=== PATIENT | male | born 1955 | race Caucasian/White ===

== ENCOUNTER 2022-10-24 12:25 | Outpatient (OUT) | payer BC, SELFPAY ==
[2022-10-24 12:59] LABS: Basophils Percent Auto 0.7 % (0.2-2.0); Eosinophils Absolute Auto 0.2 10^3/uL (0.0-0.7); Eosinophils Percent Auto 3.3 % (0.9-7.0); Hematocrit 41.1 % (42.0-54.0); Hemoglobin 14.5 g/dL (14.0-18.0); Lymphocytes Absolute Auto 1.3 10^3/uL (1.2-3.8); Mean Corpuscular HGB Conc 35.3 g/dL (29.9-35.2); Mean Corpuscular Hemoglobin 31.9 pg (25.9-34.0); Mean Corpuscular Volume 90.3 fL (80.0-94.0); Monocytes Absolute Auto 0.5 10^3/uL (0.3-0.8); Monocytes Percent Auto 9.7 % (1.7-12.0); Neutrophils Absolute Auto 3.5 10^3/uL (1.4-6.5); Neutrophils Percent Auto 63.3 % (43.0-75.0); Platelet Count 160 10^3/uL (150-450); Red Blood Count 4.55 10^6/uL (4.70-6.10); Red Cell Distribution Width 12.8 % (11.0-15.0); White Blood Count 5.5 10^3/uL (4.0-11.0)
[2022-10-24 13:29] LABS: Estimated Average Glucose 82 mg/dL; Glycohemoglobin A1C 4.5 % (4.5-6.2)
[2022-10-24 13:40] LABS: Alanine Aminotransferase 30 U/L (16-63); Albumin Globulin Ratio 1.4; Alkaline Phosphatase 56 U/L (46-116); Aspartate Amino Transferase 17 U/L (15-37); BUN Creatinine Ratio 15.9; Bilirubin Direct 0.3 mg/dL (0.0-0.2); Bilirubin Total 2.3 mg/dL (0.2-1.0); Carbon Dioxide 25.7 mmol/L (21.0-32.0); Chloride 102 mmol/L (98-107); Chol HDL Ratio 2.6; Cholesterol 152 mg/dL (<=200); Estimated GFR (African America >60 (>=60); Estimated GFR (Non-African Ame >60 (>=60); Globulin 2.8 g/dL; Glucose 82 mg/dL (74-106); HDL Cholesterol 58 mg/dL (40-60); LDL Cholesterol Calculated 83.6 mg/dL; Potassium 3.7 mmol/L (3.5-5.1); Sodium 138 mmol/L (136-145); Thyroid Stimulating Hormone 1.571 uIU/mL (0.358-3.740); Total Protein 6.8 g/dL (6.4-8.2); Triglycerides 52 mg/dL (<=150); VLDL CHOLESTEROL 10.4 mg/dL
[2022-10-24 13:43] LABS: Prostate Specific Antigen Scrn 4.77 ng/mL (<=4.00)
== END 2022-10-24 12:26 | disposition home or self-care (01) ==
PROVIDERS: PCP Family Medicine; Visit Provider Family Medicine
DX: Z00.00 Encounter for general adult medical examination without abnormal findings (principal); Z12.5 Encounter for screening for malignant neoplasm of prostate
CPT/HCPCS: 36415; 80048; 80061; 80076; 83036; 84443; 85025; G0103

== ENCOUNTER 2022-10-30 12:59 | Outpatient (OUT) | payer BC, SELFPAY ==
--- NOTE | 2022-10-30 13:01 | CA_ITS ---
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1955 Requested By: NICOLAS THOMPSON Order Number: [id number] Reading MD: SHAWN BOWMAN Interpretive Statements Predominant rhythm is sinus with average rate of 57 bpm Tachycardia - max rate of 177 bpm - longest episode of 12sec w/ rate of 101 bpm - 13 episodes of PSVT w/ longest duration of 11 beats Bradycardia - min rate of 33 bpm, occurring at 2346 - longest episdoe of 2h 24min 57sec w/ ratges of 35-48 bpm Ventricular ectopy - 1,081 total (<1%) - 1,051 PVC - 20 couplets - 10 trigeminy Patient triggered events: 11 - associated with symptoms of chest pain, palpitations, SOB and lightheadedness - associated with rates of 59, 52, 55, 56, 55 and the remainder NSR Impression: Predominant rhythm is sinus with average rate of 57 bpm Fastest rate of 177 bpm and slowest rate of 33 bpm 1,051 PVC, 20 couplets, 10 trigeminy 13 episodes of PSVT w longest duration of 11 beats No blocks or pauses Electronically Signed On 11-23-2022 7:36:15 EDT by SHAWN BOWMAN
== END 2022-10-30 13:00 | disposition home or self-care (01) ==
LOC: CARD 13:00
PROVIDERS: PCP Family Medicine; Visit Provider Family Medicine
DX: R07.9 Chest pain, unspecified (principal)
CPT/HCPCS: 93246

== ENCOUNTER 2022-11-06 07:34 | Outpatient (OUT) | payer BC, SELFPAY ==
--- NOTE | 2022-11-06 | PCN_ITS ---
CARDIAC STRESS TEST Requesting Physician:? Procedure Date:? 11/06/2022 This was a treadmill stress test with myocardial perfusion imaging performed at the [facility] on 11/06/2022. Informed consent was obtained.? Intravenous line was secured and the patient was attached to electrocardiographic monitoring.? Baseline vital signs and ECG were obtained.? The patient exercised on the treadmill according to the Quoc protocol for 10 minutes and 14 seconds and reached stage 4 with 11.4 METS achieved.? Resting heart rate was 45 BPM and peak heart rate was 134 BPM, representing 87% of maximal predicted heart rate.?? Resting blood pressure was 90/58 and peak blood pressure was 142/64.? Reason for termination of the test was fatigue and achievement of target heart rate. Resting ECG showed sinus bradycardia with non-specific ST-T wave changes in the inferior leads.? ECG during treadmill exercise test showed evidence of sinus tachycardia with occasional PVCs and upsloping ST segment depressions in the inferior and lateral leads.? At the end of the test, ECG changes resolved and returned to baseline.? The patient went on to obtain myocardial perfusion images following the test. SUMMARY OF THE FINDINGS: 1.? No evidence of ischemic ECG changes seen with stress and exercise test. 2.? Appropriate heart rate and blood pressure response to exercise. 3.? 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 4.? Myocardial perfusion images will be reported separately. BRENDAD
--- NOTE | 2022-11-06 07:15 | NM_ITS ---
Patient: CARMEN EASON Exam Date: 11/06/2022 : 1955 Gender:M Ordering : DR Dmitry Pierre . Admission #: [id number] Family : Order #: [id number] CLICK HERE TO VIEW EXAM RADIOLOGY REPORT PROCEDURE: NM TIFF PERF SPECT REST STR COMPARISON: None. INDICATIONS: PALPITATIONS, SHORTNESS OF BREATH TECHNIQUE: Exam Description: Stress/Rest one day protocol gated SPECT Rest Imagin.2 mCi Tc-99m Cardiolite IV on 11/06/2022 Stress Imaging 26.2 mCi Tc-99m Cardiolite IV on 11/06/2022 Exercise Protocol: Quoc Heart Rate (bpm): Rest: 45 Max: 134 PMHR: 87 Blood Pressure: Rest: 90/58 Max: 142/64 Exercise Time: Minutes: 10 Seconds: 14 Stage Reached: Stage: 4 Mets 11.4 Symptoms: Rest and peak stress ECG findings were pending and the exercise portion of the study was pending per attending physician Dr. BATES . For more details please see separate cardiac stress test report. FINDINGS: QUALITY OF STUDY: Good. PERFUSION DEFECT: LOCATION: Basal inferoseptal. Mid-inferoseptal. Apical inferior. SIZE: Medium (3-4 segments). SEVERITY: Moderate. TYPE: Persistent. WALL MOTION: Normal. LV SIZE: Normal. 113 mL. TID / TCD: 0.8 LVEF: Normal. Calculated EF 69%. SUMMARY: Myocardial perfusion imaging study has ABNORMAL findings. CONCLUSION: 1. Moderate size moderate severity fixed defect inferior wall, RCA distribution 2. No reversible ischemia 3. Exercise test results pending Dictated by: Rizwan Prieto MD on 11/07/2022 at 12:49 Approved by: Rizwan Prieto MD on 11/07/2022 at 12:51
== END 2022-11-06 07:35 | disposition home or self-care (01) ==
LOC: NM 07:34
PROVIDERS: PCP Family Medicine; Visit Provider Family Medicine
DX: R07.9 Chest pain, unspecified (principal)
CPT/HCPCS: 78452; 93017; A9500

== ENCOUNTER 2023-12-13 06:33 | Outpatient (OUT) | payer BC, SELFPAY ==
[2023-12-13 06:54] LABS: Basophils Percent Auto 0.6 % (0.2-2.0); Eosinophils Absolute Auto 0.2 10^3/uL (0.0-0.7); Eosinophils Percent Auto 4.4 % (0.9-7.0); Hemoglobin 14.4 g/dL (14.0-18.0); Immature Granulocytes Abs Auto 0.01 10^3/uL (0.00-0.03); Immature Granulocytes Pct Auto 0.2 % (0.0-0.5); Lymphocytes Absolute Auto 1.2 10^3/uL (1.2-3.8); Lymphocytes Percent Auto 22.6 % (20.5-60.0); Mean Corpuscular HGB Conc 34.3 g/dL (29.9-35.2); Mean Corpuscular Hemoglobin 31.7 pg (25.9-34.0); Mean Corpuscular Volume 92.5 fL (80.0-94.0); Mean Platelet Volume 11.4 fL (9.5-13.5); Monocytes Absolute Auto 0.5 10^3/uL (0.3-0.8); Monocytes Percent Auto 8.7 % (1.7-12.0); Neutrophils Absolute Auto 3.3 10^3/uL (1.4-6.5); Neutrophils Percent Auto 63.5 % (43.0-75.0); Platelet Count 154 10^3/uL (150-450); Red Blood Count 4.54 10^6/uL (4.70-6.10); Red Cell Distribution Width 12.5 % (11.0-15.0); White Blood Count 5.2 10^3/uL (4.0-11.0)
[2023-12-13 07:12] LABS: Estimated Average Glucose 85 mg/dL; Glycohemoglobin A1C 4.6 % (4.5-6.2)
[2023-12-13 07:21] LABS: Alanine Aminotransferase 26 U/L (16-63); Albumin Globulin Ratio 1.6; Albumin Level 3.9 g/dL (3.4-5.0); Alkaline Phosphatase 55 U/L (46-116); Aspartate Amino Transferase 16 U/L (15-37); Bilirubin Direct 0.4 mg/dL (0.0-0.2); Bilirubin Total 2.5 mg/dL (0.2-1.0); Calcium 9.4 mg/dL (8.5-10.1); Chloride 104 mmol/L (98-107); Chol HDL Ratio 2.5; Cholesterol 149 mg/dL (<=200); Estimated GFR (African America >60 (>=60); Estimated GFR (Non-African Ame >60 (>=60); Globulin 2.5 g/dL; Glucose 89 mg/dL (74-106); HDL Cholesterol 60 mg/dL (40-60); LDL Cholesterol Calculated 77.4 mg/dL; Sodium 138 mmol/L (136-145); Thyroid Stimulating Hormone 2.133 uIU/mL (0.358-3.740); Total Protein 6.4 g/dL (6.4-8.2); Triglycerides 58 mg/dL (<=150); VLDL CHOLESTEROL 11.6 mg/dL
[2023-12-13 07:30] LABS: Anion Gap 8.9; Carbon Dioxide 29.1 mmol/L (21.0-32.0)
== END 2023-12-13 06:34 | disposition home or self-care (01) ==
LOC: LAB 06:33
PROVIDERS: PCP Family Medicine; Visit Provider Family Medicine
DX: Z00.00 Encounter for general adult medical examination without abnormal findings (principal)
CPT/HCPCS: 36415; 80048; 80061; 80076; 83036; 84443; 85025; G0103

== ENCOUNTER 2024-01-17 13:59 | Outpatient (OUT) | payer BC, SELFPAY ==
--- OUTSIDE RECORDS SUMMARY | 2024-01-17 14:11 | XMS_ITS | CCD ---
Author Organization [facility] Care Team Providers Care Invoicing Specialist Name Role Phone OREN MARK Admitting Unavailable DR DMITRY THOMPSON Primary Care Unavailable OREN MARK Attending Unavailable OREN MARK Consulting Unavailable DR DMITRY THOMPSON Primary Care Unavailable OREN MARK Admitting Unavailable OREN MARK Attending Unavailable OREN MARK Admitting Unavailable DR DMITRY THOMPSON Primary Care Unavailable OREN MARK Attending Unavailable OREN MARK Consulting Unavailable CATHI SÁNCHEZ Attending Unavailable HILARIO LOAIZA Attending Unavail able DMITRY THOMPSON Attending Unavailable CHHAYA WILLARD Attending Unavailable Dmitry Thompson MD Primary Care Provider [phone] DMITRY THOMPSON Primary Care Physician [phone] Allergies Allergy Classification Reported Allergen(s) Allergy Type Date of Onset Reaction(s) Facility (3 sources) Influenza Vaccines Propensity to adverse reactions 4 Other [facility] (1 source) Influenza virus antigen (substance); Translations: [flu vaccines] Drug allergy Eruption of skin (disorder) [facility] Medications Current Medications Medication Drug Class(es) Dates Sig (Normalized) Sig (Original) Ascorbic Acid (1 source) Vitamin C Start: 4 Vitamin C Daily, Refills(s) 0 Start Date: 12/30/23 Status: Ordered aspirin 81 mg oral capsule (1 source) Platelet Aggregation Inhibitor, Nonsteroidal Anti-inflammatory Drug Start: 4 take 1 mg by mouth every twenty-four hours aspirin 81 mg oral capsule mg cap(s), Oral, q24hr, Refills(s) 0 Start Date: 12/30/23 Status: Ordered bisacodyl 5 mg delayed release oral tablet (2 sources) Stimulant Laxative Start: 4 End: 4 take 1 tablet by mouth once bisacodyl (Dulcolax) 5 MG EC tablet Indications: Screening for malignant neoplasm of colon Take 1 tablet (5 mg) by mouth 1 time for 1 dose Do not crush, chew, or split. Take as detailed on clinic hand out for colonoscopy prep 1 tablet 12/30/2023 12/30/2023 Active Fish Oils (1 source) Start: 4 Fish Oil Oral, Refill(s) 0 Start Date: 12/30/23 Status: Ordered Hydroxychloroquine (3 sources) Antimalarial, Antirheumatic Agent Start: 4 hydroxychloroquine Oral, Refills(s) 0 Start Date: 12/30/23 Status: Ordered take 1 tablet by mouth every wee k hydroxychloroquine (Plaquenil) 200 MG tablet Take 200 mg by mouth 1 (one) time per week Active Ibuprofen (1 source) Nonsteroidal Anti-inflammatory Drug Start: 12-30-2023 ibuprofen Refills(s) 0 Start Date: 12/30/23 Status: Ordered polyethylene glycol 3350 57913 mg powder for oral solution (2 sources) Osmotic Laxative Start: 12-30-2023 End: 12-30-2023 take 17 g by mouth once polyethylene glycol, PEG, 3350 (Glycolax) 17 GM/SCOOP powder Indications: Colonoscopy Take 238 g by mouth 1 (one) time for 1 dose Take as detailed from clinic hand out for colonoscopy prep 238 g 12/30/2023 12/30/2023 Active tadalafil 10 mg oral tablet (1 source) Phosphodiesterase 5 Inhibitor Start: 12-30-2023 Cialis 10 mg Tab 10 mg = 1 tab(s), Oral, As Directed, PRN for erectile dysfunction, # 30 tab(s), Refills(s) 3, Pharmacy: [facility]/pharmacy #[id number], 185, cm, 12/30/23 10:37:00 EDT, Height/Length Dosing, 103, kg, 12/30/23 10:37:00 EDT, Weight Dosing Start Date: 12/30/23 Status: Ordered tamsulosin hydrochloride 0.4 mg oral capsule (1 source) alpha-Adrenergic Petra Start: 12-30-2023 take 1 capsule by mouth once daily tamsulosin 0.4 mg Cap 0.4 mg = 1 cap(s), Oral, Daily, # 30 cap(s), Refills(s) 11, Pharmacy: [facility]/pharmacy #[id number], 185, cm, 12/30/23 10:37:00 EDT, Height/Length Dosing, 103, kg, 12/30/23 10:37:00 EDT, Weight Dosing Start Date: 12/30/23 Status: Ordered Vitamin D (1 source) Start: 12-30-2023 Vitamin D [employer] t, Oral, qWeek, Refills(s) 0 Start Date: 12/30/23 Status: Ordered Problems Active Problems Problem Classification Problem Date Documented Da te Episodic/Chronic Cardiac dysrhythmias (1 source) Atrial fibrillation 12-30-2023 Chronic Headache; including migraine (1 source) Headache 12-30-2023 Episodic Hyperplasia of prostate (5 sources) Benign prostatic hyperplasia; Translations: [Benign prostatic hyperplasia with lower urinary tract symptoms] Onset: 4 12-02-2023 Chronic Other male genital disorders (2 sources) Male erectile dysfunction, unspecified; Translations: [Erectile dysfunction] Onset: 4 Chronic Other nutritional; endocrine; and metabolic disorders (4 sources) Gilbert's syndrome; Translations: [Gilbert syndrome] Onset: 4 12-02-2023 Chronic Other screening for suspected conditions (not mental disorders or infectious disease) (7 sources) Raised prostate specific antigen; Translations: [Elevated prostate specific antigen [PSA]] Onset: 4 12-13-2023 Episodic Other upper respiratory disease (3 sources) Allergic rhinitis; Translations: [Allergic rhinitis, unspecified] Onset: 4 12-02-2023 Chronic Phlebitis; thrombophlebitis and thromboembolism (3 sources) Thrombophlebitis of superficial veins of lower extremity; Translations: [Phlebitis and thrombophlebitis of superficial vessels of left lower extremity] Onset: 4 12-02-2023 Episodic Residual codes; unclassified (3 sources) Obstructive sleep apnea syndrome; Translations: [Obstructive sleep apnea (adult) (pediatric)] Onset: 4 12-02-2023 Chronic Unclassified (3 sources) CONTACT W/AND (SUSP) EXPOS COVID-19; Translations: [CONTACT W/AND (SUSP) EXPOS COVID-19] Onset: 2 Varicose veins of lower extremity (3 sources) Varicose veins of lower extremity; Translations: [Varicose veins of bilateral lower extremities with pain] Onset: 4 12-02-2023 Episodic Viral infection (1 source) COVID-19; Translations: [COVID-19] Onset: 2 Past or Other Problems Problem Classification Problem Date Documented Da te Episodic/Chronic Nonspecific chest pain (3 sources) Central chest pain; Translations: [Chest pain, unspecified] Onset: 12-02-2023 Resolved: 12-02-2023 12-02-2023 Episodic Unclassified (1 source) CONTACT W/AND (SUSP) EXPOS COVID-19; Translations: [CONTACT W/AND (SUSP) EXPOS COVID-19] Onset: 12-27-2021 Results Test Name Value Interpretation Reference Range Facility Ambulatory Visit Summaryon 1 Ambulatory Visit Summary Ambulatory Visit Summary SERGIO EASON :1955 Visit Date:12/30/2023 Ambulatory Visit Instructions Your Diagnosis Elevated PSA BPH with urinary obstruction ED (erectile dysfunction) Tests Performed MRI Pelvis (Soft Tissue) w/ + w/o contrast -- Results Pending -- Please visit your patient portal for your results or contact your primary care physician. Your Care Team Attending Physician - HILARIO LOAIZA MD Primary Care Physician - DMITRY THOMPSON MD This Is Your Medications List Contact prescribing physician if questions or concerns ascorbic acid (Vitamin C) aspirin (aspirin 81 mg oral capsule) ergocalciferol (Vitamin D) hydroxychloroquine ibuprofen omega-3 polyunsaturated fatty acids (Fish Oil) Procedures Performed Colonoscopy. Discharge Vitals Heart Rate (Peripheral) 51 Blood Pressure 129/78 Height 185 cm Height 73 in Weight 103 kg Weight 226.6 lb BMI 30.09 What to do next You Need to Schedule the Following Appointments Follow Up with HILARIO LOAIZA MD, URL When: Where: Medications What How Much When Instructions Unchanged ascorbic acid (Vitamin C) Every day Contact prescribing physician if questions or concerns Unchanged aspirin (aspirin 81 mg oral capsule) Every 24 hours Contact prescribing physician if questions or concerns Unchanged ergocalciferol (Vitamin D) Every week Contact prescribing physician if questions or concerns Unchanged hydroxychloroquine Contact prescribing physician if questions or concerns Unchanged ibuprofen Contact prescribing physician if questions or concerns Unchanged omega-3 polyunsaturated fatty acids (Fish Oil) Contact prescribing physician if questions or concerns Allergies flu vaccines (Rash) Problems Ongoing - Any problem that you are currently receiving treatment for. Atrial fibrillation BPH with urinary obstruction ED (erectile dysfunction) Elevated PSA Montcalm syndrome Headache Patient Survey You may receive a survey via text or e-mail asking about your office visit. Please share your experience with us by completing your survey. We appreciate your feedback and thank you for choosing us for your care. Education Materials Prostate Cancer Screening Prostate cancer screening is testing that is done to check for the presence of prostate cancer in men. The prostate gland is a walnut-sized gland that is located below the bladder and in front of the rectum in males. The function of the prostate is to add fluid to semen during ejaculation. Prostate cancer is one of the most common types of cancer in men. Who should have prostate cancer screening? Screening recommendations vary based on age and other risk factors, as well as between the professional organizations who make the recommendations. In general, screening is recommended if: ? You are age 50 to 70 and have an average risk for prostate cancer. You should talk with your health care provider about your need for screening and how often screening should be done. Because most prostate cancers are slow growing and will not cause , screening in this age group is generally reserved for men who have a 10- to 15-year life expectancy. ? You are younger than age 50, and you have these risk factors: ? Having a father, brother, or uncle who has been diagnosed with prostate cancer. The risk is higher if your family member's cancer occurred at an early age or if you have multiple family members with prostate cancer at an early age. ? Being a male who is Black or is of [place] or sub-Saharan descent. In general, screening is not recommended if: ? You are younger than age 40. ? You are between the ages of 40 and 49 and you have no risk factors. ? You are 70 years of age or older. At this age, the risks that screening can cause are greater than the benefits that it may provide. If you are at high risk for prostate cancer, your health care provider may recommend that you have screenings more often or that you start screening at a younger age. How is screening for prostate cancer done? The recommended prostate cancer screening test is a blood test called the prostate-specific antigen (PSA) test. PSA is a protein that is made in the prostate. As you age, your prostate naturally produces more PSA. Abnormally high PSA levels may be caused by: ? Prostate cancer. ? An enlarged prostate that is not caused by cancer (benign prostatic hyperplasia, or BPH). This condition is very common in older men. ? A prostate gland infection (prostatitis) or urinary tract infection. ? Certain medicines such as male hormones (like testosterone) or other medicines that raise testosterone levels. A rectal exam may be done as part of prostate cancer screening to help provide information about the size of your prostate gland. When a rectal exam is performed, it should be done after th (more content not included)... Normal [facility] Urology Office/Clinic Noteon 12-30-2023 Urology Office/Clinic Note Urology Office/Clinic Note Chief Complaint new patient - elevated psa HPI Staff [address] male [address] Dr[address] Thompson for elevated PSA. PSA: 12/28/14 - 1.68 09/16/19 - 2.08 12/13/23 - 8.50 Dysuria: no Incomplete bladder emptying: no Hematuria: no Frequency: q2-3 hours Urgency: mild Nocturia: 1x Stream: slower stream Leaking: no Post void dripping: no Wearing pads/ Depends: no Urge incontinence: no Stress incontinence: no Incontinence without Sensory Awareness: no Abdominal pain: no Flank pain: no Sexual complaints: no History of Present Illness Tests reviewed: reviewed UA, PSA, labs, external records. I have reviewed the previous health record information and history for this patient from external provider. I have reviewed and verified the staff HPI to be accurate for this encounter. There have been no associated fever, chills, flank pain, or blood in the urine. Denies any urinary infections since last encounter. Review of Systems PHQ Score Initial Depression Screen Score: 0 SCORE ROS - Provider Constitutional: denies weight loss, denies hot flashes. Eyes: denies eye problems. Gastrointestinal: denies nausea, denies vomiting. Cardiovascular: denies chest pain or angina. Integumentary: no dryness Musculoskeletal: denies musculoskeletal symptoms. ENMT: denies otolaryngeal symptoms. Respiratory: no shortness of breath. Heme/Lymph: denies easy bleeding tendency, denies easy bruising tendency. Psychiatric: no confusion, no anxiety. Genitourinary: See HPI. Physical Exam Vitals & Measurements HR: 51(Peripheral) BP: 129/78 HT: 73 in HT: 185 cm WT: 103 kg WT: 226.6 lb BMI: 30.09 General Appearance: alert, no distress, well nourished, well developed male. Head: normocephalic . Eyes: normal orbit and globe. ENMT: normal examination of external ears. Genitourinary: normal scrotum, normal testes, normal urethra, normal epididymis, normal vas deferens/spermatic cord. Penis: normal shaft, normal glans, circumcised. Prostate: normal prostate, estimated weight 45 gms, no hard nodule observed. Skin: warm, dry, no bruising. Psychiatric: cooperative, affect appropriate for age, normal judgement, euthymic mood. Assessment/Plan [address] Dr[address] Thompson for elevated PSA. Hx of Gilbert's Disease. Anesthesia complication ~vomiting. Denies diabetes or HTN. No former smoking history. No prior abdominal surgeries. Denies ND or CVA. Pt states he had a heart monitor placed 6 months ago and was told he had an abnormal rhythm but this was never diagnosed. Lipids 12/13/23 wnl. BMP 12/13/23 Cr 0.94, eGFR >60. Portions of this record may have been created with voice recognition artificial intelligence software, specifically [employer], [employer] and or [employer]. Substitutions may have occurred due to the inherent limitations of voice recognition and artificial intelligence software. 1. Elevated PSA (R97.20: Elevated prostate specific antigen [PSA]) PSA: 12/28/14 - 1.68 09/16/19 - 2.08 12/13/23 - 8.50 No recent imaging. Had 1 episode of painful ejaculation. Unsure of time frame. Limited family history due to being adopted. Today I reviewed the patients past history including voiding symptoms, PSA history and any prior prostate biopsy information that is available. We discussed the controversies that exist in the field of PSA based cancer testing and the absence of exact correlation of PSA data to the presence or absence of prostate cancer on biopsy. I discussed the production of PSA by the prostate gland as well as common causes of elevated serum PSA including infection, inflammation, BPH and prostate cancer. He understood that his PSA level may also be falsely elevated due to any manipulation/instrument ation around the time of a PSA draw. I discussed the absolute value of PSA as well as PSA velocity and age specific PSA and the implications with the patient. The PCPT (prostate cancer prevention trial) risk calculator estimates his risk of prostate cancer to be 32% including a 12% risk of high grade disease and a 20% risk of low grade disease. I gave the patient management options moving forward and explained the risks/benefits of each one: -Continue monitoring PSA with repeat in 6-12 months -Obtain additional biomarkers such as select MDX -Obtain prostate MRI to evaluate for suspicious lesions. He understands MRIs may miss malignancy in 12-16% of patients. Pt inquired if HIFU is done locally. Advised pt that he would need to be referred for this, but it depends if prostate CA is present, and pt would have to be a candidate for this specific treatment. Physical exam ~circumcised. No abnormalities found on exam. Descended testes. KATE: ~45g, no nodules. Plan: -Will schedule MRI of prostate, pt to be called with results -If MRI is abnormal, will schedule MRI fusion prostate biopsy, transrectal approach 2. BPH with urinary obstruction (N40 (more content not included)... Normal [facility] Comment on above: Result Comment: Elec tronically Signed By: HILARIO LOAIZA MD\.br\Date and Time Signed: 12/30/23 11:00 EDT\.br\Electronically Co-Signed By: Riri Segura.br\Date and Time Co-Signed: 12/30/23 10:51 EDT Letter (Out)on 11-19-2022 Letter (Out) [id number] Sergio Eason 1955 M Date Provider Department Center 11/19/2022 None-None [facility] [place] [facility] Family History Adopted: Yes Normal [facility] Letter (Out)on 11-15-2022 Letter (Out) [id number] Sergio Eason 1955 M Date Provider Department Center 11/15/2022 None-None [facility] Family History Adopted: Yes Normal [facility] Office Visiton 11-14-2022 Follow-up visit [id number] Sergio Eason 1955 M Date Provider Department Center 11/14/2022 Beny8-GENASAM CHAMBERLAINHAMLET AVELINO [place] [facility] Family History Adopted: Yes Level of Service:[address] [place] OFFICE/OUTPATIENT NEW MODERATE MDM 45-59 MINUTES Normal [facility] Orders Onlyon 11-14-2022 Orders Only [id number] Sergio Eason 1955 M Date Provider Department Center 11/14/2022 895LEONEL PENDLETON AVELINO [place] [facility] Family History Adopted: Yes Normal [facility] ASYMPTOMATIC COVID-19 ANTIGE Non 12-27-2021 EUA Statement SEE BELOW Normal [facility] Comment on above: Result Comment: This test has not been FDA cleared or approved, but has been authorized by the FDA under an Emergency Use Authorization (EUA) for use by authorized laboratories certified under CLIA that meet the requirements to perform moderate or high complexity testing. This test has been authorized only for the detection of proteins from SARS-CoV-2, not for any other viruses or pathogens. The emergency use of this test is authorized for the duration of the declaration that circumstances exist justifying the authorization of emergency use of in vitro diagnostic tests for detection and/or diagnosis of Covid-19 under section 564(b)(1) of the Act, 21 U.S.C. 360bbb-3(b)(1), unless the declaration is terminated or authorization is revoked sooner. Performed By: #### C VDAGA #### [facility] [address] [place] [address] Dr. Margarita Arellano SARS-CoV-2 (COVID-19) RNA CINTHYA+probe Ql (Unsp spec) Negative Normal NEGATIVE [facility] Comment on above: Result Comment: Nega tive results are presumptive. They do not preclude infection and should not be used as the sole basis for treatment decisions. Additional confirmatory testing by a molecular method should be considered. Performed By: #### C VDAGA #### [facility] [address] [place], [place] [address] Dr. Margarita Arellano Covid-19 PCR (CVDTB)on 11-24 SARS-CoV-2 (COVID-19) RNA CINTHYA+probe Ql (Unsp spec) Detected Critically abnormal NOT DETECTED [facility] Comment on above: Result Comment: This test is not yet approved or cleared by the [place] FDA. When there are no FDA-approved or cleared tests available, and other criteria are met, FDA can make tests available under an emergency access mechanism called an Emergency Use Authorization (EUA). The EUA for this test is supported by the [place] of Health and Human Service's (HHS's) declaration that circumstances exist to justify the emergency use of in vitro diagnostics for the detection and/or diagnosis of the virus that causes COVID-19. This EUA will remain in effect (meaning this test can be used) for the duration of the COVID-19 declaration justifying emergency of IVDs, unless it is terminated or revoked by FDA (after which the test may no longer be used). Performed By: #### [facility] #### [facility] [address] [place], [place] [address] Dr. Margarita Arellano Vital Signs Date Time Vital Sign Value Performing Clinician Facility 12-30-2023 13:040 Body height 185.4 cm [employer] Phone: [facility] [employer] 12-30-2023 13:040 Body mass index (BMI) [Ratio] 29.82 kg/m2 [employer] Phone: [facility] 12-30-2023 13:040 Body weight 102.51 kg [employer] Phone: [facility] 12-30-2023 13:040 Diastolic blood pressure 68 mm[Hg] [employer] Phone: [facility] 12-30-2023 13:040 Heart rate 57 /min [employer] Phone: [facility] 12-30-2023 13:0400 Respiratory rate 12 /min Chhaya Willard DO Work Phone: [facility] 12-30-2023 13:26-0400 SaO2% (BldA) [Mass fraction] 97 % Chhaya Willard DO Work Phone: [facility] 12-30-2023 13:26-0400 Systolic blood pressure 126 mm[Hg] Chhaya Willard DO Work Phone: [facility] 12-30-2023 10:36-0400 Blood Pressure Location HILARIO GRIMALDOANSAH-AMANKRA [facility] 12-30-2023 10:36-0400 Diastolic blood pressure 78 mm[Hg] HILARIO GRIMALDOANSAH-AMANKRA [facility] 12-30-2023 10:36-0400 Heart rate 51 /min HILARIOWHITNEY GRIMALDOANSAH-AMANKRA [facility] 12-30-2023 10:36-0400 Systolic blood pressure 129 mm[Hg] HILARIO GRIMALDOANSAH-AMANKRA [facility] Encounters Encounter Date Encounter Type Care Provider Facility Start: 12-30-2023 End: 12-30-2023 Bamboo flowsheet Chhaya Willard DO Work Phone: [facility] Start: 12-30-2023 End: 12-30-2023 Bamboo flowsheet Chhaya Willard DO Work Phone: [facility] Start: 12-30-2023 End: 12-30-2023 Patient encounter procedure Chhaya Willard DO Work Phone: [facility] Comment on above: Screening for malign ant neoplasm of colon (Primary Dx) Start: 12-30-2023 End: 12-30-2023 ambulatory CHHAYA WILLARD Not Available Start: 12-30-2023 End: 12-30-2023 ambulatory HILARIO LOAIZA Facility:[facility] Start: 12-30-2023 End: 12-30-2023 Patient encounter procedure HILARIO LOAIZA [facility] Start: 12-17-2023 ambulatory HILARIO LOAIZA Facility:[facility] Start: 12-02-2023 Patient encounter procedure Chhaya Willard DO Work Phone: [facility] Start: 12-02-2023 End: 12-02-2023 ambulatory DMITRY THOMPSON Not Available Start: 11-14-2022 End: 11-14-2022 [facility] Start: 12-27-2021 End: 12-27-2021 ambulatory OREN JAS Facility:[facility] Start: 12-21-2021 End: 12-21-2021 ambulatory OREN JAS Facility:[facility] Start: 03-31-2021 End: 03-31-2021 ambulatory OREN JAS Facility:[facility] Procedures Date Procedure Procedure Detail Performing Clinician Colonoscopy HILARIO RODRIGUEZ Plan of Treatment Date Care Activity Detail Author Start: 12-07-2024 End: 12-07-2024 Patient encounter procedure 12/07/2024 8:00 AM EDT Office Visit [facility] [address] [place] [phone] Dmitry Thompson MD [address] [place] [phone] [facility] Start: 12-30-2023 End: 12-30-2023 Patient encounter procedure 12/30/2023 1:30 PM EDT Office Visit [facility] [address] [place] [address] Chhaya Willard DO [address] [place] [address] Arrived [facility] Comment on above: Arrived Start: 11-24-2023 Influenza vaccination Influenza Vacc ine (#1) [facility] Start: 2021 Pneumococcal Vaccine : 65+ Years (1 of 1 - PCV) Pneumococcal Vaccine: 65+ Years (1 of 1 - PCV) [facility] Start: 1955 Screening for malign ant neoplasm of colon [facility] Payers Date Payer Category Payer Unknown BCBS BCBS [id number] 2022-Present [phone] [address] [place] [address] [id number] 2022 Unknown [id number] 2019 Unknown [id number] 1955 Unknown [id number] 1955 Unknown [id number] 1955 Unknown [id number] 1955 Unknown [id number] 1955 Unknown [id number] 1955 Unknown [id number] 1955 Unknown [id number] Social History Date Type Detail Facility Start: 12-02-2023 End: 12-30-2023 Tobacco smoking status NHIS Never smoked tobacco [facility] Start: 12-02-2023 Tobacco use and exposure Smokeless tobacco non-user [facility] Start: 12-02-2023 End: 12-30-2023 History of Social function [facility] Start: 12-02-2023 End: 12-30-2023 Tobacco use panel [facility] Start: 1955 Sex assigned at Not on file [facility] Functional Status Date Assessment Result Facility 12-30-2023 Functional Status N/A [facility] History of Present illness Narrative 12-30-2023 Chhaya Willard DO - 12/30/2023 1:30 PM EDT Note Date & Type Note Facility 12-30-2023 History of Presen t illness Narrative General Surgery H&P Sergio Eason 1955 Sergio Eason is a 68 y.o. male presents with chief complaint of Colonoscopy (Pt presents today for a colonoscopy consult. Pt denies/admits to: admits to having a colonoscopy before. Last colonoscopy wasn about 10 years ago and it was normal. Pt denies abdominal pain. Pt denies rectal bleeding. Pt denies changes in bowel movements. Pt denies a family history of colon cancer that they know of. Pt denies any concern today. ) Denies hx of unplanned weight loss. Denies fevers, chills, or sweats. Denies nausea or vomiting. Last colonoscopy was 2013 SUBJECTIVE: MEDICATIONS: ALLERGIES Current Outpatient Medications Medication Instructions bisacodyl (DULCOLAX) 5 mg, Oral, Once, Do not crush, chew, or split. Take as detailed on clinic hand out for colonoscopy prep hydroxychloroquine (PLAQUENIL) 200 mg, Oral, Weekly polyethylene glycol (PEG) 3350 (GLYCOLAX) 238 g, Oral, Once, Take as detailed from clinic hand out for colonoscopy prep Allergies Allergen Reactions Influenza Vaccines Other PAST MEDICAL HISTORY: SOCIAL HISTORY SURGICAL HISTORY: History reviewed. No pertinent past medical history. Social History Tobacco Use Smoking status: Never Smokeless tobacco: Never Past Surgical History: Procedure Laterality Date KNEE ARTHROSCOPY W/ DEBRIDEMENT Left SHOULDER ARTHROSCOPY W/ LABRAL REPAIR Left No family history on file. Allergies Allergen Reactions Influenza Vaccines Other Past Surgical History: Procedure Laterality Date KNEE ARTHROSCOPY W/ DEBRIDEMENT Left SHOULDER ARTHROSCOPY W/ LABRAL REPAIR Left Tobacco Use: Low Risk (12/30/2023) Patient History Smoking Tobacco Use: Never Smokeless Tobacco Use: Never Passive Exposure: Not on file Alcohol Use: Not on file Depression: Not on file Physical Activity: Not on file REVIEW OF SYMPTOMS: Review of Systems All other systems reviewed and are negative. 10 systems were reviewed. Positives noted above. Remainder are negative per CMS guidelines. OBJECTIVE: Visit Vitals BP 126/68 Pulse 57 Resp 12 Ht 6' 1 Wt 226 lb SpO2 97% BMI 29.82 kg/m Smoking Status Never BSA 2.3 m Physical Exam Vitals reviewed. General: AAOx3, NAD Head: atraumatic normocephalic Neck: trachea midline. No masses or lymphadenopathy Heart: Regular rate and rhythm Lungs: equal chest rise and fall, non labored breathing Abdomen: soft, nontender, and non distended Ext: motor 5/5 all extremities with no gross deformities Psych: alert and oriented, behavior appropriate ASSESSMENT AND PLAN: Assessment/Plan Diagnoses and all orders for this visit: Screening for malignant neoplasm of colon - bisacodyl (Dulcolax) 5 MG EC tablet; Take 1 tablet (5 mg) by mouth 1 time for 1 dose Do not crush, chew, or split. Take as detailed on clinic hand out for colonoscopy prep - polyethylene glycol, PEG, 3350 (Glycolax) 17 GM/SCOOP powder; Take 238 g by mouth 1 (one) time for 1 dose Take as detailed from clinic hand out for colonoscopy prep Plan: Patient is average risk for colon cancer. Colonoscopy can be scheduled electively. Patient informed of the risks of procedure which include but not limited to bleeding, perforation, and risks of anesthesia. Patient understood risks and signed informed consent for the procedure under monitored anesthesia care. Handout for bowel prep provided in clinic. Patient was informed of the need for a ride home from the hospital and the need for someone to be with them for the following 24 hrs post procedure. Thank you, Herminio Willard DO documented in this encounter [facility] Discharge instructions 12-30-2023 Note Date & Type Note Facility 12-30-2023 Hospital Discharge instructions Patient Education 12/30/2023 10:48:00 Prostate Cancer Screening Prostate Cancer Screening Prostate cancer screening is testing that is done to check for the presence of prostate cancer in men. The prostate gland is a walnut-sized gland that is located below the bladder and in front of the rectum in males. The function of the prostate is to add fluid to semen during ejaculation. Prostate cancer is one of the most common types of cancer in men. Who should have prostate cancer screening? Screening recommendations vary based on age and other risk factors, as well as between the professional organizations who make the recommendations. In general, screening is recommended if: You are age 50 to 70 and have an average risk for prostate cancer. You should talk with your health care provider about your need for screening and how often screening should be done. Because most prostate cancers are slow growing and will not cause , screening in this age group is generally reserved for men who have a 10- to 15-year life expectancy. You are younger than age 50, and you have these risk factors: ?Having a father, brother, or uncle who has been diagnosed with prostate cancer. The risk is higher if your family member's cancer occurred at an early age or if you have multiple family members with prostate cancer at an early age. ?Being a male who is Black or is of [place] or sub-Saharan descent. In general, screening is not recommended if: You are younger than age 40. You are between the ages of 40 and 49 and you have no risk factors. You are 70 years of age or older. At this age, the risks that screening can cause are greater than the benefits that it may provide. If you are at high risk for prostate cancer, your health care provider may recommend that you have screenings more often or that you start screening at a younger age. How is screening for prostate cancer done? The recommended prostate cancer screening test is a blood test called the prostate-specific antigen (PSA) test. PSA is a protein that is made in the prostate. As you age, your prostate naturally produces more PSA. Abnormally high PSA levels may be caused by: Prostate cancer. An enlarged prostate that is not caused by cancer (benign prostatic hyperplasia, or BPH). This condition is very common in older men. A prostate gland infection (prostatitis) or urinary tract infection. Certain medicines such as male hormones (like testosterone) or other medicines that raise testosterone levels. A rectal exam may be done as part of prostate cancer screening to help provide information about the size of your prostate gland. When a rectal exam is performed, it should be done after the PSA level is drawn to avoid any effect on the results. Depending on the PSA results, you may need more tests, such as: A physical exam to check the size of your prostate gland, if not done as part of screening. Blood and imaging tests. A procedure to remove tissue samples from your prostate gland for testing (biopsy). This is the only way to know for certain if you have prostate cancer. What are the benefits of prostate cancer screening? Screening can help to identify cancer at an early stage, before symptoms start and when the cancer can be treated more easily. There is a small chance that screening may lower your risk of dying from prostate cancer. The chance is small because prostate cancer is a slow-growing cancer, and most men with prostate cancer from a different cause. What are the risks of prostate cancer screening? The main risk of prostate cancer screening is diagnosing and treating prostate cancer that would never have caused any symptoms or problems. This is called overdiagnosisand overtreatment. PSA screening cannot tell you if your PSA is high due to cancer or a different cause. A prostate biopsy is the only procedure to diagnose prostate cancer. Even the results of a biopsy may not tell you if your cancer needs to be treated. Slow-growing prostate cancer may not need any treatment other than monitoring, so diagnosing and treating it may cause unnecessary stress or other side effects. Questions to ask your health care provider When should I start prostate cancer screening? What is my risk for prostate cancer? How often do I need screening? What type of screening tests do I need? How do I get my test results? What do my results mean? Do I need treatment? Where to find more information The [place] [employer]: www.cancer.org [place] [employer]: www.auanet.org Contact a health care provider if: You have difficulty urinating. You have pain when you urinate or ejaculate. You have blood in your urine or semen. You have pain in your back or in the area of your prostate. Summary Prostate cancer is a common type of cancer in men. The prostate gland is located below the bladder and in front of the rectum. This gland adds fluid to semen during ejaculation. Prostate cancer screening may identify cancer at an early stage, when the cancer can be treated more easily and is less likely to have spread to other areas of the body. The prostate-specific antigen (PSA) test is the recommended screening test for prostate cancer, but it has associated risks. Discuss the risks and benefits of prostate cancer screening with your health care provider. If you are age 70 or older, the risks that screening can cause are greater than the benefits that it may provide. This information is not intended to replace advice given to you by your health care provider. Make sure you discuss any questions you have with your health care provider. Document Revised: 09/04/2021 Document Reviewed: 09/04/2021 Education Everytime Patient Education 2023 [email or web address] 12/30/2023 10:47:59 Erectile Dysfunction Erectile Dysfunction Erectile dysfunction (ED) is the inability to get or keep an erection in order to have sexual intercourse. ED is considered a symptom of an underlying disorder and is not considered a disease. ED may include: Inability to get an erection. Lack of enough hardness of the erection to allow penetration. Loss of erection before sex is finished. What are the causes? This condition may be caused by: Physical causes, such as: ?Artery problems. This may include heart disease, high blood pressure, atherosclerosis, and diabetes. ?Hormonal problems, such as low testosterone. ?Obesity. ?Nerve problems. This may include back or pelvic injuries, multiple sclerosis, Parkinson's disease, spinal cord injury, and stroke. Certain medicines, such as: ?Pain relievers. ?Antidepressants. ?Blood pressure medicines and water pills (diuretics). ?Cancer medicines. ?Antihistamines. ?Muscle relaxants. Lifestyle factors, such as: ?Use of drugs such as marijuana, cocaine, or opioids. ?Excessive use of alcohol. ?Smoking. ?Lack of physical activity or exercise. Psychological causes, such as: ?Anxiety or stress. ?Sadness or depression. ?Exhaustion. ?Fear about sexual performance. ?Guilt. What are the signs or symptoms? Symptoms of this condition include: Inability to get an erection. Lack of enough hardness of the erection to allow penetration. Loss of the erection before sex is finished. Sometimes having normal erections, but with frequent unsatisfactory episodes. Low sexual satisfaction in either partner due to erection problems. A curved penis occurring with erection. The curve may cause pain, or the penis may be too curved to allow for intercourse. Never having nighttime or morning erections. How is this diagnosed? This condition is often diagnosed by: Performing a physical exam to find other diseases or specific problems with the penis. Asking you detailed questions about the problem. Doing tests, such as: ?Blood tests to check for diabetes mellitus or high cholesterol, or to measure hormone levels. ?Other tests to check for underlying health conditions. ?An ultrasound exam to check for scarring. ?A test to check blood flow to the penis. Doing a sleep study at home to measure nighttime erections. How is this treated? This condition may be treated by: Medicines, such as: ?Medicine taken by mouth to help you achieve an erection (oral medicine). ?Hormone replacement therapy to replace low testosterone levels. ?Medicine that is injected into the penis. Your health care provider may instruct you how to give yourself these injections at home. ?Medicine that is delivered with a short applicator tube. The tube is inserted into the opening at the tip of the penis, which is the opening of the urethra. A tiny pellet of medicine is put in the urethra. The pellet dissolves and enhances erectile function. This is also called MUSE (medicated urethral system for erections) therapy. Vacuum pump. This is a pump with a ring on it. The pump and ring are placed on the penis and used to create pressure that helps the penis become erect. Penile implant surgery. In this procedure, you may receive: ?An inflatable implant. This consists of cylinders, a pump, and a reservoir. The cylinders can be inflated with a fluid that helps to create an erection, and they can be deflated after intercourse. ?A semi-rigid implant. This consists of two silicone rubber rods. The rods provide some rigidity. They are also flexible, so the penis can both curve downward in its normal position and become straight for sexual intercourse. Blood vessel surgery to improve blood flow to the penis. During this procedure, a blood vessel from a different part of the body is placed into the penis to allow blood to flow around (bypass) damaged or blocked blood vessels. Lifestyle changes, such as exercising more, losing weight, and quitting smoking. Follow these instructions at home: Medicines Take [id number] and prescription medicines only as told by your health care provider. Do not increase the dosage without first discussing it with your health care provider. If you are using self-injections, do injections as directed by your health care provider. Make sure you avoid any veins that are on the surface of the penis. After giving an injection, apply pressure to the injection site for 5 minutes. Talk to your health care provider about how to prevent headaches while taking ED medicines. These medicines may cause a sudden headache due to the increase in blood flow in your body. General instructions Exercise regularly, as directed by your health care provider. Work with your health care provider to lose weight, if needed. Do not use any products that contain nicotine or tobacco. These products include cigarettes, chewing tobacco, and vaping devices, such as e-cigarettes. If you need help quitting, ask your health care provider. Before using a vacuum pump, read the instructions that come with the pump and discuss any questions with your health care provider. Keep all follow-up visits. This is important. Contact a health care provider if: You feel nauseous. You are vomiting. You get sudden headaches while taking ED medicines. You have any concerns about your sexual health. Get help right away if: You are taking oral or injectable medicines and you have an erection that lasts longer than 4 hours. If your health care provider is unavailable, go to the nearest emergency room for evaluation. An erection that lasts much longer than 4 hours can result in permanent damage to your penis. You have severe pain in your groin or abdomen. You develop redness or severe swelling of your penis. You have redness spreading at your groin or lower abdomen. You are unable to urinate. You experience chest pain or a rapid heartbeat (palpitations) after taking oral medicines. These symptoms may represent a serious problem that is an emergency. Do not wait to see if the symptoms will go away. Get medical help right away. Call your local emergency services (911 in the [place] Do not drive yourself to the hospital. Summary Erectile dysfunction (ED) is the inability to get or keep an erection during sexual intercourse. This condition is diagnosed based on a physical exam, your symptoms, and tests to determine the cause. Treatment varies depending on the cause and may include medicines, hormone therapy, surgery, or a vacuum pump. You may need follow-up visits to make sure that you are using your medicines or devices correctly. Get help right away if you are taking or injecting medicines and you have an erection that lasts longer than 4 hours. This information is not intended to replace advice given to you by your health care provider. Make sure you discuss any questions you have with your health care provider. Document Revised: 06/07/2021 Document Reviewed: 06/07/2021 Education Everytime Patient Education 2023 [email or web address] 12/30/2023 10:47:57 Benign Prostatic Hyperplasia Benign Prostatic Hyperplasia Benign prostatic hyperplasia (BPH) is an enlarged prostate gland that is caused by the normal aging process. The prostate may get bigger as a man gets older. The condition is not caused by cancer. The prostate is a walnut-sized gland that is involved in the production of semen. It is located in front of the rectum and below the bladder. The bladder stores urine. The urethra carries stored urine out of the body. An enlarged prostate can press on the urethra. This can make it harder to pass urine. The buildup of urine in the bladder can cause infection. Back pressure and infection may progress to bladder damage and kidney (renal) failure. What are the causes? This condition is part of the normal aging process. However, not all men develop problems from this condition. If the prostate enlarges away from the urethra, urine flow will not be blocked. If it enlarges toward the urethra and compresses it, there will be problems passing urine. What increases the risk? This condition is more likely to develop in men older than 50 years. What are the signs or symptoms? Symptoms of this condition include: Getting up often during the night to urinate. Needing to urinate frequently during the day. Difficulty starting urine flow. Decrease in size and strength of your urine stream. Leaking (dribbling) after urinating. Inability to pass urine. This needs immediate treatment. Inability to completely empty your bladder. Pain when you pass urine. This is more common if there is also an infection. Urinary tract infection (UTI). How is this diagnosed? This condition is diagnosed based on your medical history, a physical exam, and your symptoms. Tests will also be done, such as: A post-void bladder scan. This measures any amount of urine that may remain in your bladder after you finish urinating. A digital rectal exam. In a rectal exam, your health care provider checks your prostate by putting a lubricated, gloved finger into your rectum to feel the back of your prostate gland. This exam detects the size of your gland and any abnormal lumps or growths. An exam of your urine (urinalysis). A prostate specific antigen (PSA) screening. This is a blood test used to screen for prostate cancer. An ultrasound. This test uses sound waves to electronically produce a picture of your prostate gland. Your health care provider may refer you to a specialist in kidney and prostate diseases (urologist). How is this treated? Once symptoms begin, your health care provider will monitor your condition (active surveillance or watchful waiting). Treatment for this condition will depend on the severity of your condition. Treatment may include: Observation and yearly exams. This may be the only treatment needed if your condition and symptoms are mild. Medicines to relieve your symptoms, including: ?Medicines to shrink the prostate. ?Medicines to relax the muscle of the prostate. Surgery in severe cases. Surgery may include: ?Prostatectomy. In this procedure, the prostate tissue is removed completely through an open incision or with a laparoscope or robotics. ?Transurethral resection of the prostate (TURP). In this procedure, a tool is inserted through the opening at the tip of the penis (urethra). It is used to cut away tissue of the inner core of the prostate. The pieces are removed through the same opening of the penis. This removes the blockage. ?Transurethral incision (TUIP). In this procedure, small cuts are made in the prostate. This lessens the prostate's pressure on the urethra. ?Transurethral microwave thermotherapy (TUMT). This procedure uses microwaves to create heat. The heat destroys and removes a small amount of prostate tissue. ?Transurethral needle ablation (TUNA). This procedure uses radio frequencies to destroy and remove a small amount of prostate tissue. ?Interstitial laser coagulation (ILC). This procedure uses a laser to destroy and remove a small amount of prostate tissue. ?Transurethral electrovaporization (TUVP). This procedure uses electrodes to destroy and remove a small amount of prostate tissue. ?Prostatic urethral lift. This procedure inserts an implant to push the lobes of the prostate away from the urethra. Follow these instructions at home: Take [id number] and prescription medicines only as told by your health care provider. Monitor your symptoms for any changes. Contact your health care provider with any changes. Avoid drinking large amounts of liquid before going to bed or out in public. Avoid or reduce how much caffeine or alcohol you drink. Give yourself time when you urinate. Keep all follow-up visits. This is important. Contact a health care provider if: You have unexplained back pain. Your symptoms do not get better with treatment. You develop side effects from the medicine you are taking. Your urine becomes very dark or has a bad smell. Your lower abdomen becomes distended and you have trouble passing urine. Get help right away if: You have a fever or chills. You suddenly cannot urinate. You feel light-headed or very dizzy, or you faint. There are large amounts of blood or clots in your urine. Your urinary problems become hard to manage. You develop moderate to severe low back or flank pain. The flank is the side of your body between the ribs and the hip. These symptoms may be an emergency. Get help right away. Call 911. Do not wait to see if the symptoms will go away. Do not drive yourself to the hospital. Summary Benign prostatic hyperplasia (BPH) is an enlarged prostate that is caused by the normal aging process. It is not caused by cancer. An enlarged prostate can press on the urethra. This can make it hard to pass urine. This condition is more likely to develop in men older than 50 years. Get help right away if you suddenly cannot urinate. This information is not intended to replace advice given to you by your health care provider. Make sure you discuss any questions you have with your health care provider. Document Revised: 09/27/2021 Document Reviewed: 09/27/2021 Education Everytime Patient Education 2023 [email or web address]. Follow Up Care 12/23/2023 09:57:46 With:HILARIO LOAIZA MD, URL Address: When: Unknown [facility] Clinical Note 12-30-2023 Note Date & Type Note Facility 12-30-2023 Note Patient Education Oncology Prostate Cancer Screening Prostate cancer screening is testing that is done to check for the presence of prostate cancer in men. The prostate gland is a walnut-sized gland that is located below the bladder and in front of the rectum in males. The function of the prostate is to add fluid to semen during ejaculation. Prostate cancer is one of the most common types of cancer in men. Who should have prostate cancer screening? Screening recommendations vary based on age and other risk factors, as well as between the professional organizations who make the recommendations. In general, screening is recommended if: ? You are age 50 to 70 and have an average risk for prostate cancer. You should talk with your health care provider about your need for screening and how often screening should be done. Because most prostate cancers are slow growing and will not cause , screening in this age group is generally reserved for men who have a 10- to 15-year life expectancy. ? You are younger than age 50, and you have these risk factors: ? Having a father, brother, or uncle who has been diagnosed with prostate cancer. The risk is higher if your family member's cancer occurred at an early age or if you have multiple family members with prostate cancer at an early age. ? Being a male who is Black or is of [place] or sub-Saharan descent. In general, screening is not recommended if: ? You are younger than age 40. ? You are between the ages of 40 and 49 and you have no risk factors. ? You are 70 years of age or older. At this age, the risks that screening can cause are greater than the benefits that it may provide. If you are at high risk for prostate cancer, your health care provider may recommend that you have screenings more often or that you start screening at a younger age. How is screening for prostate cancer done? The recommended prostate cancer screening test is a blood test called the prostate-specific antigen (PSA) test. PSA is a protein that is made in the prostate. As you age, your prostate naturally produces more PSA. Abnormally high PSA levels may be caused by: ? Prostate cancer. ? An enlarged prostate that is not caused by cancer (benign prostatic hyperplasia, or BPH). This condition is very common in older men. ? A prostate gland infection (prostatitis) or urinary tract infection. ? Certain medicines such as male hormones (like testosterone) or other medicines that raise testosterone levels. A rectal exam may be done as part of prostate cancer screening to help provide information about the size of your prostate gland. When a rectal exam is performed, it should be done after the PSA level is drawn to avoid any effect on the results. Depending on the PSA results, you may need more tests, such as: ? A physical exam to check the size of your prostate gland, if not done as part of screening. ? Blood and imaging tests. ? A procedure to remove tissue samples from your prostate gland for testing (biopsy). This is the only way to know for certain if you have prostate cancer. What are the benefits of prostate cancer screening? ? Screening can help to identify cancer at an early stage, before symptoms start and when the cancer can be treated more easily. ? There is a small chance that screening may lower your risk of dying from prostate cancer. The chance is small because prostate cancer is a slow-growing cancer, and most men with prostate cancer from a different cause. What are the risks of prostate cancer screening? The main risk of prostate cancer screening is diagnosing and treating prostate cancer that would never have caused any symptoms or problems. This is called overdiagnosisand overtreatment. PSA screening cannot tell you if your PSA is high due to cancer or a different cause. A prostate biopsy is the only procedure to diagnose prostate cancer. Even the results of a biopsy may not tell you if your cancer needs to be treated. Slow-growing prostate cancer may not need any treatment other than monitoring, so diagnosing and treating it may cause unnecessary stress or other side effects. Questions to ask your health care provider ? When should I start prostate cancer screening? ? What is my risk for prostate cancer? ? How often do I need screening? ? What type of screening tests do I need? ? How do I get my test results? ? What do my results mean? ? Do I need treatment? Where to find more information ? The [place] [employer]: www.cancer.org ? [place] [employer]: www.auanet.org Contact a health care provider if: ? You have difficulty urinating. ? You have pain when you urinate or ejaculate. ? You have blood in your urine or semen. ? You have pain in your back or in the area of your prostate. Summary ? Prostate cancer is a common type of cancer in men. The prostate gland is located below the bladder and in front of the rectum. (more content not included)... [facility] Progress note 11-14-2022 Note Date & Type Note Facility 11-14-2022 Note New patient here to establish care. Ref from Dr. Thompson for chest pain and palpitations. Had recent stress test, labs, and wore Holter monitor for 7 days. Says he's getting tired easier. He takes no medications, but is compliant with cpap therapy for BRODIE. Family hx is unknown as patient is adopted. [facility] Progress note 11-14-2022 Note Date & Type Note Facility 11-14-2022 Note Cardiology Clinic No te Chief Complaint: chest pain HPI: Sergio Eason is a 67 y.o. male With no significant past cardiac history who presents to cardiology clinic for chest pain. Patient has been having Intermittent palpitations with episodes of chest discomfort. Patient states that chest discomfort is always preceded by palpitations. Chest discomfort can occur both at rest and with exertion. He denies any associated symptoms aside from the palpitations. No shortness of breath. No lower extremity edema. No orthopnea or paroxysmal nocturnal dyspnea. Patient denies any previous history of CVA, PVD, DM, HTN, Depressed LVEF, and CAD. Of note: Patient had a treadmill stress test with nuclear myocardial perfusion imaging. Reagan treadmill score was 10. He was noted to have a fixed inferior defect, moderate size, moderate intensity Cardiology ROS: GENERAL: Denies fever, chills, night sweats, weight loss. HEENT: Denies changes in vision, photophobia, changes in hearing, epistaxis, oral bleeding. CARDIOVASCULAR: As per HPI RESPIRATORY: Denies SOB, coughing, wheezing GI: Denies abdominal pain, nausea/vomiting, heartburn, melena/hematochezia. RENAL: Denies dysuria, hematuria, flank pain. MSK: Denies muscle weakness/pain, arthralgias/joint pain. NEUROLOGIC: Denies LOC, weakness, numbness, headaches. SKIN: Denies abnormal rashes or bleeding. PSYCH: Denies significant anxiety, depression, sleep disturbances. Past Medical History He has a past medical history of Sleep apnea. Surgical History He has a past surgical history that includes Shoulder surgery and Knee surgery. Social History He reports that he has never smoked. He has never used smokeless tobacco. He reports current alcohol use. No history on file for drug use. Family History Family History Adopted: Yes Medications No current outpatient medications on file prior to visit. No current facility-administered medications on file prior to visit. Allergies Patient has no known allergies. Physical Exam VITAL SIGNS: BP 97/64 (BP Location: Left arm, Patient Position: Sitting) Pulse 59 Ht 1.854 m (6' 1 ) Wt 102 kg (225 lb) SpO2 94% BMI 29.69 kg/m??? Constitutional: Well developed, Well nourished, No acute distress, Non-toxic appearance. HENT: Normocephalic, Atraumatic, Bilateral external ears have normal appearance, Nose appears normal, nares are patent. Eyes: PERRLA, EOMI, Conjunctiva normal, No discharge. Neck: Normal range of motion, No tenderness, Supple, No stridor. No cervical lymphadenopathy noted. Cardiovascular: Normal heart rate, Normal rhythm, No murmurs, No rubs, No gallops. Thorax & Lungs: Normal breath sounds, No respiratory distress, No wheezing, No chest tenderness to palpation. Abdomen: Bowel sounds normal, Soft, Nontender, No masses, No pulsatile masses. Skin: Warm, Dry, No erythema, No rash. Back: No tenderness, No CVA tenderness. Extremities: Intact distal pulses, No edema, No tenderness, No cyanosis, No clubbing. Musculoskeletal: Grossly normal strength in extremities Neurologic: Alert & oriented x 3, no gross focal neurological deficits Psychiatric: Affect normal, Judgment normal, Mood normal. Impression: -Chest pain -Palpitations -Abnormal stress test Plan: -Given intermittent chest pressure, in addition to fixed defect on stress test, discussed options with patient. Discussed pursuing invasive coronary angiography with possible PCI -Procedure was explained to patient at length and in detail. Risks, benefits, and alternatives were discussed. -Patient is informed that risks of this invasive procedure include, but are not limited to, bleeding, hematoma, kidney injury, CVA, arrythmia requiring defibrillation, need for emergent open heart surgery, and . Patient understands these risks and wishes to proceed. -We will obtain echocardiogram to assess LVEF, regional wall motion, and valvular function -Patient to begin taking aspirin 81 mg daily. Discussed initiation of statin and beta-petra. Patient declines at this time -For palpitations, Patient had event monitor completed. Will need to obtain report. If there are no arrhythmias noted, consider obtaining 30-day event monitor for further interrogation -Optimize medical management -Aggressive risk factor modification -Plan of care discussed with patient. All questions were answered. Patient voices understanding and is agreeable with current plan. -Patient was educated on red flag symptoms. Strict return precautions were provided. Patient verbalizes understanding -Follow-up in cardiology clinic After testing is complete Thank you for allowing us to participate in the care of your patient. Please do not hesitate to contact cardiology with any questions or concerns. Cathi Sánchez MD Interventional Cardiology [facility] Evaluation + Plan note Note Date & Type Note Facility Evaluation + Plan note No data available for this section [facility] Evaluation note Note Date & Type Note Facility Evaluation note Diagnosis Screening for malignant neoplasm of colon- Primary documented in this encounter [facility] Progress note Note Date & Type Note Facility Progress note No data available for this section [facility] Summary Purpose Family History No Family History Records FoundNo Family History Records FoundNo Family History Records FoundNo Family History Records Found No data available for this section Advance Directives No Advanced Directives Records FoundNo Advanced Directives Records FoundNo Advanced Directives Records FoundNo Advanced Directives Records Found Additional Source Comments (unrecognized sect ion and content) No Status Records FoundNo Status Records FoundNo Status Records FoundNo Status Records Found INFORMATION SOURCE (unrecogn ized section and content) DATE CREATED AUTHOR 12/29/2021 [facility] DATE CREATED AUTHOR AUTHOR'S ORGANIZ ATION 12/05/2022 [facility] DATE CREATED AUTHOR AUTHOR'S ORGANIZ ATION 12/31/2023 [facility] DATE CREATED AUTHOR AUTHOR'S ORGANIZ ATION 12/31/2023 [facility] EPIC Care Teams (unrecognized sec tion and content) Personnel Name: DMITRY THOMPSON MD Address: Address: [address] [place] [address] Invoicing Specialist Relationship Specialty Start Date End Date Dmitry Thompson MD [address] [place] [address] PCP - General Family Medicine 12/02/23 Invoicing Specialist Relationship Specialty Start Date End Date Dmitry Thompson MD [address] [place] [address] PCP - General Family Medicine 12/02/23 Reason for Visit (unrecogniz ed section and content) Reason Comments Colonoscopy Pt presents today fo r a colonoscopy consult. Pt denies/admits to: admits to having a colonoscopy before. Last colonoscopy wasn about 10 years ago and it was normal. Pt denies abdominal pain. Pt denies rectal bleeding. Pt denies changes in bowel movements. Pt denies a family history of colon cancer that they know of. Pt denies any concern today. FOR RECORDS PERTAINING TO PATIENTS WHO ARE OR HAVE BEEN ENROLLED IN A CHEMICAL DEPENDENCY/SUBSTANCEABUSE PROGRAM, SOME INFORMATION MAY BE OMITTED. This clinical summary was aggregated from multiple sources. Caution should be exercised in using it in the provision of clinical care. This summary normalizes information from multiple sources, and as a consequence, information in this document may materially change the coding, format and clinical context of patient data. In addition, data may be omitted in some cases. CLINICAL DECISIONS SHOULD BE BASED ON THE PRIMARY CLINICAL RECORDS. [employer] provides no warranty or guarantee of the accuracy or completeness of information in this document.
== END 2024-01-17 14:00 | disposition home or self-care (01) ==
LOC: PST 13:59
PROVIDERS: PCP Family Medicine; Visit Provider Surgery
DX: Z01.818 Encounter for other preprocedural examination (principal); Z12.11 Encounter for screening for malignant neoplasm of colon

== ENCOUNTER 2024-01-21 08:49 | Day surgery (SDC) | payer BC, SELFPAY ==
[2024-01-21 08:55] VITALS: BP 137/78; PULSE 57; TEMP 36.1; O2SAT 97; BMI 29.3
--- OUTSIDE RECORDS SUMMARY | 2024-01-21 09:07 | XMS_ITS | CCD ---
Author Organization [facility] Care Team Providers Care Business Project Manager Name Role Phone OREN MARK Admitting Unavailable DR MDITRY THOMPSON Primary Care Unavailable OREN MARK Attending [...] Unavailable Dmitry Thompson MD Primary Care Provider DMITRY THOMPSON Primary Care Physician Allergies Allergy Classification Reported Allergen(s) Allergy Type Date of Onset Reaction(s) Facility (3 sources) Influenza Vaccines Propensity to adverse reactions 4 Other [facility] (1 source) Influenza virus antigen (substance); Translations: [flu vaccines] Drug allergy Eruption of skin (disorder) [facility] Medications Current Medications Medication Drug Class(es) Dates [...] Date: 12/30/23 Status: Ordered polyethylene glycol 3350 45357 mg powder for oral solution (2 sources) [...] dysfunction, # 30 tab(s), Refills(s) 3, Pharmacy: [facility]/pharmacy #[id number], 185, cm, 12/30/23 10:37:00 EDT, Height/Length Dosing, 103, kg, 12/30/23 10:37:00 EDT, Weight Dosing Start Date: 12/30/23 Status: Ordered tamsulosin hydrochloride 0.4 mg oral capsule (1 source) alpha-Adrenergic Petra Start: 12-30-2023 take 1 capsule by mouth once daily tamsulosin 0.4 mg Cap 0.4 mg = 1 cap(s), Oral, Daily, # 30 cap(s), Refills(s) 11, Pharmacy: [facility]/pharmacy #[id number], 185, cm, 12/30/23 10:37:00 EDT, [...] urinary obstruction ED (erectile dysfunction) Elevated PSA [place] syndrome Headache Patient Survey You may receive [...] after th (more content not included)... Normal [facility] Urology Office/Clinic Noteon 12-30-2023 Urology Office/Clinic [...] smoking history. No prior abdominal surgeries. Denies NM or CVA. Pt states he had a heart monitor placed 6 months ago and was told he had an abnormal rhythm but this was never diagnosed. Lipids 12/13/23 wnl. BMP 12/13/23 Cr 0.94, eGFR >60. Portions of this record may have been created with voice recognition artificial intelligence software, specifically [employer], [employer] and or [employer]. Substitutions may have occurred due to the [...] obstruction (N40 (more content not included)... Normal [facility] Comment on above: Result Comment: Elec tronically Signed By: HILARIO LOAIZA MD\.br\Date and Time Signed: 12/30/23 11:00 EDT\.br\Electronically Co-Signed By: Riri Segura.br\Date and Time Co-Signed: 12/30/23 10:51 EDT Letter (Out)on 11-19-2022 Letter (Out) [id number] Sergio Eason 1955 M Date Provider Department Center 11/19/2022 None-None [facility] [place] [facility] Family History Adopted: Yes Normal [facility] Letter (Out)on 11-15-2022 Letter (Out) [id number] Sergio Eason 1955 M Date Provider Department Center 11/15/2022 None-None [facility] Family History Adopted: Yes Normal [facility] Office Visiton 11-14-2022 Follow-up visit [id number] Sergio Eason 1955 M Date Provider Department Center 11/14/2022 Beny8-GENASAM CHAMBERLAINHAMLET AVELINO [facility] Family History Adopted: Yes Level of Service:22952 DE OFFICE/OUTPATIENT NEW MODERATE MDM 45-[address] [facility] Orders Onlyon 11-14-2022 Orders Only [id number] Sergio Eason 1955 M Date Provider Department Center 11/14/2022 895LEONEL PENDLETON AVELINO [facility] Family History Adopted: Yes Normal [facility] ASYMPTOMATIC COVID-19 ANTIGE Non 12-27-2021 EUA Statement SEE BELOW Normal [facility] Comment on above: Result Comment: This test [...] sooner. Performed By: #### C VDAGA #### [facility] [address] [place] [address] Dr. Margarita Arellano SARS-CoV-2 (COVID-19) RNA CINTHYA+probe Ql (Unsp spec) Negative Normal NEGATIVE [facility] Comment on above: Result Comment: Nega tive results are presumptive. They do not preclude infection and should not be used as the sole basis for treatment decisions. Additional confirmatory testing by a molecular method should be considered. Performed By: #### C VDAGA #### [facility] [address] [place], [place] [address] Dr. Margarita Arellano Covid-19 PCR (CVDTB)on 11-24 SARS-CoV-2 (COVID-19) RNA CINTHYA+probe Ql (Unsp spec) Detected Critically abnormal NOT DETECTED [facility] Comment on above: Result Comment: This test is not yet approved or cleared by the [place] FDA. When there are no FDA-approved or cleared tests available, and other criteria are met, FDA can make tests available under an emergency access mechanism called an Emergency Use Authorization (EUA). The EUA for this test is supported by the [place] of Health and Human Service's (HHS's) declaration [...] longer be used). Performed By: #### [facility] #### [facility] [address] [place], [place] [address] Dr. Margarita Arellano Vital Signs Date Time Vital Sign Value Performing Clinician Facility 12-30-2023 13:040 Body height 185.4 cm [employer] Phone: [facility] [employer] 12-30-2023 13:040 Body mass index (BMI) [Ratio] 29.82 kg/m2 [employer] Phone: [facility] [employer] 12-30-2023 13:040 Body weight 102.51 kg [employer] Phone: [facility] [employer] 12-30-2023 13:040 Diastolic blood pressure 68 mm[Hg] [employer] Phone: [facility] [employer] 12-30-2023 13:040 Heart rate 57 /min [employer] Phone: [facility] [employer] 12-30-2023 13:0400 Respiratory rate 12 /min Chhaya Willard DO Work Phone: [facility] 12-30-2023 13:26-0400 SaO2% (BldA) [Mass fraction] 97 % Chhaya Willard DO Work Phone: [facility] 12-30-2023 13:26-0400 Systolic blood pressure 126 mm[Hg] Chhaya Willard DO Work Phone: [facility] 12-30-2023 10:36-0400 Blood Pressure Location HILARIO GRIMALDOANSAH-AMANKRA [facility] 12-30-2023 10:36-0400 Diastolic blood pressure 78 mm[Hg] HILARIO GRIMALDOANSAH-AMANKRA [facility] 12-30-2023 10:36-0400 Heart rate 51 /min HILARIOWHITNEY GRIMALDOANSAH-AMANKRA [facility] 12-30-2023 10:36-0400 Systolic blood pressure 129 mm[Hg] HILARIO GRIMALDOANSAH-AMANKRA [facility] Encounters Encounter Date Encounter Type Care Provider [...] encounter procedure HILARIO LOAIZA [facility] Start: 12-17-2023 ambulatory HILARIO LOAIZA Facility:[facility] Start: 12-02-2023 Patient encounter procedure Chhaya Willard DO Work Phone: [facility] Start: 12-02-2023 End: 12-02-2023 ambulatory DMITRY THOMPSON Not Available Start: 11-14-2022 End: 11-14-2022 [facility] Start: 12-27-2021 End: 12-27-2021 ambulatory OREN JAS Facility:[facility] Start: 12-21-2021 End: 12-21-2021 ambulatory OREN JAS Facility:[facility] Start: 03-31-2021 End: 03-31-2021 ambulatory OREN JAS Facility:[facility] Procedures Date Procedure Procedure Detail Performing Clinician Colonoscopy HILARIO RODRIGUEZ Plan of Treatment Date Care Activity Detail Author Start: 12-07-2024 End: 12-07-2024 Patient encounter procedure 12/07/2024 8:00 AM EDT Office Visit [facility] [address] [place] [id number] Dmitry Thompson MD [address] [place] [phone] [facility] Start: 12-30-2023 End: 12-30-2023 Patient encounter procedure 12/30/2023 1:30 PM EDT Office Visit [facility] [address] [place] [address] Chhaya Willard DO [address] [place] [address] Arrived [facility] Comment on above: Arrived Start: 11-24-2023 Influenza vaccination Influenza Vacc ine (#1) [facility] Start: 2021 Pneumococcal Vaccine : 65+ Years (1 of 1 - PCV) Pneumococcal Vaccine: 65+ Years (1 of 1 - PCV) [facility] Start: 1955 Screening for malign ant neoplasm of colon [facility] Payers Date Payer Category Payer Unknown BCBS BCBS [id number] 2022-Present [phone] [address] [place] [address] [id number] 2022 Unknown [id number] 2019 Unknown [id number] 1955 Unknown [id number] 1955 Unknown [id number] 1955 Unknown [id number] 1955 Unknown [id number] 1955 Unknown [id number] 1955 Unknown [id number] 1955 Unknown [id number] Social History Date Type Detail Facility Start: 12-02-2023 End: 12-30-2023 Tobacco smoking status NHIS Never smoked tobacco [facility] Start: 12-02-2023 Tobacco use and exposure Smokeless tobacco non-user [facility] Start: 12-02-2023 End: 12-30-2023 History of Social function [facility] Start: 12-02-2023 End: 12-30-2023 Tobacco use panel [facility] Start: 1955 Sex assigned at Not on file [facility] Functional Status Date Assessment Result Facility 12-30-2023 Functional Status N/A [facility] History of Present illness Narrative 12-30-2023 Chhaya [...] Herminio Willard DO documented in this encounter [facility] Discharge instructions 12-30-2023 Note Date & Type [...] treatment? Where to find more information The [place] [employer]: www.cancer.org [employer]: www.auanet.org Contact a health care [...] provider. Document Revised: 09/04/2021 Document Reviewed: 09/04/2021 tic Patient Education 2023 [employer]. 12/30/2023 10:47:59 Erectile Dysfunction Erectile Dysfunction Erectile [...] Follow these instructions at home: Medicines Take dxvd-buy-wyercjs and prescription medicines only as told by [...] provider. Document Revised: 06/07/2021 Document Reviewed: 06/07/2021 tic Patient Education 2023 [employer]. 12/30/2023 10:47:57 Benign Prostatic Hyperplasia Benign Prostatic [...] urethra. Follow these instructions at home: Take uevp-qbo-zogrlrq and prescription medicines only as told by [...] provider. Document Revised: 09/27/2021 Document Reviewed: 09/27/2021 tic Patient Education 2023 [employer]. Follow Up Care 12/23/2023 09:57:46 With:HILARIO LOAIZA MD, URL Address: When: Unknown [facility] Clinical Note 12-30-2023 Note Date & Type [...] Where to find more information ? The [place] [employer]: www.cancer.org ? [employer]: www.auanet.org Contact a health care [...] of the rectum. (more content not included)... [facility] Progress note 11-14-2022 Note Date & [...] hx is unknown as patient is adopted. [facility] Progress note 11-14-2022 Note Date & [...] or concerns. Cathi Sánchez MD Interventional Cardiology [facility] Evaluation + Plan note Note Date & Type Note Facility Evaluation + Plan note No data available for this section [facility] Evaluation note Note Date & Type Note Facility Evaluation note Diagnosis Screening for malignant neoplasm of colon- Primary documented in this encounter [facility] Progress note Note Date & Type Note Facility Progress note No data available for this section [facility] Summary Purpose Family History No Family History [...] and content) DATE CREATED AUTHOR 12/29/2021 [facility] DATE CREATED AUTHOR AUTHOR'S ORGANIZ ATION 12/05/2022 [facility] DATE CREATED AUTHOR AUTHOR'S ORGANIZ ATION 12/31/2023 [facility] DATE CREATED AUTHOR AUTHOR'S ORGANIZ ATION 12/31/2023 [facility] [employer] Care Teams (unrecognized sec tion and content) Personnel Name: DMITRY THOMPSON MD Address: Address: [address] [place] [address] Business Project Manager Relationship Specialty Start Date End Date Dmitry Thompson MD [address] [place] [address] PCP - General Family Medicine 12/02/23 Business Project Manager Relationship Specialty Start Date End Date Dmitry Thompson MD [address] [place] [address] PCP - General Family Medicine [...] BE BASED ON THE PRIMARY CLINICAL RECORDS. [employer] provides no warranty or guarantee of the accuracy or completeness of information in this document.
[2024-01-21] MEDS: 0.9 % SODIUM CHLORIDE 500 ML 50 ML IV (09:15)
--- NOTE | 2024-01-21 09:43 | W.PM.PROCNOT ---
Date of procedure: 01/21/24 Pre-op diagnosis: screening c-scope Post-op diagnosis: other (sigmoid diverticulosis ) Procedure: Previous colonoscopy: 2013 procedure: screening colonoscopy The patient was given IV conscious sedation.? The patient's SPO2 remained above 90% throughout the procedure. The colonoscope was inserted per rectum and advanced under direct vision to the cecum without difficulty.? The prep was good.? Findings: Terminal ileum os: normal Cecum/Ascending colon: normal Transverse colon: normal Descending/Sigmoid colon: normal aside for mild diverticulosis Rectum/Anus: examined in normal and retroflexed positions and was normal Withdrawal Time was (minutes): 10 The colon was decompressed and the scope was removed.? The patient tolerated the procedure well. Recommendations/Plan: 1.? Lifestyle and dietary modifications as discussed 2.? F/U in 10 years for repeat c-scope 3.? Discussed with the family Anesthesia: MAC Surgeon: Ronak Willard Estimated blood loss (mL): 0 Pathology: none sent Condition: stable Disposition: PACU
[2024-01-21 10:28] VITALS: BP 127/77; PULSE 61; TEMP 36.3; O2SAT 97
[2024-01-21 10:43] VITALS: BP 110/69; PULSE 57; O2SAT 997
[2024-01-21 10:58] VITALS: BP 119/75; PULSE 51; TEMP 36.5; O2SAT 96
== END 2024-01-21 11:00 | disposition home or self-care (01) ==
PROVIDERS: PCP Family Medicine; Visit Provider Surgery
PROC: (CPT 00812; principal; 2024-01-21 10:00)
DX: Z12.11 Encounter for screening for malignant neoplasm of colon (principal); K57.30 Diverticulosis of large intestine without perforation or abscess without bleeding; N40.0 Benign prostatic hyperplasia without lower urinary tract symptoms; E80.4 Gilbert syndrome
CPT/HCPCS: 00812; 45378; J2704

== ENCOUNTER 2024-09-24 11:08 | Outpatient (OUT) | payer BC, SELFPAY ==
[2024-09-25 04:07] LABS: PSA, Free 0.69 ng/mL
== END 2024-09-24 11:09 | disposition home or self-care (01) ==
LOC: LAB 11:12
PROVIDERS: PCP Family Medicine
DX: R97.20 Elevated prostate specific antigen [PSA] (principal)
CPT/HCPCS: 36415; 84153; 84154

== ENCOUNTER 2025-01-27 07:01 | Outpatient (OUT) | payer BC, SELFPAY ==
--- OUTSIDE RECORDS SUMMARY | 2025-01-27 07:05 | XMS_ITS | CCD ---
Author Organization [facility] Care Team Providers Care Filler Sifter Helper Name Role Phone OREN MARK Admitting Unavailable DR DMITRY THOMPSON Primary Care Unavailable JASOREN HAWKINS Attending Unavailable JAS, OREN Consulting Unavailable DR DMITRY THOMPSON Primary Care Unavailable JAS, OREN Admitting Unavailable JAS, OREN Attending Unavailable JAS, OREN Admitting Unavailable DONNA, DR DMITRY Abreu Primary Care Unavailable JAS, OREN Attending Unavailable JAS, OREN Consulting Unavailable CATHI SÁNCHEZ Attending Unavailable DMITRY THOMPSON Attending Unavailable CHHAYA WILLARD Attending Unavailable Dmitry Thompson MD Primary Care Provider [phone] DMITRY THOMPSON Primary Care Physician Hilario Loaiza MD Attending Provider Dmitry Thompson MD Primary Care Provider [phone] JOSSE HILARIO Attending Unavail able NKANSAH-AMMARBELLA SHAYNA Attending Unavail able NKGLENN-PER HILARIO Referring Unavail able NKANSAH-AMANKRA, HILARIO Attending Unavail able NKANSAH-AMANKRA, HILARIO Admitting Unavail able NKANSAH-AMANKRA, HILARIO Referring Unavail able HILARIO LOAIZA Attending Unavail able MD HILARIO LOAIZA Admitting Unav ailable MD HILARIO LOAIZA Attending Unav ailable MD HILARIO LOAIZA Attending Unav ailable MD HILARIO LOAIZA Attending Unav ailable MD HILARIO LOAIZA Admitting Unav ailable MD HILARIO LOAIZA Attending Unav ailable MD HILARIO LOAIZA Referring Unav ailable Dmitry Thompson MD Primary Care Provider Dmitry Thompson MD Attending Provider Dmitry Thompson MD Referring Provider Yuri Adamson MD Attending Provider Yuri Adamson MD Other Provider [phone] Yuri Adamson Admitting Unavai lable Juan Diego, Yuri Ferreira Attending Unavai Dmitry Sharpe Primary Care Unavailable Dmitry Thompson Primary Care Unavailable Nkansah-Amankra, Hilario Admitting Unavail able Nkansdorita-Amank, Hilario Attending Unavail able Dmitry Thompson Primary Care Unavailable Lucilaomdouglas, Yuri Ferreira Admitting Unavai lable Koromia, Yuri Ferreira Attending Unavai lable NKANSAH-AMANKRA, HILARIO Admitting Unavail able NKANSAH-AMANKRA, HILARIO Attending Unavail able NKANSAH-AMANKRA, HILARIO Attending Unavail able Allergies Allergy ClassificationReported Allergen(s)Allergy TypeDate of OnsetReaction(s) Facility (8 sources)Influenza VaccinesPropensity to adverse fpobahxiy06-79-4965VxrprZYSF Healthcare (10 sources)Influenza virus antigen (substance); Translations: [flu vaccines] Drug allergyEruption of skin (disorder)[facility] (1 source)Influenza Virus VaccinesDrug allergy (disorder)60-36-5059WfeltiqgdProm[facility] Medications Current Medications MedicationDrug Class(es)DatesSig (Normalized)Sig (Original)Ascorbic Acid (7 sources)Vitamin CStart: 16-72-6966Icfgipm C Daily, Refills(s) 0 Start Date: 12/30/23 Status: Ordered Repeat number: 1Start: 53-94-6635Jtysdzq C Daily, Refills(s) 0 Start Date: 12/30/23 Status: Orderedaspirin 81 mg oral capsule (7 sources)Platelet Aggregation Inhibitor, Nonsteroidal Anti-inflammatory Drug Start: 94-54-7300ufsv 1 mg by mouth every twenty-four hoursaspirin 81 mg oral capsule mg cap(s), Oral, q24hr, Refills(s) 0 Start Date: 12/30/23 Status: Ordered Repeat number: 1bisacodyl 5 mg delayed release oral tablet (2 sources)Stimulant LaxativeStart: 12-30-2023 End: 39-29-3891fjms 1 tablet by mouth oncebisacodyl (Dulcolax) 5 MG EC tablet Indications: Screening for malignant neoplasm of colon Take 1 tablet (5 mg) by mouth 1 time for 1 dose Do not crush, chew, or split. Take as detailed on clinic hand out for colonoscopy prep 1 tablet 12/30/2023 12/30/2023 ActivediazePAM 10 mg oral tablet (1 source)BenzodiazepineStart: 56-44-4652Ewgqyx 10 mg Tab 10 mg = 1 tab(s), Oral, Once, Take 30 min prior to procedure., # 1 tab(s), Refills(s) 0, [facility]acy: [id number], 178, cm, 02/24/24 11:23:00 EST, Height/Length Dosing, 103, kg, 02/24/24 11:23:00 EST, Weight Dosing Start Date: 04/14/24 Status: OrderedFish Oils (7 sources)Start: 81-20-2065Olud Oil Oral, Refill(s) 0 Start Date: 12/30/23 Status: Ordered Repeat number: 1Start: 95-52-1437Mnbl Oil Oral, Refill(s) 0 Start Date: 12/30/23 Status: OrderedIbuprofen (7 sources)Nonsteroidal Anti-inflammatory DrugStart: 69-75-8790aijofrjgx Refills(s) 0 Start Date: 12/30/23 Status: Ordered Repeat number: 1Start: 46-55-9626jfpjtsebp Refills(s) 0 Start Date: 12/30/23 Status: Orderedpolyethylene glycol 3350 13224 mg powder for oral solution (2 sources)Osmotic LaxativeStart: 12-30-2023 End: 82-63-5817iyax 17 g by mouth oncepolyethylene glycol, PEG, 3350 (Glycolax) 17 GM/SCOOP powder Indications: Colonoscopy Take 238 g bymouth 1 (one) time for 1 dose Take as detailed from clinic hand out for colonoscopy prep 238 g 12/2912/30/2023 Activetadalafil 10 mg oral tablet (7 sources)Phosphodiesterase 5 InhibitorStart: 13-84-9501Uyrszt 10 mg Tab 10 mg = 1 tab(s), Oral, As Directed, PRN for erectile dysfunction, # 30 tab(s), Ref ills(s) 3, Pharmacy: [facility]/pharmacy #[id number], 185, cm, 12/30/23 10:37:00 EDT, Height/Length Dosing, 103,kg, 12/30/23 10:37:00 EDT, Weight Dosing Start Date: 12/30/23 Status: Ordered Quantity: 30.0 Unit: tab(s) Repeat number: 4tamsulosin hydrochloride 0.4 mg oral capsule (1 source)alpha-Adrenergic BlockerStart: 80-14-5593gpgp 1 capsule by mouth once dailytamsulosin 0.4 mg Cap 0.4 mg = 1 cap(s), Oral, Daily, # 30 cap(s), Refills(s) 11, Pharmacy: [facility]/pharmacy #[id number], 185, cm, 12/30/23 10:37:00 EDT, Height/Length Dosing, 103, kg, 12/30/23 10:37:00 EDT, Weight Dosing Start Date: 12/30/23 Status: OrderedVitamin D (7 sources)Start: 44-85-1561Ezlrhqh D International_Unit, Oral, qWeek, Refills(s) 0 Start Date: 12/30/23 Status: Ordered Repeat number: 1Start: 97-95-7849Ndostke D International_Unit, Oral, qWeek, Refills(s) 0 Start Date: 12/30/23 Status: Ordered Completed/Discontinued Medications MedicationDrug Class(es)DatesSig (Normalized)Sig (Original)amLODIPine 2.5 mg oral tablet (3 sources)Dihydropyridine Calcium Channel BlockerStart: 01-11-2025 End: 51-88-9095julr 1 tablet by mouth once dailyAmlodipine 2.5 mg tablet Discontinued 2.5 MG PO Daily January 11, 2025 12:00am January 22, 2025 3:27pmciprofloxacin 500 mg oral tablet (7 sources)Quinolone AntimicrobialStart: 12-03-2024 End: 80-62-2717kikv 1 tablet by mouth twice dailyCiprofloxacin Hcl 500 mg tablet Discontinued 500 MG PO Twice daily December 03, 2024 12:00am January 11, 2025 1:32pmStart: 09-02-2024 End: 88-17-5056mknz 1 tablet by mouth in the morningciprofloxacin (Cipro) 500 MG tablet Indications: Prostatitis, unspecified prostatitis type Take 1 tablet (500 mg) by mouth in the morning and 1 tablet (500 mg) before bedtime. 60 tablet 09/02/2024 10/02/2024 ActiveStart: 61-14-5662skks 1 tablet by mouth twice daily Cipro 500 mg Tab 500 mg = 1 tab(s), Oral, BID, Start 1 day prior to procedure., # 6 tab(s), Refills(s) 0, Pharmacy: [id number], 178, cm, 02/24/24 11:23:00 EST, Height/Length Dosing, 103, kg, 02/24/24 11:23:00 EST, Weight Dosing Start Date: 04/14/24 Status: OrderedStart: 51-75-2987owzf 1 tablet by mouth twice dailyCipro 500 mg Tab 500 mg = 1 tab(s), Oral, BID, Start 1 day prior to procedure., # 6 tab(s), Refills(s) 0, Pharmacy: [facility]/pharmacy #[id number], 178, cm, 02/24/24 11:23:00 EST, Height/Length Dosing, 103, kg, 02/24/24 11:23:00 EST, Weight Dosing Start Date: 02/24/24 Status: Orderedhydroxychloroquine sulfate 200 mg oral tablet (14 sources)Antimalarial, Antirheumatic AgentStart: 12-03-2024 End: 77-25-2172fsvz 1 tablet by mouth every weekHydroxychloroquine 200 mg tablet Discontinued 200 MG PO every week December 03, 2024 12:00am January 11, 2025 1:32pmStart: 12-75-0009xfsagcahivcgeynxsj Oral, Refills(s) 0 Start Date: 12/30/23 Status: Ordered Repeat number: 1Start: 95-95-4335riwyncjozxupkuiisr Oral, Refills(s) 0 Start Date: 12/30/23 Status: Orderedtake 1 tablet by mouth every weekhydroxychloroquine (Plaquenil) 200 MG tablet Take 200 mg by mouth 1 (one) time per week Bafifl79 hr metoprolol succinate 25 mg extended release oral tablet (3 sources)beta-Adrenergic BlockerStart: 01-11-2025 End: 70-32-0286xchk 1 tablet by mouth once dailyMetoprolol Succinate 25 mg tablet extended release 24 hr Discontinued 25 MG PO Daily January 11, 2025 12:00am January 22, 2025 3:27pm Problems Active Problems Problem ClassificationProblemDateDocumented DateEpisodic/ChronicCardiac dysrhythmias (7 sources)Atrial saduqteaihrn73-90-7839OsworfrAadlczyh atherosclerosis and other heart disease (1 source)Atypical angina; Translations: [Atypical angina]52-96-5656Pqirtpz Genitourinary symptoms and ill-defined conditions (5 sources)Microscopic hematuria; Translations: [Other microscopic hematuria] Onset: 82-44-3344XkqpgduoQkxbavcn; including migraine (7 sources)Qpbtcvwz17-37-3315PbcjdtwjOapauexdswm of prostate (20 sources)Benign prostatic hyperplasia; Translations: [Benign prostatic hyperplasia with lower urinary tract symptoms]Onset: 646471-17-7826Gugceah Nonspecific chest pain (20 sources)Central chest pain; Translations: [Chest pain, unspecified]Onset: 12-02-2023 Resolved: 514048-11-0339VcymuccuNznme male genital disorders (12 sources)Male erectile dysfunction, unspecified; Translations: [Erectile dysfunction]Onset: 95-04-8986MxvyzxzOemoc nutritional; endocrine; and metabolic disorders (20 sources)Gilbert's syndrome; Translations: [Gilbert syndrome]Onset: 308229-40-3728GfkyyjvZdcdg upper respiratory disease (9 sources)Allergic rhinitis; Translations: [Allergic rhinitis, unspecified] Onset: 459915-66-9916IathtajSugwv upper respiratory disease (4 sources)Allergic rhinitis due to pollen; Translations: [Allergic rhinitis due to pollen]73-79-0496XzyscinCwaytjqzq; thrombophlebitis and thromboembolism (13 sources)Thrombophlebitis of superficial veins of lower extremity; Translations: [Phlebitis and thrombophlebitis of superficial vessels of left lower extremity]Onset: 498264-03-1720MfnxogleXzvraexj codes; unclassified (14 sources)Obstructive sleep apnea syndrome; Translations: [Obstructive sleep apnea (adult) (pediatric)]Onset: 763122-05-9308HsedvqsCyzhnruxgius (3 sources)CONTACT W/AND (SUSP) EXPOS COVID-19; Translations: [CONTACT W/AND (SUSP) EXPOS COVID-19]Onset: 74-51-9764Nzjgvhecjnwy (4 sources)R07.9 - Chest pain, unspecifiedUnclassified (3 sources)R07.9 - Chest pain, unspecified,R94.39 - Abnormal result of other cardiovascular function studyVaricose veins of lower extremity (13 sources)Varicose veins of lower extremity; Translations: [Varicose veins of bilateral lower extremities with pain]Onset: 585859-66-9083BqpxvdfyZenrz infection (1 source)COVID-19; Translations: [COVID-19]Onset: 12-23-2021 Past or Other Problems Problem ClassificationProblemDateDocumented DateEpisodic/ChronicOther screening for suspected conditions (not mental disorders or infectious disease) (20 sources)Raised prostate specific antigen; Translations: [Elevated prostate specific antigen [PSA]]Onset: 012041-29-5147HpobfwmmOytojsevpvsd (1 source)CONTACT W/AND (SUSP) EXPOS COVID-19; Translations: [CONTACT W/AND (SUSP) EXPOS COVID-19]Onset: 12-27-2021 Results Test NameValueInterpretationReference RangeFacilityBlood Urea Nitrogenon 09-73-2951Wkka nitrogen [Mass/Vol]12 mg/dLNormal [facility] Physician GroupComment on above:Performed By: #### CBC, LYTES, PP, BUN, CREAT, LIPID #### [place] [address] USACoagulation Profileon 55-75-3085eLEX Coag (Bld) [Time]29.8 vUbkrhz90.1-36.5The [facility] Physician GroupComment on above:Result Comment: A hematocrit value greater than 55% may lead to inaccurate results in coagulation testing. Patients having hematocrit values >55% require a special collection tube for coagulation studies. Please contact the laboratory at [phone] for redraw instructions. PERFORMED BY: [place] [address] PATHOLOGIST ROOF PLUMBER BROOKE GRAVES M.D.Performed By: #### CBC, LYTES, PP, BUN, CREAT, LIPID #### [place] [address] USAINR Coag (PPP) [Relative time]1.1 {INR}NormalThe [facility] Physician GroupComment on above:Result Comment: INR Therapeutic Range A) Pre- and Peroperative OAT started two weeks before surgery. NOT HIP SURGERY: 1.5 - 2.5 HIP SURGERY: 2 - 3 B) Primary and secondary prevention of venous THROMBOSIS: 2 - 3 C) Active venous thrombosis, pulmonary embolism and prevention of recurrent venous thrombosis: 2 - 3 D) Prevention of arterial thromboembolism including patients with mechanical heart valves: 3 - 4.5Performed By: #### CBC, LYTES, PP, BUN, CREAT, LIPID #### [place] [id number] USAPT Coag (PPP) [Time]12.0 sNormal9.0-12.9The [facility] Physician GroupComment on above:Result Comment: A hematocrit value greater than 55% may lead to inaccurate results in coagulation testing. Patients having hematocrit values >55% require a special collection tube for coagulation studies. Please contact the laboratory at [phone] for redraw instructions.Performed By: #### CBC, LYTES, PP, BUN, CREAT, LIPID #### [place] [address] USAComplete Blood Count Auto Diffon 85-96-4467Cocyulopw (Bld) [#/Vol]0.0 10*3/uLNormal0.0-0.2The [facility] Physician GroupComment on above: Result Comment: PERFORMED BY: [place] [address] PATHOLOGIST ROOF PLUMBER BROOKE GRAVES M.D.Performed By: #### CBC, LYTES, PP, BUN, CREAT, LIPID #### [place] [address] USABasophils/100 WBC (Bld)0.7 %Normal.The [facility] Physician GroupComment on above:Performed By: #### CBC, LYTES, PP, BUN, CREAT, LIPID #### [place] [address] USAEosinophils (Bld) [#/Vol]0.1 10*3/uLNormal0.0-0.45The [facility] Physician GroupComment on above:Performed By: #### CBC, LYTES, PP, BUN, CREAT, LIPID #### [place] [address] USAEosinophils/100 WBC (Bld)2.2 %Normal.The [facility] Physician GroupComment on above:Performed By: #### CBC, LYTES, PP, BUN, CREAT, LIPID #### [place] [address] USAErythrocyte distribution width (RBC) [Ratio]12.8 %Normal 12.0-14.8The [facility] Physician GroupComment on above:Performed By: #### CBC, LYTES, PP, BUN, CREAT, LIPID #### [place] [address] USAHematocrit (Bld) [Volume fraction]44.0 %Bpdlio24.8-50.0The [facility] Physician GroupComment on above:Performed By: #### CBC, LYTES, PP, BUN, CREAT, LIPID #### [place] [address] USAHemoglobin (Bld) [Mass/Vol]15.5 g/qBZeqdms39.0-17.0The [facility] Physician GroupComment on above:Performed By: #### CBC, LYTES, PP, BUN, CREAT, LIPID #### [place] [address] USALymphocytes (Bld) [#/Vol]1.0 10*3/uLNormal1.00-4.8The [facility] Physician GroupComment on above:Performed By: #### CBC, LYTES, PP, BUN, CREAT, LIPID #### [place] [address] USALymphocytes/100 WBC (Bld)15.7 %Normal.The [facility] Physician GroupComment on above:Performed By: #### CBC, LYTES, PP, BUN, CREAT, LIPID #### [address] (RBC) [Entitic mass]32.2 cwUehbua99.5-35.2The [facility] Physician GroupComment on above:Performed By: #### CBC, LYTES, PP, BUN, CREAT, LIPID #### [address] (RBC) [Entitic vol]91.7 sOEuqqqu62.5-101The [facility] Physician GroupComment on above:Performed By: #### CBC, LYTES, PP, BUN, CREAT, LIPID #### [place] [address] USAMean Corpuscular HGB Conc35.2 g/mBOgpxeq75.5-35.6The [facility] Physician GroupComment on above:Performed By: #### CBC, LYTES, PP, BUN, CREAT, LIPID #### [place] [address] USAMonocytes (Bld) [#/Vol]0.5 10*3/uLNormal0.0-0.8The [facility] Physician GroupComment on above:Performed By: #### CBC, LYTES, PP, BUN, CREAT, LIPID #### [place] [address] USAMonocytes/100 WBC (Bld)7.3 %Normal.The [facility] Physician GroupComment on above:Performed By: #### CBC, LYTES, PP, BUN, CREAT, LIPID #### [place] [address] USANeutrophils (Bld) [#/Vol]4.9 10*3/uLNormal1.8-7.7The [facility] Physician GroupComment on above:Performed By: #### CBC, LYTES, PP, BUN, CREAT, LIPID #### [place] [address] USANeutrophils/100 WBC (Bld)74.1 %Normal.The [facility] Physician GroupComment on above:Performed By: #### CBC, LYTES, PP, BUN, CREAT, LIPID #### [place] [address] USANRBC%0.1 /100{WBC}Normal0-0.5The [facility] Comment on above:Performed By: #### CBC, LYTES, PP, BUN, CREAT, LIPID #### [place] [address] USAPlatelet mean volume (Bld) [Entitic vol]9.3 fLNormal 6.6-10.1The [facility] Physician GroupComment on above:Performed By: #### CBC, LYTES, PP, BUN, CREAT, LIPID #### [place] [address] USAPlatelets (Bld) [#/Vol]150 10*3/sMAtvasz774-473Rox [facility] Physician GroupComment on above:Performed By: #### CBC, LYTES, PP, BUN, CREAT, LIPID #### [place] [address] USARBC (Bld) [#/Vol]4.80 10*6/uLNormal3.90-5.60The [facility] Physician GroupComment on above:Performed By: #### CBC, LYTES, PP, BUN, CREAT, LIPID #### [place] [address] USAWBC (Bld) [#/Vol]6.6 10*3/uLNormal4.1-10.5The [facility] Physician GroupComment on above:Performed By: #### CBC, LYTES, PP, BUN, CREAT, LIPID #### [facility] [address] [place] [address] USAWhite Blood Count6.6 [CFU]/mLNormal4.1-10.5The [facility] Physician GroupComment on above:Performed By: #### CBC, LYTES, PP, BUN, CREAT, LIPID #### [facility] [address] [place] [address] USACreatinineon 01-18-0127Ghzyxxrcrg [Mass/Vol]0.96 mg/dL Normal0.70-1.30The [facility] Physician GroupComment on above:Performed By: #### CBC, LYTES, PP, BUN, CREAT, LIPID #### [facility] [address] [place] [address] USACreatinine Clr Calc Fipubxpy66.16NormalThe [facility] Physician GroupComment on above:Performed By: #### CBC, LYTES, PP, BUN, CREAT, LIPID #### [facility] [address] [place] [address] USAGFR/1.73 sq M.predicted MDRD (S/P/Bld) [Vol rate/Area] mL/min/{1.73_m2}NormalThe [facility] Physician [facility] CenterComment on above:Performed By: #### CBC, LYTES, PP, BUN, CREAT, LIPID #### [facility] [address] [place] [address] USAECG 12 lead ECGon 74-10-2018GJG 12 lead ECGUNIVERSITY H[facility]ALS [facility] Main [place] [address] [place] [address] Electrocardiograph Report Signed Patient: Carmen Eason MR#: [id number] : 1955 Acct:[id number] Age/Sex: 69 / M ADM Date: 01/22/25 Loc: Room: Type: [facility] Attending Dr: Yuri Adamson MD Ordering Provider: Yuri Adamson MD Date of Service: 01/22/25 ECG/ECG 12 lead ECG: cardiac cath Copies to: Test Reason : Blood Pressure : */* mmHG Vent. Rate : 57 BPM Atrial Rate : 57 BPM P-R Int : 194 ms QRS Dur : 94 ms QT Int : 456 ms P-R-T Axes : 76 -54 44 degrees QTcB Int : 443 ms Sinus bradycardia Left anterior fascicular block Abnormal ECG When compared with ECG of 11-Jan-2025 13:42, No significant change was found Confirmed by Yuri Adamson ([id number]) on 01/22/2025 5:02:25 PM Referred By: Electronically Signed By: Yuri Adamson Transcribed By: MUS Signed By Yuri Adamson MD 01/22/[address] [place] [address] Physician GroupElectrolyteson 98-74-2576Dsstq gap [Moles/Vol]7.5 mmol/LNormal6.0-15.0The [facility] Physician GroupComment on above:Performed By: #### CBC, LYTES, PP, BUN, CREAT, LIPID #### [facility] [address] [place] [address] USAChloride [Moles/Vol]108 mmol/LIfuh23-683Nfi [facility] Physician GroupComment on above:Performed By: #### CBC, LYTES, PP, BUN, CREAT, LIPID #### [facility] [address] [place] [address] USACO2 [Moles/Vol]28.4 mmol/VKuqddu88.0-31.0The [facility] Physician GroupComment on above:Performed By: #### CBC, LYTES, PP, BUN, CREAT, LIPID #### [facility] [address] [place] [address] USAPotassium [Moles/Vol]3.9 mmol/LNormal3.5-5.1The [facility] Physician GroupComment on above:Performed By: #### CBC, LYTES, PP, BUN, CREAT, LIPID #### [facility] [address] [place] [address] USASodium [Moles/Vol]140 mmol/SJoafid221-090Flj [facility] Physician GroupComment on above:Performed By: #### CBC, LYTES, PP, BUN, CREAT, LIPID #### [facility] [address] [place] [address] USALipid Panelon 79-03-7973Ywziijxmugu [Mass/Vol]141 mg/dL Huzquq977-530Xlq [facility] Physician GroupComment on above:Result Comment: Chol less than 200 mg/dl low risk Chol 201-239 mg/dl borderline risk Chol 240 mg/dl and greater high riskPerformed By: #### CBC, LYTES, PP, BUN, CREAT, LIPID #### [facility] [address] [place] [address] USACholesterol in HDL [Mass/Vol]50 mg/aOEqgqcv40-72Eue [facility] Physician GroupComment on above:Result Comment: HDL CHOL ATP-III CLASSIFICATION Cardiovascular Risk HDL > or equal to 60 mg/dL LOW HDL < 40 mg/dL HIGHPerformed By: #### CBC, LYTES, PP, BUN, CREAT, LIPID #### [place] [id number] USACholesterol.total/Cholesterol in HDL [Mass ratio]2.8 {ratio}Normal<5.0The [facility] Physician [facility] CenterComment on above:Result Comment: PERFORMED BY: [place] [address] PATHOLOGIST ROOF PLUMBER BROOKE GRAVES M.D.Performed By: #### CBC, LYTES, PP, BUN, CREAT, LIPID #### [facility] [address] [place] [id number] USALDL Cholesterol,Rpvntakjul16 mg/dLNormal0-100The [facility] Physician GroupComment on above:Result Comment: LDL ATP III CLASSIFICATION LDL less than 100 mg/dL Optimal LDL 100-129 mg/dL Near or above optimal LDL 130-159 mg/dL Borderline high LDL 160-189 mg/dL High LDL greater than 189 mg/dL Very highPerformed By: #### CBC, LYTES, PP, BUN, CREAT, LIPID #### [facility] [address] [place] [address] USATriglyceride w/Rerkwj83 mg/dLNormal0-149The [facility] Physician GroupComment on above:Result Comment: TRIG ATP III CLASSIFICATION TRIG less than 150 mg/dL Normal TRIG 150-199 mg/dL Borderline high TRIG 200-500 mg/dL High TRIG greater than 500 mg/dL Very high Standard traceable to the Center for Disease Conrtrol and Prevention (CDC) test method.Performed By: #### CBC, LYTES, PP, BUN, CREAT, LIPID #### [facility] [address] [place] [address] USAVLDL CHOLESTEROL9 mg/dLAdventHealth [facility] Comment on above:Performed By: #### CBC, LYTES, PP, BUN, CREAT, LIPID #### [facility] [address] [place] [address] USAFPG ECG *CARDIOLOGY ONLY*on 25-18-1947EIO ECG *CARDIOLOGY ONLY*[facility] Main [place] [address] [place], [place] [id number] Electrocardiograph Report Signed Patient: Carmen Eason MR#: [id number] : 1955 Acct:[id number] Age/Sex: 69 / M ADM Date: 01/11/25 Loc: [facility] Room: Type: [facility] Attending Dr: Yuri Adamson MD Ordering Provider: Yuri Adamson MD Date of Service: 01/11/25 ECG/FPG ECG *CARDIOLOGY ONLY*: R07.9 - Chest pain, unspecified Copies to: Test Reason : Blood Pressure : */* mmHG Vent. Rate : 54 BPM Atrial Rate : 54 BPM P-R Int : 188 ms QRS Dur : 100 ms QT Int : 450 ms P-R-T Axes : 81 -55 58 degrees QTcB Int : 426 ms Sinus bradycardia Left anterior fascicular block Nonspecific T wave abnormality Abnormal ECG No previous ECGs available Confirmed by Yuri Adamson ([id number]) on 01/12/2025 3:38:43 PM Referred By: Electronically Signed By: Yuri Adamson Transcribed By: MUS Signed By Yuri Adamson MD 01/12/25 1538NoHigh[facility] Physician GroupAmbulatory Visit Summaryon [id number] Visit SummaryAmbulatory Visit Summary CARMEN EASON :1955 Visit Date:10/26/2024 Ambulatory Visit Instructions Your Diagnosis Elevated PSA BPH with urinary obstruction Microscopic hematuria ED (erectile dysfunction) Your Care Team Attending Physician - JOSSE SINGH, HILARIO Primary Care Physician - DMITRY THOMPSON MD This Is Your Medications List tadalafil (Cialis 10 mg Tab) Contact prescribing physician if questions or concerns ascorbic acid (Vitamin C) aspirin (aspirin 81 mg oral capsule) ergocalciferol (Vitamin D) hydroxychloroquine ibuprofen omega-3 polyunsaturated fatty acids (Fish Oil) Procedures Performed Colonoscopy. Discharge Vitals Temperature (Axillary) 37 ???C Heart Rate (Peripheral) 48 Respiratory Rate 16 Blood Pressure 130/68 Height 170 cm Height 67 in Weight 103.2 kg Weight 227.517 lb BMI 35.71 What to do next You Need to Schedule the Following Appointments Follow Up with JOSSE SINGH, DIONISIO RICH When: Where: Medications What How Much When Instructions Unchanged tadalafil (Cialis 10 mg Tab) 1 Tablets By Mouth As Directed as needed for for erectile dysfunction Unchanged ascorbic acid (Vitamin C) Every day Contact prescribing physician if questions or concerns Unchanged aspirin (aspirin 81 mg oral capsule) By Mouth Every 24 hours Contact prescribing physician if questions or concerns Unchanged ergocalciferol (Vitamin D) By Mouth Every week Contact prescribing physician if questionsor concerns Unchanged hydroxychloroquine By Mouth Contact prescribing physician if questions or concerns Unchanged ibuprofen Contact prescribing physician if questions or concerns Unchanged omega-3 polyunsaturated fatty acids (Fish Oil) By Mouth Contact prescribing physician if questions or concerns Allergies flu vaccines (Rash) Problems Ongoing - Any problem that you are currently receiving treatment for. Atrial fibrillation BPH with urinary obstruction ED (erectile dysfunction) Elevated PSA [place] syndrome Headache Microscopic hematuria Patient Survey You may receive a survey [...] below the bladder and in front of therectum in males. The function of the prostate is to add fluid to semen during ejaculation. Prostatecancer is one of the most common types of cancer in men. Who should have prostate cancer screening? Screening recommendations vary based on age and other risk factors, as well as between the professional organizations who make the recommendations. In general, screening is recommended if: ??? You are age 50 to 70 and have an average risk for prostate cancer. You should talk with your healthcare provider about your need for screening and how often screening should be done. Because most prostate cancers are slow growing and will not cause , screening in this age group is generally reserved for men who have a 10- to 15-year life expectancy. ??? You are younger than age 50, and [...] In general, screening is not recommended if: ??? You are younger than age 40. ??? You are between the ages of 40 and 49 and you have no risk factors. ??? You are 70 years of age or [...] is a blood test called the prostate-specific antigen(PSA) test. PSA is a protein that is made in the prostate. As you age, your prostate naturally produces more PSA. Abnormally high PSA levels may be caused by: ??? Prostate cancer. ??? An enlarged prostate that is not caused by cancer (benign prostatic hyperplasia, or BPH). This condition is very common in older men. ??? A prostate gland infection (prostatitis) or urinary tract infection. ??? Certain medicines such as male hormones (like testosterone) or other medicines that raise testosterone levels. A rectal exam may be done as part of prostate cancer screen (more content not included)...[facility] HospitalUrology Office/Clinic Noteon [id number] Office/Clinic NoteUrology Office/Clinic Note Chief Complaint 1 mth review of Select MDX HPI Staff 69 yr old male here for 1 mth review w/ select MDX History of Present Illness Tests reviewed: reviewed microscopy and select MDX. I have reviewed the previous health record information and history for this patient from Dr. Curiel I have reviewed and verified the staff HPI to be accurate for this encounter. Review of Systems PHQ Score Initial [...] See HPI. Physical Exam Vitals & Measurements T: 37 ???C(Axillary) HR: 48(Peripheral) RR: 16 BP: 130/68 HT: 67 in HT: 170 cm WT: 227.517 lb WT: 103.2 kg BMI: 35.71 General Appearance: alert, no distress, well nourished, well developed male. Assessment/Plan 69 yo M initially referred by Dr. Thompson for elevated PSA here to review select MDX results. Hx of Gilbert's Disease. Anesthesia complication ~vomiting. Denies diabetes or HTN. No former smoking history. No prior abdominal surgeries. Denies VT or CVA. Pt states he had a heart monitor placed >6 months ago and was told he had an abnormal rhythm but this was never diagnosed. Portions of this record may have been created with voice recognition artificial intelligence software, specifically [employer], [employer] and or [employer]. Substitutions may have occurred due to the inherent limitations of voice recognition and artificial intelligence software. 1. Elevated PSA (R97.20: Elevated prostate specific antigen [PSA]) PSA 12/28/14 - 1.68 09/16/19 - 2.08 12/13/23 - 8.50 09/24/24 - 10.9 & 6.3% Had 1 episode of painful ejaculation. Unsure of time frame. Limited family history due to being adopted. KATE 12/30/23 ~45g, no nodules. MRI of prostate 02/12/24 [facility] [place] - prostate volume 48 mL. No MRI evidence of clinically significant prostate cancer. S/p negative TRUS/bx 04/20/24. KATE 09/28/24 ~benign. Select MDX 09/28/24 - 56% likelihood of prostate cancer, 28% chance of detecting [place] >7. Confirm MDX is still pending. Discussed Select MDX results with pt. Again, his PSA is concerning. Recommend repeating PSA in 3 months. If PSA remains as elevated or continues to rise, will repeat MRI and proceed with either MRI fusion biopsy or saturation biopsy. He is in agreement. -Cont to monitor for Confirm MDX results, message already in pending results -PSAFT in 3 mos 2. BPH with urinary obstruction (N40.1: Benign prostatic hyperplasia with lower urinary tract symptoms) Pt states when he was in his 30s he was treated with Cipro x 3 weeks and noticed improvement in urination. Shares today that he recently completed a Cipro course. Pt mentions he has had BPH for years. IPSS 12 (8) Experienced vision changes with Flomax. Not interested in taking. Pt states urination has improved since last visit. Pt was previously interested in UroLift however prostate CA has to be ruled out first. -Consider outlet procedure in the future 3. Microscopic hematuria (R31.29: Other microscopic hematuria) Micro UA 09/28/24 - negative. Unable to provide urine sample today. Denies gross hematuria. Pt knows to call with visible blood in urine. 4. ED (erectile dysfunction) (N52.9: Male erectile dysfunction, unspecified) HARRIET 17 (17) Able to achieve an erection but unable to maintain. Able to keep an erection for several minutes. Pt states he loses his erection after he ejaculates. Mentions he has taken Viagra in the past but experienced a severe headache afterwards. Taking Cialis 10mg prn. -Cont med wo change Patient is a 69-year-old male with rising PSA. MRI was negative, standard 12 core biopsy was also negative. I discussed with the patient to obtain a select MDX that came back with a 20% chance of finding [place] 7 disease, 56% chance of finding prostate adenocarcinoma. Thus, we will proceed with anMRI, PSA check and likely saturation biopsy in 3 months. Follow-up With When Contact Information NKANSAH-AMANKRA MD, HILARIO, URSchuyler Additional Instructions: 3 mos w/ PSAFT Patient Education Prostate Cancer Screening I, Riri Segura, personally scribed for Dr. Curiel on 10/26/2024 10:06:32. . Documentation recorded by the scribe, Riri Segura, accurately reflects the services(s) I performed and decisions made by me. Authenticated by Dr. Rojas Melchor on 10/26/2024 10:15:58. Problem List/Past Medical History Ongoing Atrial fibrillation BPH with (more content not included)...[facility] HospitalComment on above:Result Comment: Electronically Signed By: HILARIO LOAIZA MD\.br\Date and Time Signed: 10/26/24 10:16 EDT\.br\Electronically Co- Signed By: Riri Segura\.br\Date and Time Co-Signed: 10/26/24 10:07 EDT URINALYSISOrdered By: SYSTEM SYSTEM on [id number] Ql (U)NegativeNormal Negativemg/dLFT UA Auto SSClarity (U)Clear (09/28/24 10:13 AM)NormalClearFTMC UA Auto SSColor (U)Light-Yellow 1 (09/28/24 10:13 AM)NormalYellowFT UA Auto SSComment on above:Interpretive Data: Microscopic readings are only performed on those samples that meet specific criteria set forth by [facility].Glucose Ql (U) NegativeNormalNegativemg/dLFT UA Auto SSHemoglobin Auto test strip (U) [Mass/Vol]NegativeNormalNegativemg/dLFT UA Auto SSKetones Auto test strip Ql (U)NegativeNormalNegativemg/dLFT UA Auto SSLeukocyte esterase Auto test strip Ql (U)NegativeNormalNegativeLeu/uLFT UA Auto SSNitrite Auto test strip Ql (U) NegativeNormalNegativemg/dLFT UA Auto SSpH (U)6.5 *NA* (09/28/24 10:13 AM)Invalid Interpretation Code5.0 - 9.0[facility] UA Auto SSProtein Ql (U)NegativeNormalNegativemg/dLSOUTHWESTERN MEDICAL C[facility] UA Auto SSSpecific gravity (U) [Rel density] 1.014 *NA* (09/28/24 10:13 AM)Invalid Interpretation Code1.005 - 1.030[facility] UA Auto SS Urobilinogen (U) [Mass/Vol]NegativeNormalNegativemg/dLSOUTHWESTERN MEDICAL C[facility] UA Auto SSURINALYSIS Ordered By: Alayna Doll on [id number] Spec DescClean Catch (09/28/24 10:13 AM)NormalSOUTHWESTERN [facility] UA Auto SSUrinalysis with Microon [id number] (U)Light-YellowNormalYellowTrihealth Bethesda Butler HospitalComment on above:Result Comment: Microscopic readings are only performed on those samples that meet specific criteria set forth by [facility].Performed By: #### [id number] #### [facility] [address] [place], [place] [address]Tvdonlm (U) [Mass/Vol]NegativeNormalNegativeTrihealth Bethesda Butler HospitalComment on above:Performed By: #### [id number] #### [facility] [address], [place] [address]Wyqsozk Ql (U)NegativeNormalNegWayne Hospital Comment on above:Performed By: #### [id number] #### [facility] [address], [place] [address]GU BloodNegativeNormalNegWayne Hospital Comment on above:Performed By: #### [id number] #### [facility] [address], [place] [address]ZK ClarityClearNormalClearTrihealth Bethesda Butler HospitalComment on above:Performed By: #### [id number] #### [facility] [address], [place] [address]PO Leuk EstNegativeNormalNegWayne Hospital Comment on above:Performed By: #### [id number] #### [facility] [address], [place] [address]PF NitriteNegativeNormalNegWayne Hospital Comment on above:Performed By: #### [id number] #### [facility] [address], [place] [address]JJ pH6.5Invalid Interpretation Code5.0-9.0[facility] HospitalComment on above:Performed By: #### [id number] #### [facility] [address], [place] [address]XT ProteinNegativeNormalNegativeTrihealth [facility] Comment on above:Performed By: #### [id number] #### [facility] [address], [place] [address]FT Spec Grav1.014Invalid Interpretation Code1.005-1.030[facility] HospitalComment on above:Performed By: #### [id number] #### [facility] [address], [place] [address]UJ UrobilinogenNegativeNormalNegativeTrihealth Bethesda Butler HospitalComment on above:Performed By: #### [id number] #### [facility] [address], [place] [address]Hjrzcatpemya (U) [Mass/Vol]NegativeNormalNegWayne HospitalComment on above:Performed By: #### [id number] #### [facility] [address], [place] [address]ZK Spec DescClean CatchNormalTrihealth Bethesda Butler HospitalComment on above:Performed By: #### [id number] #### [facility] [address] [place] [address], [place] [address]Dyqhbhm Office/Clinic Noteon [id number] Office/Clinic NoteUrology Office/Clinic Note Chief Complaint follow up HPI Staff 68 year old male here for 4 mth f/u w/ PSA Previous Dx: Elevated psa, bph with luts, ED *continues Cialis 10mg prn* PSA: 12/28/14 - 1.68 09/16/19 - 2.08 12/13/23 - 8.50 (likely subclinical prostatitis) Patient denies any dysuria or gross hematuria. Denies any flank or abdomen pain. History of Present Illness Tests reviewed: reviewed UA and PSA. I have reviewed the previous health record information and history for this patient from Dr. Curiel I have reviewed and verified the staff [...] HPI. Physical Exam Vitals & Measurements HR: 50(Peripheral) BP: 128/75 HT: 170 cm HT: 67 in WT: 103 kg WT: 227.076 lb BMI: 35.64 General Appearance: alert, no distress, well nourished, well developed male. Prostate ~benign. Assessment/Plan 69 yo M initially referred by Dr. Thompson for elevated PSA. Hx of Gilbert's Disease. Anesthesia complication ~vomiting. Denies diabetes or HTN. No former smoking history. No prior abdominalsurgeries. Denies VT or CVA. Pt states he had a heart monitor placed >6 months ago and was told he had an abnormal rhythm but this was never diagnosed. Lipids 12/13/23 wnl. BMP 12/13/23 Cr 0.94, eGFR >60. Portions of this record may have been created with voice recognition artificial intelligence software, specifically [employer], [employer] and or [employer]. Substitutions may have occurred due to the inherent limitations of voice recognition and artificial intelligence software. 1. Elevated PSA (R97.20: Elevated prostate specific antigen [PSA]) PSA 12/28/14 - 1.68 09/16/19 - 2.08 12/13/23 - 8.50 09/24/24 - 10.9 & 6.3% Had 1 episode of painful ejaculation. Unsure of time frame. Limited family history due to being adopted. KATE 12/30/23 ~45g, no nodules. MRI of prostate 02/12/24 [facility] – [place] - No MRI evidence of clinically significant prostate cancer. S/p negative TRUS/bx 04/20/24. Rising PSA is concerning along with negative biopsy 6 months ago. Discussed next steps. Recommend sending pathological tissue for Confirm MDX to obtain further genetic profiling. Also recommend Select MDX today. Pt understands we may need to proceed with a saturation biopsy at some point. He is agreeable. KATE ~benign. -Path tissue from 03/2024 sent for Confirm MDX -Select MDX specimen sent -Will reach out to rep regarding testing similar to isoPSA Follow up in 1 mos to review Confirm and Select MDX. 2. BPH with urinary obstruction (N40.1: Benign prostatic hyperplasia with lower urinary tract symptoms) MRI of prostate 02/12/24 [facility] – [place] - prostate volume 48 mL. Pt states when he was in his 30s he was treated with Cipro x 3 weeks and noticed improvement in urination. Shares today that he recently completed a Cipro course. Pt mentions he has had BPH for years. IPSS 8 (5) Experienced vision changes with Flomax. Not interested in taking. Pt states urination has improved since last visit. Pt was previously interested in UroLift however prostate CA has to be ruled out first. -Consider outlet procedure in the future 3. Microscopic hematuria (R31.29: Other microscopic hematuria) UA today shows trace-intact blood. Denies gross hematuria. Pt knows to call with visible blood in urine. -Microscopy sent 4. ED (erectile dysfunction) (N52.9: Male erectile dysfunction, unspecified) HARRIET 17 (15) Able to achieve an erection but unable to maintain. Able to keep an erection for several minutes. Pt states he loses his erection after he ejaculates. Mentions he has taken Viagra in the past but experienced a severe headache afterwards. Taking Cialis 10mg prn. -Cont med wo change Patient is a 69-year-old male who presented with elevated PSA of 8. We did not do an MRI of the prostate along with prostate biopsy that was negative. His PSA unfortunately has continued to climb up to 10 and today we will send in a select MDX along with a confirm MDX. Patient will follow-up with me in 1 month to review. We would likely proceed with a saturation biopsy with 36 cores Follow-up With When Contact Information HILARIO LOAIZA MD, URL Additional Instructions: 1 mos w/ Confirm and Select MDX Patient Education Prostate Cancer (more content not included)...[facility] Comment on above:Result Comment: Electronically Signed By: HILARIO LOAIZA MD\.br\Date and Time Signed: 09/28/24 09:39 EDT\.br\Electronically Co- Signed By: Riri Segura\.br\Date and Time Co-Signed: 09/28/24 09:24 EDT PSA TOTAL+% FREEon 09-25-2024% FREE PSA6.3 %.NOMS HealthcareComment on above:The table below lists the probability of prostate cancer for men with non-suspicious KATE results and total PSA between 4 and 10 ng/mL, by patient age (Annette et al, NAYELI 1998, 279:1542). % Free PSA 50-64 yr 65-75 yr 0.00-10.00% 56% 55% 10.01-15.00% 24% 35% 15.01-20.00% 17% 23% 20.01-25.00% 10% 20% >25.00% 5% 9% Please note: Annette et al did not make specific recommendations regarding the use of percent free PSA for any other population of men. Performed at: [facility] [address] [place], [place] [id number] Feed Mill Operator: Faraz Viera PhD, Phone: [phone] Interpretation and review of laboratory resultsAbnormalNOMS HealthcareProstate specific Ag [Mass/Vol]10.9 ng/mLAbnormal0.0 - 4.0 ng/mLNOMS HealthcareComment on above:[place] ECLIA methodology. According to the [place] [employer], Serum PSA should decrease and remain at undetectable levels after radical prostatectomy. The AUA defines biochemical recurrence as an initial PSA value 0.2 ng/mL or greater followed by a subsequent confirmatory PSA value 0.2 ng/mL or greater. Values obtained with different assay methods or kits cannot be used interchangeably. Results cannot be interpreted as absolute evidence of the presence or absence of malignant disease. PSA, FREE0.69 ng/mLN/ANOMS HealthcareComment on above:[place] ECLIA methodology. CLINISYNCNOMS HealthcareAmbulatory Visit Summaryon [id number] Visit SummaryAmbulatory Visit Summary CARMEN EASON :1955 Visit Date:05/07/2024 Ambulatory Visit Instructions Your Diagnosis Elevated PSA BPH with urinary obstruction ED (erectile dysfunction) Your Care Team Attending Physician - HILARIO LOAIZA MD Primary Care Physician - DMITRY THOMPSON MD Referring Physician - HILARIO LOAIZA MD This Is Your Medications List tadalafil (Cialis 10 mg Tab) Contact prescribing physician if questions or concerns ascorbic acid (Vitamin C) aspirin (aspirin 81 mg oral capsule) ergocalciferol (Vitamin D) hydroxychloroquine ibuprofen omega-3 polyunsaturated fatty acids (Fish Oil) Procedures Performed Colonoscopy. Discharge Vitals Height 170 cm Height 67 in Weight 103 kg Weight 227.076 lb BMI 35.64 What to do next Scheduled Follow-Up Appointments Saturday 9:40 AM EDT With: HILARIO LOAIZA MD Where: [facility] [address], [address] [place] [id number]- You Need to Schedule the Following Appointments Follow Up with HILARIO LOAIZA MD, URL When: Where: You Need to Complete the Following PSA Free & Total, Blood, Routine collect, 07/23/24, Order for future visit, Lab Collect, Elevated PSA, Print Label By Order Location Medications What How Much When Instructions Unchanged tadalafil (Cialis 10 mg Tab) 1 Tablets By Mouth As Directed as needed for for erectile dysfunction Unchanged ascorbic acid (Vitamin C) Every day Contact prescribing physician if questions or concerns Unchanged aspirin (aspirin 81 mg oral capsule) By Mouth Every 24 hours Contact prescribing physician if questions or concerns Unchanged ergocalciferol (Vitamin D) By Mouth Every week Contact prescribing physician if questionsor concerns Unchanged hydroxychloroquine By Mouth Contact prescribing physician if questions or concerns Unchanged ibuprofen Contact prescribing physician if questions or concerns Unchanged omega-3 polyunsaturated fatty acids (Fish Oil) By Mouth Contact prescribing physician if questions or concerns Allergies flu vaccines (Rash) Problems Ongoing - Any problem that you are currently receiving treatment for. Atrial fibrillation BPH with urinary obstruction ED (erectile dysfunction) Elevated PSA [place] syndrome Headache Patient Survey You may receive [...] below the bladder and in front of therectum in males. The function of the prostate is to add fluid to semen during ejaculation. Prostatecancer is one of the most common types of cancer in men. Who should have prostate cancer screening? Screening recommendations vary based on age and other risk factors, as well as between the professional organizations who make the recommendations. In general, screening is recommended if: ??? You are age 50 to 70 and have an average risk for prostate cancer. You should talk with your healthcare provider about your need for screening and how often screening should be done. Because most prostate cancers are slow growing and will not cause , screening in this age group is generally reserved for men who have a 10- to 15-year life expectancy. ??? You are younger than age 50, and [...] In general, screening is not recommended if: ??? You are younger than age 40. ??? You are between the ages of 40 and 49 and you have no risk factors. ??? You are 70 years of age or [...] is a blood test called the prostate-specific antigen(PSA) test. PSA is a protein that is made in the prostate. As you age, your prostate naturally produces more PSA. Abnormally high PSA levels may be caused by: ??? Prostate cancer. ??? An enlarged prostate that is not caused by cancer (benign prostatic hyperplasia, or BPH). This co (more content not included)...[facility] Office/Clinic Noteon [id number] Office/Clinic NoteUrology Office/Clinic Note Chief Complaint follow up HPI Staff 68 year old male here for 2 week follow up to trus bx 04/20/24 Previous Dx: Elevated psa, bph with luts, ED *continues Cialis 10mg prn* Patient denies any urinary complaints. History of Present Illness Tests reviewed: reviewed path. I have reviewed the previous health record information and history for this patient from Dr. Curiel I have reviewed and verified the staff [...] See HPI. Physical Exam Vitals & Measurements HT: 67 in HT: 170 cm WT: 103 kg WT: 227.076 lb BMI: 35.64 General Appearance: alert, no distress, well nourished, well developed male. Assessment/Plan 68 yo male initially referred by Dr. Thompson for elevated PSA. Hx of Gilbert's Disease. Anesthesia complication ~vomiting. Denies diabetes or HTN. No former smoking history. No prior abdominal surgeries. Denies VT or CVA. Pt states he had a heart monitor placed 6 months ago and was told he had an abnormal rhythm but this was never diagnosed. Lipids 12/13/23 wnl. BMP 12/13/23 Cr 0.94, eGFR >60. Portions of this record may have been created with voice recognition artificial intelligence software, specifically [employer], [employer] and or [employer]. Substitutions may have occurred due to the inherent limitations of voice recognition and artificial intelligence software. 1. Elevated PSA (R97.20: Elevated prostate specific antigen [PSA]) PSA: 12/28/14 - 1.68 09/16/19 - 2.08 12/13/23 - 8.50 (likely subclinical prostatitis) Had 1 episode of painful ejaculation. Unsure of time frame. Limited family history due to being adopted. The PCPT (prostate cancer prevention trial) risk calculator estimates his risk of prostate cancer to be 32% including a 12% risk of high grade disease and a 20% risk of low grade disease. KATE 12/30/23: ~45g, no nodules. MRI of prostate 02/12/24 [facility] – [place] - No MRI evidence of clinically significant prostate cancer. S/p TRUS/bx 04/20/24. Path ~benign. Results reviewed with pt. Will cont to monitor PSA. -PSAFT in 4 mos 2. BPH with urinary obstruction (N40.1: Benign prostatic hyperplasia with lower urinary tract symptoms) MRI of prostate 02/12/24 [facility] – [place] - prostate volume 48 cc. No urine sample provided today. Denies gross hematuria. Pt states when he was in his 30s he was treated with Cipro x 3 weeks and noticed improvement in urination. Pt mentions he has had BPH for years. Prior IPSS 5 (20) Experienced vision changes with Flomax. Not interested in taking. Discussed UroLift today. Will readdress urination at next visit in 4 mos. -Consider outlet procedure in the future 3. ED (erectile dysfunction) (N52.9: Male erectile dysfunction, unspecified) Prior HARRIET 15 (13) Able to achieve an erection but unable to maintain. Able to keep an erection for several minutes. Pt states he loses his erection after he ejaculates. Mentions he has taken Viagra in the past but experienced a severe headache afterwards. Taking Cialis 10mg prn. -Cont med wo changes Prostate biopsy was negative for adenocarcinoma. We will proceed with a repeat PSA in 4 months. Patient will follow-up at that time. Patient inquired about possible surgical intervention for BPH and cystoscopy, UroLift was discussed with him. Follow-up With When Contact Information HILARIO LOAIZA MD, URL Additional Instructions: 4 mos w/ PSAFT Patient Education Prostate Cancer Screening I, Riri Segura, personally scribed for Dr. Curiel on 05/07/2024 10:31:15. . Problem List/Past Medical History Ongoing Atrial fibrillation BPH with urinary obstruction ED (erectile dysfunction) Elevated PSA [place] syndrome Headache Historical No qualifying data Procedure/Surgical History Colonoscopy. Medications aspirin 81 mg oral capsule, Oral, q24hr Cialis 10 mg Tab, 10 mg= 1 tab(s), Oral, As Directed, PRN, 3 refills Fish Oil, Oral hydroxychloroquine, Oral ibuprofen Vitamin C, Daily Vitamin D, Oral, qWeek Allergies flu vaccines (Rash) Social History Alcohol Past. Beer, Wine. 1-2 times per month., 02/24/2024 Substance Abuse Never., 02/24/2024 Tobacco Never (more content not included)...[facility] HospitalComment on above:Result Comment: Electronically Signed By: HILARIO LOAIZA MD\.br\Date and Time Signed: 05/07/24 11:39 EST\.br\Electronically Co- Signed By: Riri Segura\.br\Date and Time Co-Signed: 05/07/24 10:31 EST Prostate Histology ([facility])on [id number] HistologyDiagnosis InfoInvalid Interpretation [facility]edoComment on above:Result Comment: A :Prostate,Left Lateral Base:Needle Biopsy Interpretation - - Benign prostatic tissue. MicroScopic Description - A :Prostate,Left Base:Needle Biopsy Interpretation - - Benign prostatic tissue. MicroScopic Description - A :Prostate,Left Lateral Mid:Needle Biopsy Interpretation - - Benign prostatic tissue. MicroScopic Description - A :Prostate,Left Mid:Needle Biopsy Interpretation - - Benign prostatic tissue. MicroScopic Description - A :Prostate,Left Lateral Roscoe:Needle Biopsy Interpretation - - Benign prostatic tissue. MicroScopic Description - A :Prostate,Left Roscoe:Needle Biopsy Interpretation - - Benign prostatic tissue. MicroScopic Description - A :Prostate,Right Base:Needle Biopsy Interpretation - - Benign prostatic tissue. MicroScopic Description - A :Prostate,Right Lateral Base:Needle Biopsy Interpretation - - Benign prostatic tissue. MicroScopic Description - A :Prostate,Right Mid:Needle Biopsy Interpretation - - Benign prostatic tissue. MicroScopic Description - A :Prostate,Right Lateral Mid:Needle Biopsy Interpretation - - Benign prostatic tissue. MicroScopic Description - A :Prostate,Right Roscoe:Needle Biopsy Interpretation - - Benign prostatic tissue. MicroScopic Description - A :Prostate,Right Lateral Roscoe:Needle Biopsy Interpretation - - Benign prostatic tissue. MicroScopic Description - Gross Description Site ID:A color thompson-white fixative Formalin cores 1 units cm stringy Site ID:B color thompson-white fixative Formalin cores 1 units cm coiled Site ID:C color thompson-white fixative Formalin cores 1 units cm coiled Site ID:D color thompson-white fixative Formalin cores 1 units cm Site ID:E color thompson-white fixative Formalin cores 1 units cm Site ID:F color thompson-white fixative Formalin cores 1 units cm Site ID:G color thompson-white fixative Formalin cores 1 units cm Site ID:H color thompson-white fixative Formalin cores 1 units cm Site ID:I color thompson-white fixative Formalin cores 1 units cm coiled Site ID:J color thompson-white fixative Formalin cores 1 units cm coiled Site ID:K color thompson-white fixative Formalin cores 1 units cm Site ID:L color thompson-white fixative Formalin cores 1 units cm A and J: Immunostain HMW cytokeratins /p63/ P504S (PIN4 immunostain) reviewed, supporting the rendered diagnosis. CPT: 82624 x 12, 20618 x2 Electronically signed by : on: 04/29/2024 14:31:35Performed By: #### [id number] #### [facility] [address] [address]Ybws OR Preoperative Recordon [id number] OR Preoperative RecordMain OR Preoperative Record Holding Area Document Type FTURO Summary Primary Physician: HILARIO LOAIZA MD Finalized Date/Time: 04/22/24 16:34:23 Pt. Name: CARMEN EASON /Sex: 1955 Male Med Rec #: [id number] Physician: HILARIO LOAIZA MD Financial #: [id number] Pt. Type: O Room/Bed: / Admit/Disch: 04/20/24 12:52:02 - 04/20/24 23:59:59 Institution: Case Times Holding FTURO Pre-Care Text: Verifies consent for planned procedure, identifies individual values and wishes concerning care, includes family members in perioperative teaching Secures patient's records' belongings, and valuables, maintains patient's dignity and privacy, and maintains patient confidentiality Entry 1 In Holding 04/20/24 13:00:00 Outcomes Met? Yes Last Modified By: Shaunna Duggan LPN 04/20/24 13:00:50 Post-Care Text: The patient participates in decisions affecting his or her perioperative plan of care The patient'sright to privacy is maintained Surgery Checklist FTURO Entry 1 Patient Birthday, ID Band Procedure History and Physical, Identification: Check, Patient Verification: Surgical Consent, With Participation Patient NPO after Midnight: n/a Personal Items: Glasses Skin Integrity Intact, Haynes, Warm, & Dry Vitals - EU Blood Pressure 138/81 Pulse 54 bpm Respirations 18 br/min SPO2 99 % Additional None RN Reviewed Yes Specimens Collected Last Modified By: David Moya Ii 04/20/24 13:23:18 Finalized By: OLIVERIO Higuera RN, Ruthann Document Signatures Signed By: Shaunna Duggan LPN 04/20/24 13:09 Shaunna Duggan LPN 04/20/24 13:06 OLIVERIO Higuera RN, Ruthann 04/22/24 16:34[facility] Patient Summaryon [id number] Patient SummaryInpatient Patient Summary [place] [address] Clinical Summary Person Information Name: CARMEN EASON Age: 68 Years : 1955 Sex: Male PCP: DMITRY THOMPSON MD Marital Status: Race: White Ethnicity: Non- or Language: Paraguayan Visit Id: Visit Reason: ELEVATED PSA, BPH WITH URINARY OBSTRUCTION Speciality: Acuity: Enc Type: Outpatient Med Service: Surgery Arrival: 04/20/2024 12:52:02 Discharge: Dispo Type: Address: [address] [place] [phone] Provider Notes: Diagnosis: Problems Active Atrial fibrillation Headache [place] syndrome ED (erectile dysfunction) BPH with urinary obstruction Elevated PSA Smoking Status: Functional Status: Sensory Deficits: History of Falls: Mobility Assistance Prior to Admission: ADLs: Current Level of Assistance for Self-Care/Mobility: Cognitive Status: Allergies flu vaccines (Rash) Laboratory or Other Results This Visit (last charted value for your 04/20/2024 visit) No Laboratory or Other Results This Visit Measurements: Height: Weight: Blood Pressure: Not Valued / Not Valued BMI: Procedures No Procedures Documented Immunizations No Immunizations Documented This Visit Final Med List: ascorbic acid (Vitamin C) every day. aspirin (aspirin 81 mg oral capsule) By Mouth every 24 hours. ciprofloxacin (Cipro 500 mg Tab) 1 Tablets By Mouth 2 times a day. Start 1 day prior to procedure..Refills: 0. diazepam (Valium 10 mg Tab) 1 Tablets By Mouth Once. Take 30 min prior to procedure.. Refills: 0. ergocalciferol (Vitamin D) By Mouth every week. hydroxychloroquine By Mouth. ibuprofen omega-3 polyunsaturated fatty acids (Fish Oil) By Mouth. tadalafil (Cialis 10 mg Tab) 1 Tablets By Mouth As Directed as needed for erectile dysfunction. Refills: 3. Care Team Members: Attending Physician: HILARIO LOAIZA MD Consulting Physician: Referring Physician: HILARIO LOAIZA MD Follow up: Patient Education Information:[facility] OR Intraoperative Recordon [id number] OR Intraoperative RecordMain OR Intraoperative Record IntraOp Document Type FTURO Summary Primary Physician: HILARIO LOAIZA MD Finalized Date/Time: 04/20/24 13:36:40 Pt. Name: CARMEN EASON/Sex: 1955 Male Med Rec #: [id number] Physician: HILARIO LOAIZA MD Financial #: [id number] Pt. Type: O Room/Bed: / Admit/Disch: 04/20/24 12:52:02 - Institution: Case Times FTURO Entry 1 Patient Times In Room 04/20/24 13:21:00 Out Room 04/20/24 13:38:00 Procedure Times Start 04/20/24 13:23:00 Stop 04/20/24 13:33:00 Anesthesia Times Last Modified By: David Moya Ii 04/20/24 13:33:45 Case Attendance FTURO Entry 1 Entry 2 Entry 3 Case Attendee JOSSE SINGH, Yue Enrique Alfons Ii F KWABENA Role Performed Surgeon - Primary Scrub - Primary Solvent Recoverer - Primary Time In 04/20/24 13:21:00 04/20/24 13:21:00 04/20/24 13:21:00 Time Out 04/20/24 13:38:00 04/20/24 13:38:00 04/20/24 13:38:00 Procedure PROSTATE TRANSRECTAL PROSTATE TRANSRECTAL PROSTATE TRANSRECTAL ULTRASOUND WITH BIO(.) ULTRASOUND WITH BIO(.) ULTRASOUND WITH BIO(.) Comments Last Modified By: David Moya Ii, Alfons Ii F Letrondo, Alfons Ii F 04/20/24 13:33:46 04/20/24 13:33:46 04/20/24 13:33:46 Surgical Procedures FTURO Entry 1 Procedure Description Procedure PROSTATE TRANSRECTAL Modifiers . ULTRASOUND WITH BIOPSY Surgeon Description TRUS BIOPSY Primary Procedure Yes Primary Surgeon HILARIO LOAIZA MD Start 04/20/24 13:23:00 Stop 04/20/24 13:33:00 Anesthesia Type Local Surgical Service Urology Wound Class 2 - Clean-Contaminated Last Modified By: David Moya Ii 04/20/24 13:33:47 General Case Data FTURO Pre-Care Text: Classifies surgical wound, implements aseptic technique, initiates traffic control Entry 1 Case Information OR URO 1 FT Case Level None Wound Class 2 - Clean-Contaminated Specialty Urology Preop Diagnosis ELEVATED PSA, BPH WITH Postop Same As Preop Yes URINARY OBSTRUCTION Postop Diagnosis ELEVATED PSA, BPH WITH Outcomes Met? Yes URINARY OBSTRUCTION Last Modified By: David Moya Ii 04/20/24 13:01:03 Post-Care Text: The patient is free from signs and symptoms of infection EU IntraOp - FTURO Pre-Care Text: Implements protective measures prior to operative or invasive procedure, confirms identity before the operative or invasive procedure, verifies operative procedure, surgical site, and laterality Entry 1 EU Perioperative Protocols Procedure(s) PROSTATE TRANSRECTAL Patient Identity Birthday, ID Band ULTRASOUND WITH BIO(.) Verified (select at Check, Patient least 2): Participation Consents / H and P H&P, Surgery/Procedure Operative Site N/A Verified Consent Marking Verified Surgical Site Yes Laterality Verified n/a Verified Procedure Verified Yes Correct Patient Yes Position Verified Availability Equipment, Medication Time Out JOSSE SINGH, Verified (If Participants Klaus RICH Laura Applicable) CNita Alfons Ii F Time Out Complete 04/20/24 13:23:00 Allergies Reviewed? Yes Allergies Reviewed Self/Patient With Body Position Lateral, right side up Skin. Condition Intact, Haynes, Warm, & Description UNCHANGED Dry Additional Tissue Specimens Collected Vitals - EU Blood Pressure 138/81 Pulse 54 bpm Respirations 18 br/min SPO2 99 % I&O - EU Outcomes Met? Yes Last Modified By: David Moya Ii 04/20/24 13:24:09 Post-Care Text: The patient is free from signs and symptoms of injury caused by extraneous objects Sign Out FTURO Entry 1 Before Patient Leaves OR Nurse verbally Yes Nurse verbally Yes confirms with the confirms with the team the name of team that the procedure(s) instrument, sponge, recorded and needle counts are correct (or N/A) Nurse verbally Yes Nurse verbally Yes confirms with the confirms with the team how the team whether there specimen is labeled are any equipment (including patient problems to be name), if applicable addressed Sign Out Complete 04/20/24 13:33:00 Last Modified By: David Moya Ii 04/20/24 13:33:50 Case Comments Finalized By: David Moya Ii Document Signatures Signed By: David Moya Ii 04/20/24 13:35 David Moya Ii 04/20/24 13:33 David Moya Ii F 04/20/24 13:36NoOhioHealth Mansfield HospitalOperative Reporton [id number] ReportOperative Report Patient: CARMEN EASON Age: 68 years Sex: Male : 1955 Associated Diagnoses: None Author: HILARIO LOAIZA MD Procedure SURGEON: Hilario Loaiza MD PREOPERATIVE DIAGNOSIS: Elevated PSA POSTOPERATIVE DIAGNOSIS: Same PROCEDURE: Ultrasound guided prostate biopsy FINDINGS: Prostate volume 41 cc, 12 core standard prostate biopsy, no hypoechoic lesions noted ANESTHESIA: Local INTRAVENOUS FLUIDS: None ESTIMATED BLOOD LOSS: 0cc TUBES AND DRAINS: None SPECIMENS: 12 core prostate biopsy tissue COMPLICATIONS: None INDICATIONS FOR PROCEDURE: Patient is a 68-year-old male who presented with elevated PSA. MRI of the prostate was negative butdue to his elevated PSA we proceeded with a 12 core prostate biopsy. H&P was reviewed, informedconsent was obtained, patient understood risk, benefits, alternatives of the procedure and wished to proceed. OPERATIVE DETAIL: He was brought to the suite and placed in the left lateral decubitus position and prepped and draped in normal sterile fashion. Timeouts performed confirming patient, procedure, side, all in the roomagreed. We began by inserting the transrectal ultrasound probe into the rectum where we measured the prostate to be 41 cc. We then began a systematic fashion obtaining prostate biopsy samples starting from the right lateral base proceeding to the right base and right lateral mid then right mid, right apex regions. We then repeated a maneuver for the left side. Once the 12 core biopsy was obtainedthe probe was removed and pressure was held on the rectum. No complication was noted. This concluded procedure. Patient was then transferred to PACU in stable condition. PLAN: F/U in 2 weeks to review pathologyNoOhioHealth Mansfield HospitalComment on above:Result Comment: Electronically Signed By: HILARIO LOAIZA MD\.br\Date and Time Signed: 04/20/24 13:39 ESTOutpatient Surgery Discharge Instructionon [id number] Surgery Discharge InstructionOutpatient Surgery Discharge Instruction [place] [id number] Patient Discharge Instructions PERSON INFORMATION Name: CARMEN EASON Date of : 1955 Current Date: 04/20/2024 13:35:40 PHYSICIANS Admitting Physician: HILARIO LOAIZA MD Comment: Discharge Diagnosis: CARMEN EASON has been given the following list of follow-up instructions, prescriptions, and patient education materials: IF UNABLE TO CONTACT YOUR PHYSICIAN AND YOU FEEL IT IS AN EMERGENCY, GO TO THE NEAREST EMERGENCY ROOM OR CALL 911 Follow up: Comment: PATIENT EDUCATION INFORMATION Instructions: I, CRAMEN EASON, have received the attached patient education materials/instructions and haveverbalized understanding: May we do a follow up call? Yes No I was present when discharge instructions were given Patient Signature Date Clinican/Nurse Signature Date You may receive a survey from Rosanna Ariza asking you to rate your care experience. Your feedback is important and will help us understand what we do well and how we can improve the quality of care we provide to you, your loved ones and our community. It???s an honor to serve you. Thank you for choosing [facility] HospitalPatient Educationon [id number] EducationPatient Education [facility] HospitalProstate Histology ([facility])on [id number] Method of ExtractionNeedle BiopsyProMedica Flower HospitalComment on above:Performed By: #### [id number] #### [facility] [address] [place], [place] [address]OC Number of [id number] Interpretation [facility] ToledoComment on above:Performed By: #### [id number] #### [facility] [address] [facility], [place] [address]DV Specimen 1L Lat [facility] Comment on above:Performed By: #### [id number] #### [facility] [address] [facility], [place] [address]DP Specimen 10R Lat [facility] Comment on above:Performed By: #### [id number] #### [facility] [address] [facility], [place] [address]CL Specimen 11R Apx [facility] Comment on above:Performed By: #### [id number] #### [facility] [address] [facility], [place] [address]LC Specimen 12R Lat Apx [facility] Comment on above:Performed By: #### [id number] #### [facility] [address] [facility], [place] [address]MO Specimen 2L Base [facility] Comment on above:Performed By: #### [id number] #### [facility] [address] [facility] [place], [place] [address]UJ Specimen 3L Lat [facility] Comment on above:Performed By: #### [id number] #### [facility] [address] [facility], [place] [address]XS Specimen 4L Mid [facility] Comment on above:Performed By: #### [id number] #### [facility] [address] [facility], [place] [address]RG Specimen 5L Lat [facility] Comment on above:Performed By: #### [id number] #### [facility] [address] [facility], [place] [address]TS Specimen 6L Apx [facility] Comment on above:Performed By: #### [id number] #### [facility] [address] [facility], [place] [address]CP Specimen 7R Base [facility] Comment on above:Performed By: #### [id number] #### [facility] [address] [facility], [place] [address]AT Specimen 8R Lat Bse [facility] Comment on above:Performed By: #### [id number] #### [facility] [address] [place], [place] [address]ZD Specimen 9R Mid [facility] Comment on above:Performed By: #### [id number] #### [facility] [address] [facility], [place] [address]TL Type of ServiceTechnical [facility] Medical CenterComment on above:Performed By: #### [id number] #### [facility] [address] [facility], [place] [address]Ssmiefwjsr Visit Summaryon [id number] Visit Summary Ambulatory Visit Summary CARMEN EASON :1955 Visit Date:02/24/2024 Ambulatory Visit Instructions Your Diagnosis Elevated PSA BPH with urinary obstruction ED (erectile dysfunction) Your Care Team Attending Physician - JOSSE SINGH, HILARIO Primary Care Physician - DMITRY THOMPSON MD This Is Your Medications List ascorbic acid (Vitamin C) aspirin (aspirin 81 mg oral capsule) ciprofloxacin (Cipro 500 mg Tab) ergocalciferol (Vitamin D) hydroxychloroquine ibuprofen omega-3 polyunsaturated fatty acids (Fish Oil) tadalafil (Cialis 10 mg Tab) [Image Removed: STOP]Stop taking these medications tamsulosin (tamsulosin 0.4 mg Cap) Procedures Performed Colonoscopy. Discharge Vitals Heart Rate (Peripheral) 54 Blood Pressure 128/78 Height 185 cm Height 73 in Weight 103 kg Weight 227.076 lb BMI 30.09 What to do next Scheduled Follow-Up Appointments Saturday 12:00 PM EST Where: [facility] Saturday 3:00 PM EST Where: [facility] Saturday 3:00 PM EST Where: [facility].UROLOGY You Need to Schedule the Following Appointments Follow Up with JOSSE SINGH, DIONISIO RICH When: Where: You Need to Complete the Following Prostate, [facility], 04/13/24, Routine, Transport Mode: Ambulatory, Reason: ELEVATED PSA, BPH WITH URINARY OBSTRUCTION, pp_set_radiology_subspecialty, [facility] Medications What How Much When Instructions New ciprofloxacin (Cipro 500 mg Tab) 1 Tablets By Mouth 2 times a day Start 1 day prior to procedure. Pickup at [facility]/pharmacy #[id number] Unchanged ascorbic acid (Vitamin C) Every day Unchanged aspirin (aspirin 81 mg oral capsule) By Mouth Every 24 hours Unchanged ergocalciferol (Vitamin D) By Mouth Every week Unchanged hydroxychloroquine By Mouth Unchanged ibuprofen Unchanged omega-3 polyunsaturated fatty acids (Fish Oil) By Mouth Unchanged tadalafil (Cialis 10 mg Tab) 1 Tablets By Mouth As Directed as needed for for erectile dysfunction Pharmacy Information [facility]/pharmacy #[id number]: [address] [place], [place] [id number] [phone] What How Much When Comments Stop Taking tamsulosin (tamsulosin 0.4 mg Cap) 1 Capsules By Mouth Every day Allergies flu vaccines (Rash) Problems Ongoing - Any problem that you are currently receiving treatment for. Atrial fibrillation BPH with urinary obstruction ED (erectile dysfunction) Elevated PSA [place] syndrome Headache Patient Survey You may receive a survey via text or e-mail asking about your office visit. Please share your experience with us by completing your survey. We appreciate your feedback and thank you for choosing us for your care. Education Materials Transrectal Ultrasound-Guided Prostate Biopsy A transrectal ultrasound-guided prostate biopsy is a procedure to remove samples of prostate tissuefor testing. The prostate is a walnut-sized gland that is located below the bladder and in front ofthe rectum. During this procedure, a small device (probe) is lubricated and put inside the rectum. The probe sends out sound waves that make a picture of the prostate and surrounding tissues (transrectal ultrasound). The images are used to help guide the process of removing the samples. The samplesare taken to a lab to be checked for prostate cancer. This procedure is usually done to evaluate the prostate gland of men who have raised (elevated) levels of prostate-specific antigen (PSA), which can be a sign of prostate cancer or prostate enlargement related to aging (benign prostatic hyperplasia, or BPH). Tell a health care provider about: ??? Any allergies you have. ??? All medicines you are taking, including vitamins, herbs, eye drops, creams, and ucnx-wod-zfeklrj medicines. ??? Any problems you or family members have had with anesthetic medicines. ??? Any bleeding problems you have. ??? Any surgeries you have had. ??? Any medical conditions you have. ??? Any prostate infections you have had. What are the risks? Generally, this is a safe procedure. However, problems may occur, including: ??? Prostate infection. ??? Bleeding from the rectum. ??? Blood in the urine. ??? Allergic reactions to medicines. ??? Damage to surrounding structures such as blood vessels, organs, or muscles. ??? Difficulty passing urine. ??? Nerve damage. This is usually temporary. What happens before the procedure? Medicines Ask your health care provider about: ??? Changing or stopping your regular medicines. This is especially important if you are taking diabetes medicines or blood thinners. ??? Taking medicines such as aspirin and ibuprofen. These medicines can thin your blood. Do not take these medicines unless your health care provider tells you to take them. ??? Taking xjri-jmq-kwfjoey medicines, vitamins, herb (more content not included)... [facility] Office/Clinic Noteon 07-65-0515Mniwses Office/Clinic NoteUrology Office/Clinic Note HPI Staff 68 yo male here to discuss results of MRI done 02/12/24 Dx: Elevated PSA, BPH with urinary obstruction, ED. PSA: 12/28/14 - 1.68 09/16/19 - 2.08 12/13/23 - 8.50 Dysuria: _no Incomplete bladder emptying: _no Hematuria: _no Frequency: _q2-3 hrs Urgency: _rarely Nocturia: _1x Stream: _weak Leaking: _no Post void dripping: _no Wearing pads/ Depends: _no Urge incontinence: _no Stress incontinence: _no Incontinence without Sensory Awareness: _no Abdominal pain: _no Flank pain: _no Sexual complaints: _no History of Present Illness Tests reviewed: reviewed UA and MRI. I have reviewed the previous health record information and history for this patient from Dr. Curiel I have reviewed and verified the staff HPI to be accurate for this encounter. There have been no associated fever, chills, flank pain, or blood in the urine. Denies any urinary infections since last encounter. Review of Systems ROS - Provider Constitutional: denies weight loss, denies hot flashes. Eyes: denies eye problems. Gastrointestinal: denies nausea, denies vomiting. Cardiovascular: denies chest pain or angina. Integumentary: no dryness Musculoskeletal: denies musculoskeletal symptoms. ENMT: denies otolaryngeal symptoms. Respiratory: no shortness of breath. Heme/Lymph: denies easy bleeding tendency, denies easy bruising tendency. Psychiatric: no confusion, no anxiety. Genitourinary: See HPI. Physical Exam General Appearance: alert, no distress, well nourished, well developed male. Assessment/Plan 68 yo male initially referred by Dr. Thompson for elevated PSA. Hx of Gilbert's Disease. Anesthesia complication ~vomiting. Denies diabetes or HTN. No former smoking history. No prior abdominal surgeries. Denies VT or CVA. Pt states he had a heart monitor placed 6 months ago and was told he had an abnormal rhythm but this was never diagnosed. Lipids 12/13/23 wnl. BMP 12/13/23 Cr 0.94, eGFR >60. Portions of this record may have been created with voice recognition artificial intelligence software, specifically [employer], [employer] and or [employer]. Substitutions may have occurred due to the inherent limitations of voice recognition and artificial intelligence software. 1. Elevated PSA (R97.20: Elevated prostate specific antigen [PSA]) PSA: 12/28/14 - 1.68 09/16/19 - 2.08 12/13/23 - 8.50 No recent imaging. Had 1 episode of painful ejaculation. Unsure of time frame. Limited family history due to being adopted. The PCPT (prostate cancer prevention trial) risk calculator estimates his risk of prostate cancer to be 32% including a 12% risk of high grade disease and a 20% risk of low grade disease. KATE 12/30/23: ~45g, no nodules. MRI of prostate 02/12/24 [facility] – [place] - No MRI evidence of clinically significant prostate cancer. Again advised pt that MRIs may miss malignancy in 12-16% of patient's. Proceeding with biopsy is recommended due to rise in PSA. Pt agrees with plan. -Will schedule TRUS/bx. Prophy ATB sent. The procedural risks, benefits, details, and treatment alternatives have been discussed with the patient. These include minimal to severe bleeding, infection,blood in the semen, inability to urinate, and severe infection requiring hospitalization and IV antibiotics, among others. Full informed consent has been obtained. Will order Local anesthesia. -F/up in 1 year with PSA if biopsy is neg 2. BPH with urinary obstruction (N40.1: Benign prostatic hyperplasia with lower urinary tract symptoms) MRI of prostate 02/12/24 [facility] – [place] - prostate volume 48 cc. UA today shows trace-intact blood. Denies gross hematuria. Pt states when he was in his 30s he was treated with Cipro x 3 weeks and noticed improvement in urination. Pt mentions he has had BPH for years. IPSS 5 (20) Reports difficulty starting his stream. Weak stream but denies hesitancy. Not confident that he empties to completion. Nocturia 1x. Started on Flomax at last visit. Reports a little better with the Flomax . Pt states his flow has improved and it doesn't take him as long to get started. Reports when he first wakes up in the morning his vision is different . Recommended pt to d/c med for the nextweek to see if vision changes stop. -D/c Flomax for 1 wk to monitor vision changes 3. ED (erectile dysfunction) (N52.9: Male erectile dysfunction, unspecified) HARRIET 15 (13) Able to achieve an erection but unable to maintain. Able to keep an erection for several minutes. Pt states he loses his erection after he ejaculates. Mentions he has taken Viagra in the past but experienced a severe headache afterwards. Started on Cialis 10mg prn at last visit. Denies SE. Has noticed improvement with med. Pleased and wishes to remain on med management. -Cont med wo changes Patient presents with elevated PSA today. MRI was unremarkable but I did discuss with the patient that based on his prostate size, PSA e (more content not included)...[facility] HospitalComment on above:Result Comment: Electronically Signed By: HILARIO LOAIZA MD\.br\Date and Time Signed: 02/24/24 11:23 EST\.br\Electronically Co-Signed By: Riri Segura\.br\Date and Time Co-Signed: 02/24/24 11:20 ESTCreatinine (Bld) [Mass/Vol] Ordered By: Hilario Loaiza on [id number] [Mass/Vol]Whole blood creatinine measurement0.6-1.3FLima Memorial HospitalComment on above:ER/ESD physician is notified/shown all ISTAT results.Critical values may be confirmed by laboratorytesting ifdeemed necessary by ER attending doctor. ISTAT XRay CREon [id number] [Mass/Vol]1.0 mg/dLNormal0.6-1.3The [facility] Physician GroupComment on above:Result Comment: ER/ESD physician is notified/shown all ISTAT results. Critical values may be confirmed by laboratory testing if deemed necessary by ER attending doctor.Performed By: #### ISCRE #### [place] [address] USAISTAT GFR>60.0NormalThSaint Alphonsus Neighborhood Hospital - [facility] N[facility] Physician GroupComment on above:Result Comment: PERFORMED BY: [place] [address] PATHOLOGIST ROOF PLUMBER JEANIE WELCH M.D.Performed By: #### ISCRE #### [place] [id number] [facility] prostate wo/w conon 08-41-0846PA prostate wo/w con [facility] Main [place] [id number] MRI Report Signed Patient: Carmen Eason MR#: [id number] : 1955 Acct:[id number] Age/Sex: 68 / M ADM Date: 02/12/24 Loc: MR Room: Type: [facility] Attending Dr: Hilario Loaiza MD Copies to: Hilario Loaiza MD Ordering Provider: Hilario Loaiza MD Date of Service: 02/12/24 MR/MR prostate wo/w con: R97.20 EXAMINATION: MR prostate wo/w con HISTORY: Elevated PSA. COMPARISON: NONE TECHNIQUE: Multiparametric imaging of the prostate gland was performed with IV contrast. FINDINGS: Prostate Dimensions: 5.4 x 3.6 x 4.8 cm. Prostate Volume: 48 mL. Peripheral Zone: Heterogenous inT2 signal suggestive of prior prostatitis. No suspicious T2 or ADC map abnormality is identified to suggest prostate malignancy. Central/Transitional Zone: BPH changes. Seminal Vesicles: Unremarkable Neurovascular bundles: Unremarkable. Lymphadenopathy: No evidence of lymphadenopathy. Bladder: No focal lesion. Bowel: The visualized bowel is without acute abnormality. Peritoneal Cavity: No free fluid. Bones: No suspicious bony lesion. MR/MR prostate wo/w con IMPRESSION: No MRI evidence of clinically significant prostate cancer. Impression dictated by: Marin Daniels Jr., DAwaisOAwais02/12/2024 3:04 PM Dictation Location: [place] [address] Transcribed By: [facility] 02/12/24 1504 Dictated By: Marin Daniels Jr, DO 02/12/24 1450 Signed By: 02/12/24 1504[facility] Physician GroupMagnetic resonance imaging reportOrdered By: Marin Daniels on 41-24-1936Gwvcf reportUNIVERSITY H[facility]ALS [facility] [place] [address] MRI Report Signed Patient: Carmen Eason MR#: [id number] : 1955 Acct:[id number] Age/Sex: 68 / M ADM Date: 4 Loc: MR Room: Type: [facility] Attending Dr: Hilario Loaiza MD Copies to: Hilario Loaiza MD~ Ordering Provider: Hilario Loaiza MD Date of Service: 02/12/24 MR/MR prostate wo/w con: R97.20 EXAMINATION: MR prostate wo/w con HISTORY: Elevated PSA. COMPARISON: NONE TECHNIQUE: Multiparametric imaging of the prostate gland was performed with IV contrast. FINDINGS: Prostate Dimensions: 5.4 x 3.6 x 4.8 cm. Prostate Volume: 48 mL. Peripheral Zone: Heterogenous inT2 signal suggestive of prior prostatitis. Nosuspicious T2 or ADC map abnormality is identified to suggest prostate malignancy. Central/Transitional Zone: BPH changes. Seminal Vesicles: Unremarkable Neurovascular bundles: Unremarkable. Lymphadenopathy: No evidence of lymphadenopathy. Bladder: No focal lesion. Bowel: The visualized bowel is without acute abnormality. Peritoneal Cavity: No free fluid. Bones: No suspicious bony lesion. MR/MR prostate wo/w con IMPRESSION: No MRI evidence of clinically significant prostate cancer. Impression dictated by: Marin Daniels Jr., DAwaisOAwais02/12/2024 3:04 PM Dictation Location: [place] [address] Transcribed By: [facility] 02/12/24 1504 Dictated By: Marin Daniels Jr, DO 02/12/24 1450 Signed By: 02/12/24 1504 [facility] HospitalNo Panel InformationOrdered By: Hilario Loaiza on 70-01-9018Hoegxlu Estimated GFR (eGFR)> 60.0[facility] HospitalAmbulatory Visit Summaryon 16-92-8210Zrvjzvmhxo Visit SummaryAmbulatory Visit Summary CARMEN EASON :1955 Visit Date:12/30/2023 Ambulatory Visit Instructions Your Diagnosis Elevated PSA BPH with urinary obstruction ED (erectile dysfunction) Tests Performed MRI Pelvis (Soft Tissue) w/ + w/o contrast -- Results Pending -- Please visit your patient portal for your results or contact your primary care physician. Your Care Team Attending Physician - JOSSE SINGH, HILARIO Primary Care Physician - DMITRY THOMPSON MD [...] Schedule the Following Appointments Follow Up with JOSSE SINGH, DIONISIO RICH When: Where: Medications What How Much When [...] acids (Fish Oil) Contact prescribing physician if questionsor concerns Allergies flu vaccines (Rash) Problems Ongoing - Any problem that you are currently receiving treatment for. Atrial fibrillation BPH with urinary obstruction ED (erectile dysfunction) Elevated PSA [place] syndrome Headache Patient Survey You may receive [...] below the bladder and in front of therectum in males. The function of the prostate is to add fluid to semen during ejaculation. Prostatecancer is one of the most common types [...] prostate cancer. You should talk with your healthcare provider about your need for screening and [...] is a blood test called the prostate-specific antigen(PSA) test. PSA is a protein that is [...] be done after th (more content not included)...NormalGood Hope Hospitaler [facility] HospitalUrology Office/Clinic Noteon 51-75-9737Kyvywii Office/Clinic NoteUrology Office/Clinic Note Chief Complaint new patient - [...] smoking history. No prior abdominal surgeries. Denies VT or CVA. Pt states he had a heart monitor placed 6 months ago and was told he had an abnormal rhythm but this was never diagnosed. Lipids 12/13/23 wnl. BMP 12/13/23 Cr 0.94, eGFR >60. Portions of this record may have been created with voice recognition artificial intelligence software, specifically [employer], [employer] and or [employer]. Substitutions may have occurred due to the [...] PSA by the prostate gland as well ascommon causes of elevated serum PSA including infection, inflammation, BPH and prostate cancer. He understood that his PSA level may also be falsely elevated due to any manipulation/instrumentation around the time of a PSA draw. [...] lesions. He understands MRIs may miss malignancy in12-16% of patients. Pt inquired if HIFU is [...] with urinary obstruction (N40 (more content not included)...[facility] HospitalComment on above:Result Comment: Electronically Signed By: HILARIO LOAIZA MD\.br\Date and Time Signed: 12/30/23 11:00 EDT\.br\Electronically Co-Signed By: Riri Segura\.br\Date and Time Co- Signed: 12/30/23 10:51 EDTALL CBC WITH AUTO DIFFon [id number] ABSOLUTE AUTO0.0NOMS HealthcareBasophils/100 WBC (Bld)0.6 %0.2 - 2.0 %[facility] Eosinophils/100 WBC (Bld)4.4 %0.9 - 7.0 %NOMCooper County Memorial HospitalErythrocyte distribution width (RBC) [Ratio]12.5 %11.0 - 15.0 %NOM HealthcareHematocrit (Bld) [Volume fraction]42.0 %42.0 - 54.0 %NOMCooper County Memorial HospitalHemoglobin (Bld) [Mass/Vol]14.4 g/dL 14.0 - 18.0 g/dLNOBarnes-Jewish West County HospitalIMMATURE GRANULOCYTES ABS AUTO0.01[facility] Immature granulocytes/100 WBC (Bld)0.2 %0.0 - 0.5 %[facility] HealthcareInterpretation and review of laboratory resultsAbnormalNOBarnes-Jewish West County HospitalLYMPHOCYTES ABSOLUTE AUTO1.2NOMS HealthcareLymphocytes/100 WBC (Bld)22.6 %20.5 - 60.0 %The Rehabilitation InstituteH (RBC) [Entitic mass]31.7 pg25.9 - 34.0 pgNOBarnes-Jewish HospitalHC (RBC) [Mass/Vol]34.3 g/dL29.9 - 35.2 g/dLThe Rehabilitation InstituteV (RBC) [Entitic vol]92.5 fL 80.0 - 94.0 fLNOBarnes-Jewish West County HospitalMONOCYTES ABSOLUTE AUTO0.5[facility] Monocytes/100 WBC (Bld)8.7 %1.7 - 12.0 %NOM HealthcareNEUTROPHILS ABSOLUTE AUTO 3.3NOMS HealthcareNeutrophils/100 WBC (Bld)63.5 %43.0 - 75.0 %[facility] Platelet mean volume (Bld) [Entitic vol]11.4 fL9.5 - 13.5 fLNOMS HealthcareTBH EO #0.2NOMS HealthcareTBH [id number] HealthcareTBH RBC4.54LowNOMS Chillicothe HospitalTBH WBC5.2NOMS HealthcareCLINISYNCNOMS HealthcareLetter (Out)on 47-61-5905Eibaoy (Out)[id number] Carmen Eason 1955 M Counts Include [address] At [facility] Provider Department Center 11/19/2022 None-None [facility] Family History Adopted: YesNormalUniversity of Covenant Health LevellandLetter (Out)on 11-15-2022 Letter (Out)[id number] Carmen Eason 1955 [facility] Provider Department [place] 11/15/2022 None-None [facility] Family History Adopted: YesNormalUniversity of Covenant Health LevellandOffice Visiton 11-14-2022 Follow-up [id number] Carmen Eason 1955 [facility] Provider Department [place] 11/14/2022 CATHI REDDY AVELINO [facility] Family History Adopted: Yes Level of Service:17551 [place] OFFICE/OUTPATIENT NEW MODERATE MDM 45-59 MINUTESNoal [facility] Liverpool City HospitalOrders Onlyon 19-97-0525Lpjdpk [id number] Carmen Eason 1955 [facility] Provider Department [place] 11/14/2022 89LEONEL GOLDMAN AVELINO [facility] Family History Adopted: YesNormalUniversity of Covenant Health LevellandASYMPTOMATIC COVID-19 ANTIGENon 49-48-5499DOF StatementSEE [facility] GeneralComment on above:Result Comment: This test has not been FDA [...] declaration is terminated or authorization is revoked sooner.Performed By: #### CVDAGA #### [facility] [address] [place] [address] Dr. Margarita Armenta-CoV-2 (COVID-19) RNA CINTHYA+probe Ql (Unsp spec)NegativeNormal NEGATIVEThe [facility] on above:Result Comment: Negative results are presumptive. They do not preclude infection and should not be used as the sole basis for treatment decisions. Additional confirmatory testing by a molecular method should be considered.Performed By: #### CVDAGA #### [facility] [address] [place] [address] Dr. Margarita ArellanoCovid-19 PCR (CVDTB)on 53-56-0532EPNK-CoV-2 (COVID-19) RNA CINTHYA+probe Ql (Unsp spec)DetectedCritically abnormalNOT DETECTEDThe White HospitalComrehabilitation institute of [facility] on above:Result Comment: This test is not yet approved or cleared by the [place] FDA. When there are no FDA-approved or cleared tests available, and other criteria are met, FDA can make tests available under an emergency access mechanism called an Emergency Use Authorization (EUA). The EUA for this test is supported by the [employer] Tender of Health and Human Service's (HHS's) declaration [...] no longer be used). Performed By: #### CVDTBH #### [facility] [address] [place], [place] [id number] Dr. Margarita Arellano Vital Signs Date TimeVital SignValuePerforming IipqbidccHivzlynx67-15-7935 14:50-0400 Diastolic blood epdnrmle53 mm[Hg]Dmitry Thompson MD Work Phone: 1(467)[address]10-31-2025 14:50-0400 Heart rate50 /minDmitry Thompson MD Work Phone: 1(856)[address] [place], [place] 1973010-31-2025 14:50-0400 Respiratory rate16 /minDmitry Thompson MD Work Phone: 1(733)[address] [place], [place] 1973010-31-2025 14:50-0400 SaO2% (BldA) [Mass fraction]99 %Dmitry Thompson MD Work Phone: 1(568)[address] [place], [place] 1973010-31-2025 14:50-0400 Systolic blood mm[Hg]Dmitry Thompson MD Work Phone: 1(864)[address] [place], [place] 1973010-31-2025 10:43-0400 Body yjmubd022.42 cmDmitry Thompson MD Work Phone: 1(777)[address] [place], [place] 1973010-31-2025 10:43-0400 Body bbewezqnnwv41.7 [degF]Dmitry Thompson MD Work Phone: 1(116)[address] [place], [place] 1973010-31-2025 10:43-0400 Body epkzyr484.14 kgDmitry Thompson MD Work Phone: 1(925)[address] [place], [place] 1973010-20-2025 13:36-0400 Body mktqih646.42 cmDmitry Thompson MD Work Phone: 1(720)[address] [place], [place] 1973010-20-2025 13:36-0400 Body mass index (BMI) [Ratio]30.9 kg/m2Dmitry Thompson MD Work Phone: 1(085)[address]10-20-2025 13:36-0400 Body dolthb301.14 kgDmitry Thompson MD Work Phone: 1(234)[address] [place], [place] 1973010-20-2025 13:36-0400 Diastolic blood dkltcdoy85 mm[Hg]Dmitry Thompson MD Work Phone: 1(713)[address] [place], [place] 1973010-20-2025 13:36-0400 Heart rate60 /minDmitry Thompson MD Work Phone: 1(685)755-[address] [place], [place] 594[address]10-20-2025 13:36-0400 Respiratory rate16 /Mahendra Thompson MD Work Phone: 1(657)[address]10-20-2025 13:36-0400 SaO2% (BldA) [Mass fraction]96 %Dmitry Thompson MD Work Phone: 1([phone])[address]10-20-2025 13:36-0400 Systolic blood nkvyglrb649 mm[Hg]Dmitry Thompson MD Work Phone: 1(019)[address] [place], [place] 1973009-15-2025 08:15-0400 Body olvlxx561.42 cmDmitry Thompson MD Work Phone: 1(357)[address] [place], [place] 1973009-15-2025 08:15-0400 Body mass index (BMI) [Ratio]30.9 kg/m2Dmitry Thompson MD Work Phone: 1(236)[address]09-15-2025 08:15-0400 Body .14 kgDmitry Thompson MD Work Phone: 1(649)[address] [place], [place] 1973009-15-2025 08:15-0400 Diastolic blood bjcrjiwc02 mm[Hg]Dmitry Thompson MD Work Phone: 1(460)[address]09-15-2025 08:15-0400 Heart rate52 /Mahendra Thompson MD Work Phone: 1(622)[address]09-15-2025 08:15-0400 Respiratory rate18 /Mahendra Thompson MD Work Phone: 1(984)[address]09-15-2025 08:15-0400 SaO2% (BldA) [Mass fraction]97 %Dmitry Thompson MD Work Phone: [phone])[address]09-15-2025 08:15-0400 Systolic blood lzbzpkax114 mm[Hg]Dmitry Thompson MD Work Phone: [facility]12-02-2024 11:19-0500 Blood Pressure Cash LOAIZA [facility] [place] 333142-02-2024 11:19-0500Diastolic blood xvvqinlx48 mm[Hg]HILARIO LOAIZA [facility] [place] 333142-02-2024 11:19-0500Heart rate54 /minHILARIO LOAIZA [facility] [place] 333142-02-2024 11:19-0500Systolic blood egquiwgr199 mm[Hg]HILARIO LOAIZA [facility] [place] 152660-07-2024 13:26-0400Body fgtzyt862.4 cmKybarby Willard DO Work Phone: 1(863)[facility] [place], [place] [address]Wvuhnivwyy86-83-2335 13:26-0400Body mass index (BMI) [Ratio]29.82 kg/m2Chhaya Willard DO Work Phone: 1(127)[facility]301[facility] HospitalQcyjufztkq16-20-7979 13:26-0400Body jptyjc099.51 kgKybarby Willard DO Work Phone: 1(059)[facility] [place], [place] [address]Smjzrgvelh24-39-3032 13:26-0400Diastolic blood kgppmjja44 mm[Hg]Chhaya Willard DO Work Phone: 1(424)[place] [address]Fcloqiqmne49-05-7420 13:-0400Heart rate57 /min Chhaya Sudheer DO Work Phone: 1(877)[place] [address]Iccbnjortq15-52-7096 13:-0400Respiratory rate12 /minChhaya Willard DO Work Phone: 1(958)[facility] HospitalMichael [facility] [address]Nqefwglczc53-47-5209 13:26-4998FbS8% (BldA) [Mass fraction]97 %Chhaya Willard DO Work Phone: [facility] HospitalTnkbzabase78-65-0545 13:26-0400Systolic blood nwkogvmt953 mm[Hg]Chhaya Willard DO Work Phone: [facility] HospitalChxibsniqn86-65-8800 10:36-0400Blood Pressure LocationKGAURI CURIEL-PER [facility] [place] 333140-07-2024 10:36-0400Diastolic blood fokejvgt20 mm[Hg]HILARIO CURIEL-AMLAURITA [facility] [place] 333140-07-2024 10:36-0400Heart rate51 /Miah CURIEL-PER [facility] [place] 333140-07-2024 10:36-0400Systolic blood qyboqjul554 mm[Hg]HILARIO CURIEL-AMANK [facility]09-09-2024 09:18-0400Body fsyjzp827.4 cmDmitry Thompson MD Work Phone: [facility] HospitalZjkyetzhxr68-50-4273 09:18-0400Body mass index (BMI) [Ratio]30.48 kg/m2Dmitry Thompson MD Work Phone: [facility] HospitalWnvphuwedw01-49-6946 09:18-0400Body temperature 97.5 [degF]Dmitry Thompson MD Work Phone: [facility] HospitalBkqpvltclr89-71-7962 09:18-0400Body ecigud664.78 kgDmitry Thompson MD Work Phone: [facility] HospitalGhoqhfvtun52-99-4248 09:18-0400Diastolic blood lwsijpsx09 mm[Hg]Dmitry Thompson MD Work Phone: [place] [address]Yqnsufoldu74-68-7512 09:18-0400Heart rate53 /min Dmitry Thompson MD Work Phone: noBarnes-Jewish West County HospitalIwocidhxgm51-46-0789 09:18-0400Respiratory rate18 /minDmitry Thompson MD Work Phone: NOBarnes-Jewish West County HospitalVcrdzxmacn96-67-9757 09:18-7892FfU0% (BldA) [Mass fraction]97 %Dmitry Thompson MD Work Phone: [facility] HospitalPdzweunrvl64-55-9533 09:18-0400Systolic blood tazlbyly581 mm[Hg]Dmitry Thompson MD Work Phone: [facility] Encounters Encounter DateEncounter TypeCare ProviderFacilityStart: 17-26-4038twidmknlnvsonam CURIEL-AMCHELSEARAFacility:SHAHBAZ Segaltart: 01-22-2025 End: 48-57-2247ygpydmdwaaRifqxe Jhon AdamsonFacility:[facility] Centertart: 45-08-6266Hvb-patient / Non-visitGeorge Jhon Adamson MD-[facility] Work Phone: Start: 01-11-2025 End: 51-65-7633zfrchsroavNnaw Naderer MD Work Phone: [phone]-TmzphbcrkFranciscan Health Crown PointStart: 01-11-2025 End: 26-35-4604Oguxltj encounter procedureGeorge Jhon Adamson MD-[facility] Work Phone: Start: 12-07-2024 End: 15-14-1724wqjkfesnmrXpcl Naderer MD Work Phone: [facility] Work Phone: Start: 12-07-2024 End: 03-67-7311Ppsndjj encounter procedureDmitry Thompson MD-[facility] Work Phone: Start: 10-26-2024 End: 90-01-5666kjijrbvcreZM HILARIO NKANSAH-AMANKRAFacility:EU NorwalkStart: 10-26-2024 End: 32-57-7123Lwnvbtm encounter procedureHILARIO SANDHUAH-AMANKRA [facility] Start: 09-28-2024 End: 45-79-7554lsihomwlmrRO KWABENA NKANSAH-AMANKRAFacility:FTMCStart: 09-28-2024 End: 62-56-2420Oif Drop offHILARIO SANDHUAH-AMANKRA [facility] Start: 09-28-2024 End: 94-73-9064nttfsuyxjkEY KWABENA NKMILINDAH-AMANKRAFacility:EU NorkStart: 09-28-2024 End: 27-71-1981Kcngrzj encounter procedureKGAURI SANDHUAH-AMANKRA [facility] Start: 09-24-2024 End: 45-26-5035Gvgcpoxch Result EncounterGeneric External Data ProviderNOMS External Department UnsolicitedStart: 09-24-2024 End: 11-99-7500Tbzwtufkk Result EncounterGeneric External Data ProviderNOMS External Department UnsolicitedStart: 05-07-2024 End: 53-97-0166mwxccfeoscOKNLARG NKANSAH-AMANKRAFacility:EU NorkStart: 05-07-2024 End: 67-02-8884Igfehne encounter procedureHILARIO SANDHUAH-AMANKRA [facility] Start: 04-20-2024 End: 96-25-0609stcgmlsymlYXXNHIK NKANSAH-AMANKRAFacility:FTMCStart: 04-20-2024 End: 59-95-5230Ekovaya encounter procedureHILARIO DILLANGLENN-AMANK [facility] Start: 02-24-2024 End: 37-43-9711tdclekasleZGEKWDX NKANSAH-DENAERAFacility:EU [place]walkStart: 02-24-2024 End: 59-43-8382Nvvnnwg encounter procedureHILARIO CURIEL-PER [facility] Start: 02-12-2024 End: 72-00-9147Wsfoiiz encounter Marcelino Thompson MD Work Phone: [facility] [place] Work Phone: Start: 02-12-2024 End: 62-86-7581vjvyntnkyoShgw Naderer MD Work Phone: [facility] Work Phone: Start: 12-30-2023 End: 10-85-4883Xjresv flowsGino Willard DO Work Phone: [facility] BWM GENSStart: 12-30-2023 End: 80-70-2310Mehtsc flowsGino Willard DO Work Phone: [facility] BWM GENSStart: 12-30-2023 End: 02-92-4523Icaoybm encounter procedureChhaya Willard DO Work Phone: [facility] BWM GENSComment on above:Screening for malignant neoplasm of colon (Primary Dx)Start: 12-30-2023 End: 95-30-6726uxyofvrnryIQDX DUCKETTNot AvailableStart: 12-30-2023 End: 04-85-6740ekbfbifyjmRWEDJSK NKANSAH-DENAERAFacility:EU NorwalkStart: 12-30-2023 End: 41-51-1011Rjqituc encounter procedureKWABENA JOSSE [facility] Start: 74-10-7219nrgsuiurbwVVZGBAK JOSSE Facility: [place]Start: 12-13-2023 End: 29-56-7877Bkrtqayuo Result EncounterDmitry Thompson MD Work Phone: noms External Department UnsolicitedStart: 12-13-2023 End: 60-16-3576Uyroaxvjd Result EncounterDmitry Thompson MD Work Phone: noms External Department UnsolicitedStart: 12-13-2023 End: 54-94-4675Oumyge OnlyDmitry Thompson MD Work Phone: noms CWM FMComment on above:Elevated PSA (Primary Dx) Start: 12-02-2023 End: 95-06-6241Brifpq flowsBrian Thompson MD Work Phone: noms CWM FMStart: 12-02-2023 End: 42-27-3821Zgbsng Jerry Thompson MD Work Phone: NOWN CWM FMStart: 12-02-2023 End: 96-43-1701Virtjxt encounter procedureDmitry Thompson MD Work Phone: noms HealthcareStart: 12-02-2023 End: 51-12-9203Kawmtxxe preventive med est patient 65yrs& olderDmitry Thompson MD Work Phone: noms CWM FMComment on above:Annual physical exam (Primary Dx); Colon cancer screeningStart: 12-02-2023 End: 57-47-6766xlizmicjxpSDPE NADERERNot AvailableStart: 11-14-2022 End: 38-30-9334xkwfhbujglUCNVLHR [facility] Start: 12-27-2021 End: 84-13-2424hcambcdsmeQHUENYKJ EBERLYFacility:B0Ctbkj: 12-21-2021 End: 42-86-6134rkshxvdtkjHKDYACAY EBERLYFacility:S5Eyxwd: 03-31-2021 End: 45-20-0416zrungpvcreOHNSOGIT EBERLYFacility:H1 Procedures DateProcedureProcedure DetailPerforming ClinicianStart: 68-34-4717JHD TOTAL+% FREEGeneric External Data ProviderStart: 91-10-5372HY prostate wo/w López Thompson MD Work Phone: Start: 39-39-4165SdqwmyspyfhMfawsaq ProviderStart: 31-67-8461HNI CBC WITH AUTO Dion Thompson MD Work Phone: ColonoscopyKWABENA MOISÉSJayDENAE Plan of Treatment DateCare ActivityDetailAuthorStart: 68-33-2522Vrxktdgez for malignant neoplasm of colonNOMS HealthcareStart: 91-92-2015SumqxbkssLakeHealth Beachwood Medical Centertart: 37-29-5552AhwmulkveLakeHealth Beachwood Medical Centertart: 12-07-2024 End: 51-19-7980Hhiyjjt encounter mlognkano50/15/2025 8:00 AM EDT Office Visit [facility] [address] [place] [phone] Dmitry Thompson MD [address] [place] [id number] [facility] CWM FMStart: 57-81-3047Vunhxshdh vaccinationInfluenza Vaccine (#1)NOMS HealthcareStart: 12-30-2023 End: 80-89-3328Ymiftqg encounter /07/2024 1:30 PM EDT Office Visit [facility] BWLizette GENS [address] [place] [phone] Chhaya Willard DO [address] [place] [address] [facility] GENSComment on above: ArrivedStart: 12-02-2023 End: 37-01-8723Bcrlg metabolic 1998 panel - Serum or PlasmaBasic metabolic panel Lab Routine Annual physical exam Expected: 12/02/2023 (Approximate), Expires: 12/01/2024[facility] HealthcareComment on above:Expected: 12/02/2023 (Approximate), Expires: 12/01/2024Start: 12-02-2023 End: 92-86-9253PDU W Auto Differential panel - BloodCBC and differential Lab Routine Annual physical exam Expected: 12/02/2023 (Approximate), Expires: 0 12/01/2024[facility] HealthcareComment on above:Expected: 12/02/2023 (Approximate), Expires: 12/01/2024Start: 12-02-2023 End: 14-62-7092Usbofvpxoh A1c/Hemoglobin.total in BloodHemoglobin A1c Lab Routine Annual physical exam Expected: 12/02/2023 (Approximate), Expires: 12/01/2024[facility] Healthcare Work Phone: Comment on above:Expected: 12/02/2023 (Approximate), Expires: 12/01/2024Start: 12-02-2023 End: 29-48-4337Yzjpcdm function 2000 panel - Serum or PlasmaHepatic function panel Lab Routine Annual physical exam Expected: 12/02/2023 (Approximate), Expires: 12/01/2024[facility] HealthcareComment on above:Expected: 12/02/2023 (Approximate), Expires: 12/01/2024Start: 12-02-2023 End: 88-62-9966Xzwbt 1996 panel - Serum or PlasmaLipid panel Lab Routine Annual physical exam Expected: 12/02/2023 (Approximate), Expires: 12/01/2024[facility] HealthcareComment on above:Expected: 12/02/2023 (Approximate), Expires: 12/01/2024Start: 12-02-2023 End: 94-61-4883Dwlkiexf specific Ag [Mass/volume] in Serum or PlasmaPSA Lab Routine Annual physical exam Expected: 12/02/2023 (Approximate), Expires: 12/01/2024[facility] HealthcareComment on above:Expected: 12/02/2023 (Approximate), Expires: 12/01/2024Start: 12-02-2023 End: 91-68-9453Bxqeefaelhi [Units/volume] in Serum or PlasmaTSH Lab Routine Annual physical exam Expected: 12/02/2023 (Approximate), Expires: 12/01/2024[facility] HealthcareComment on above:Expected: 12/02/2023 (Approximate), Expires: 12/01/2024Start: 12-02-2023 End: 85-73-8041Plovphe encounter guhihyifa93/09/2024 9:15 AM EDT Office Visit [facility] [address] [place] [address] Dmitry Thompson MD [address] [place] [phone] ArrivedSILVER LAKE [facility] FMComment on above:ArrivedStart: 60-51-2912Aqkufaudu vaccinationInfluenza Vaccine (#1)[facility] HealthcareStart: 76-25-1996Ujpidgjmzshn Vaccine: 65+ Years (1 of 1 - PCV)Pneumococcal Vaccine: 65+ Years (1 of 1 - PCV) [facility] HealthcareStart: 43-35-5386Fnubrdlpuvsc Vaccine: 65+ Years (1 of 1 - PCV) Pneumococcal Vaccine: 65+ Years (1 of 1 - PCV)[facility] HealthcareStart: 1955 Screening for malignant neoplasm of colonNOWI HealthcareComprehensive metabolic 2000 panel - Serum or PlasmaPromedica Toledo HospitalPatient Education Know your [facility] Work Phone: [facility] Immunizations Immunization DateImmunizationNotesCare JvsbgqpmOztodluq47-62-0777sdwocpq, mumps and rubella virus vaccineKGAURI LOAIZA [facility] Payers DatePayer CategoryPayerPolicy [id number]-[id number] 2024Medicare [id number] Health Insurance [id number] 2024Self-pay2024Medicare [id number] Cross Blue Shield BCBS Member Subscriber Plan / Payer (Effective 2022-Present) Name: Carmen Eason Member ID: [id number] Relation to Subscriber: Self Name: Carmen Eason Subscriber ID: [id number] Payer ID: Not on file Type: Not on file Address: [place] [id number] [facility] [id number] 2022-Present [phone] [place] [id number] [id number] 2.1.886081.3.57[id number] 2..1.637014.3.57[id number] 2..1.757533.3.57[id number] 2.16.840.1.430315.3.579.2.[id number] 2.840.1.318928.3.579.[id number] 2.840.1.901164.3.579.[id number] 2.0.1.724045.3.57[id number] 2.0.1.685190.3.57[id number] 2.840.1.733674.3.57[id number] 2.0.1.364324.3.57[id number] 2.0.1.434658.3.57[id number] 2.0.1.666442.3.579.[id number] 2.0.1.121208.3.57[id number] 2..1.131958.3.579.[id number] 2.840.1.230365.3.579.2.495Epoxccd21372714 2.840.1.373349.3.579.2.531 [id number] 2.840.1.263[id number] 2.840.1.469440.3.579.2.531 Social History DateTypeDetailFacilityStart: 12-02-2023 End: 40-84-7369Pdnetlv smoking status NHISNever smoked tobaccoNOMS Healthcare Start: 21-45-2130Gccikrh use and exposureSmokeless tobacco non-userNOMS HealthcareStart: 12-02-2023 End: 55-71-5304Wvaowdo of Social functionNOMS HealthcareStart: 12-02-2023 End: 88-32-1961Uhbrfqe use panelCorey Hospitaltart: 1955 Sex assigned at birthNot on fileFILLMORE [facility] HealthcareTobacco smoking status NHIS Unknown if ever smokedNOMS HealthcareStart: 56-10-0814EyyFekh (finding)[facility] Centertart: 86-48-5712Smz Assigned At BirthNorwalk Memorial HospitalTobacco smoking statusNeverExecutive [facility] of [facility] Hospitalexual OrientationExec[facility] Functional Status WfleZfeovkvnboBseoivUlvzawyk80-28-5468Maedujiwpq StatusN/AExec[facility] of [facility]01-27-2025Functional StatusN/[facility]12-02-2024Functional StatusN/AExec[facility] of [place] 333140-07-2024Functional StatusN/AExec[facility] of [facility] Clinical Notes 11-14-2022 to 12-07-2024 Note Date & MijsKdomUwclsogj52-46-6816 Evaluation note* Diagnosis Onset Date Resolution Status Admit Date Annual physical exam acuteSeptember 2024 7:56amChest painacuteSeptember 2024 7:56am [facility] Work Phone: 1(328) 209-400809-15-2025 Evaluation note* Diagnosis Onset Date Resolution Status Admit Date Annual physical exam acuteSeptember 2024 7:56amChest painacuteSeptember 2024 7:56am Obstructive sleep apneaacuteOctober 2024 1:26pmAbnormal cardiovascular stress testnoneactiveOctober 2024 1:26pmAtypical anginanoneactiveOctober 2024 1:26pm [facility] Work Phone: 1(197) 960-295608-04-2025 Hospital Discharge instructions Patient Education 10/26/2024 10:04:55 Prostate Cancer Screening Prostate Cancer Screening Prostate cancer screening is testing that is done to check for the presence of prostate cancer in men. The prostate gland is a walnut-sized gland that is located below the bladder and in front of therectum in males. The function of the prostate is to add fluid to semen during ejaculation. Prostatecancer is one of the most common types of cancer in men. Who should have prostate cancer screening? Screening recommendations vary based on age and other risk factors, as well as between the professional organizations who make the recommendations. In general, screening is recommended if: You are age 50 to 70 and have an average risk for prostate cancer. You should talk with your healthcare provider about your need for screening and [...] diagnosed with prostate cancer. The risk is higherif your family member's cancer occurred at an early age or if you have multiple family members withprostate cancer at an early age. ?Being a [...] is a blood test called the prostate-specific antigen(PSA) test. PSA is a protein that is [...] treatment? Where to find more information [place] Cancer Society: www.cancer.org [place] Urological Association: www.auanet.org Contact a health care [...] the recommended screening test for prostate cancer, butit has associated risks. Discuss the risks and [...] provider. Document Revised: 09/04/2021 Document Reviewed: 09/04/2021 [employer] Patient Education 2023 [employer]. Follow Up Care 09/28/2024 09:26:40 With:JOSSE SINGH, DIONISIO RICH Address: When: Unknown [facility] 08-04-2025 NotePatient Education Oncology Prostate Cancer Screening Prostate cancer screening is testing that is done to check for the presence of prostate cancer in men. The prostate gland is a walnut-sized gland that is located below the bladder and in front of therectum in males. The function of the prostate is to add fluid to semen during ejaculation. Prostatecancer is one of the most common types of cancer in men. Who should have prostate cancer screening? Screening recommendations vary based on age and other risk factors, as well as between the professional organizations who make the recommendations. In general, screening is recommended if: ??? You are age 50 to 70 and [...] have a 10- to 15-year life expectancy. ??? You are younger than age 50, and [...] In general, screening is not recommended if: ??? You are younger than age 40. ??? You are between the ages of 40 and 49 and you have no risk factors. ??? You are 70 years of age or [...] is a blood test called the prostate-specific antigen(PSA) test. PSA is a protein that is made in the prostate. As you age, your prostate naturally produces more PSA. Abnormally high PSA levels may be caused by: ??? Prostate cancer. ??? An enlarged prostate that is not caused by cancer (benign prostatic hyperplasia, or BPH). This condition is very common in older men. ??? A prostate gland infection (prostatitis) or urinary tract infection. ??? Certain medicines such as male hormones (like [...] you may need more tests, such as: ??? A physical exam to check the size of your prostate gland, if not done as part of screening. ??? Blood and imaging tests. ??? A procedure to remove tissue samples from your prostate gland for testing (biopsy). This is theonly way to know for certain if you have prostate cancer. What are the benefits of prostate cancer screening? Screening can help to identify cancer at an early stage, before symptoms start and when the cancer can be treated more easily. ??? There is a small chance that screening [...] Questions to ask your health care provider ??? When should I start prostate cancer screening? What is my risk for prostate cancer? How often do I need screening? What type of screening tests do I need? How do I get my test results? What do my results mean? Do I need treatment? Where to find more information ??? [place] Cancer Society: www.cancer.org ??? [place] Urological Association: www.auanet.org Contact a health care provider if: ??? You have difficulty urinating. ??? You have pain when you urinate or ejaculate. ??? You have blood in your urine or semen. ??? You have pain in your back or in the area of your prostate. Summary ??? Prostate cancer is a common type of cancer in men. The prostate gland (more content not included)...[facility]07-07-2025 Hospital Discharge instructions Patient Education 09/28/2024 09:18:39 Prostate Cancer Screening Prostate Cancer Screening Prostate cancer screening is testing that is done to check for the presence of prostate cancer in men. The prostate gland is a walnut-sized gland that is located below the bladder and in front of therectum in males. The function of the prostate is to add fluid to semen during ejaculation. Prostatecancer is one of the most common types of cancer in men. Who should have prostate cancer screening? Screening recommendations vary based on age and other risk factors, as well as between the professional organizations who make the recommendations. In general, screening is recommended if: You are age 50 to 70 and have an average risk for prostate cancer. You should talk with your healthcare provider about your need for screening and [...] diagnosed with prostate cancer. The risk is higherif your family member's cancer occurred at an early age or if you have multiple family members withprostate cancer at an early age. ?Being a [...] is a blood test called the prostate-specific antigen(PSA) test. PSA is a protein that is [...] treatment? Where to find more information [place] Cancer Society: www.cancer.org [place] Urological Association: www.auanet.org Contact a health care [...] the recommended screening test for prostate cancer, butit has associated risks. Discuss the risks and [...] provider. Document Revised: 09/04/2021 Document Reviewed: 09/04/2021 [employer] Patient Education 2023 [employer] Follow Up Care 05/07/2024 10:32:15 With:HILARIO LOAIZA MD, URL Address: When: Unknown [facility] 07-07-2025 NotePatient Education Oncology Prostate Cancer Screening Prostate cancer screening is testing that is done to check for the presence of prostate cancer in men. The prostate gland is a walnut-sized gland that is located below the bladder and in front of therectum in males. The function of the prostate is to add fluid to semen during ejaculation. Prostatecancer is one of the most common types of cancer in men. Who should have prostate cancer screening? Screening recommendations vary based on age and other risk factors, as well as between the professional organizations who make the recommendations. In general, screening is recommended if: ??? You are age 50 to 70 and [...] have a 10- to 15-year life expectancy. ??? You are younger than age 50, and [...] In general, screening is not recommended if: ??? You are younger than age 40. ??? You are between the ages of 40 and 49 and you have no risk factors. ??? You are 70 years of age or [...] is a blood test called the prostate-specific antigen(PSA) test. PSA is a protein that is made in the prostate. As you age, your prostate naturally produces more PSA. Abnormally high PSA levels may be caused by: ??? Prostate cancer. ??? An enlarged prostate that is not caused by cancer (benign prostatic hyperplasia, or BPH). This condition is very common in older men. ??? A prostate gland infection (prostatitis) or urinary tract infection. ??? Certain medicines such as male hormones (like [...] you may need more tests, such as: ??? A physical exam to check the size of your prostate gland, if not done as part of screening. ??? Blood and imaging tests. ??? A procedure to remove tissue samples from your prostate gland for testing (biopsy). This is theonly way to know for certain if you have prostate cancer. What are the benefits of prostate cancer screening? Screening can help to identify cancer at an early stage, before symptoms start and when the cancer can be treated more easily. ??? There is a small chance that screening [...] Questions to ask your health care provider ??? When should I start prostate cancer screening? What is my risk for prostate cancer? How often do I need screening? What type of screening tests do I need? How do I get my test results? What do my results mean? Do I need treatment? Where to find more information ??? [place] Cancer Society: www.cancer.org ??? [place] Urological Association: www.auanet.org Contact a health care provider if: ??? You have difficulty urinating. ??? You have pain when you urinate or ejaculate. ??? You have blood in your urine or semen. ??? You have pain in your back or in the area of your prostate. Summary ??? Prostate cancer is a common type of cancer in men. The prostate gland (more content not included)...[facility]02-13-2025 Hospital Discharge instructions Patient Education 05/07/2024 10:30:15 Prostate Cancer Screening Prostate Cancer Screening Prostate cancer screening is testing that is done to check for the presence of prostate cancer in men. The prostate gland is a walnut-sized gland that is located below the bladder and in front of therectum in males. The function of the prostate is to add fluid to semen during ejaculation. Prostatecancer is one of the most common types of cancer in men. Who should have prostate cancer screening? Screening recommendations vary based on age and other risk factors, as well as between the professional organizations who make the recommendations. In general, screening is recommended if: You are age 50 to 70 and have an average risk for prostate cancer. You should talk with your healthcare provider about your need for screening and [...] diagnosed with prostate cancer. The risk is higherif your family member's cancer occurred at an early age or if you have multiple family members withprostate cancer at an early age. ?Being a [...] is a blood test called the prostate-specific antigen(PSA) test. PSA is a protein that is [...] treatment? Where to find more information [place] Cancer Society: www.cancer.org [place] Urological Association: www.auanet.org Contact a health care [...] the recommended screening test for prostate cancer, butit has associated risks. Discuss the risks and [...] provider. Document Revised: 09/04/2021 Document Reviewed: 09/04/2021 [employer] Patient Education 2023 [employer]. Follow Up Care 04/20/2024 13:58:45 With:HILARIO LOAIZA MD, URL Address: When: Unknown [facility] 02-13-2025 NotePatient Education Oncology Prostate Cancer Screening Prostate cancer screening is testing that is done to check for the presence of prostate cancer in men. The prostate gland is a walnut-sized gland that is located below the bladder and in front of therectum in males. The function of the prostate is to add fluid to semen during ejaculation. Prostatecancer is one of the most common types of cancer in men. Who should have prostate cancer screening? Screening recommendations vary based on age and other risk factors, as well as between the professional organizations who make the recommendations. In general, screening is recommended if: ??? You are age 50 to 70 and [...] have a 10- to 15-year life expectancy. ??? You are younger than age 50, and [...] In general, screening is not recommended if: ??? You are younger than age 40. ??? You are between the ages of 40 and 49 and you have no risk factors. ??? You are 70 years of age or [...] is a blood test called the prostate-specific antigen(PSA) test. PSA is a protein that is made in the prostate. As you age, your prostate naturally produces more PSA. Abnormally high PSA levels may be caused by: ??? Prostate cancer. ??? An enlarged prostate that is not caused by cancer (benign prostatic hyperplasia, or BPH). This condition is very common in older men. ??? A prostate gland infection (prostatitis) or urinary tract infection. ??? Certain medicines such as male hormones (like [...] you may need more tests, such as: ??? A physical exam to check the size of your prostate gland, if not done as part of screening. ??? Blood and imaging tests. ??? A procedure to remove tissue samples from your prostate gland for testing (biopsy). This is theonly way to know for certain if you have prostate cancer. What are the benefits of prostate cancer screening? Screening can help to identify cancer at an early stage, before symptoms start and when the cancer can be treated more easily. ??? There is a small chance that screening [...] Questions to ask your health care provider ??? When should I start prostate cancer screening? What is my risk for prostate cancer? How often do I need screening? What type of screening tests do I need? How do I get my test results? What do my results mean? Do I need treatment? Where to find more information ??? [place] Cancer Society: www.cancer.org ??? [place] Urological Association: www.auanet.org Contact a health care provider if: ??? You have difficulty urinating. ??? You have pain when you urinate or ejaculate. ??? You have blood in your urine or semen. ??? You have pain in your back or in the area of your prostate. Summary ??? Prostate cancer is a common type of cancer in men. The prostate gland (more content not included)...[facility]12-02-2024 Hospital Discharge instructions Patient Education 02/24/2024 11:19:20 Transrectal Ultrasound-Guided Prostate Biopsy Transrectal Ultrasound-Guided Prostate Biopsy A transrectal ultrasound-guided prostate biopsy is a procedure to remove samples of prostate tissuefor testing. The prostate is a walnut-sized gland that is located below the bladder and in front ofthe rectum. During this procedure, a small device (probe) is lubricated and put inside the rectum. The probe sends out sound waves that make a picture of the prostate and surrounding tissues (transrectal ultrasound). The images are used to help guide the process of removing the samples. The samplesare taken to a lab to be checked for prostate cancer. This procedure is usually done to evaluate the prostate gland of men who have raised (elevated) levels of prostate-specific antigen (PSA), which can be a sign of prostate cancer or prostate enlargement related to aging (benign prostatic hyperplasia, or BPH). Tell a health care provider about: Any allergies you have. All medicines you are taking, including vitamins, herbs, eye drops, creams, and kedm-rdv-pgcheeb medicines. Any problems you or family members have had with anesthetic medicines. Any bleeding problems you have. Any surgeries you have had. Any medical conditions you have. Any prostate infections you have had. What are the risks? Generally, this is a safe procedure. However, problems may occur, including: Prostate infection. Bleeding from the rectum. Blood in the urine. Allergic reactions to medicines. Damage to surrounding structures such as blood vessels, organs, or muscles. Difficulty passing urine. Nerve damage. This is usually temporary. What happens before the procedure? Medicines Ask your health care provider about: Changing or stopping your regular medicines. This is especially important if you are taking diabetes medicines or blood thinners. Taking medicines such as aspirin and ibuprofen. These medicines can thin your blood. Do not take these medicines unless your health care provider tells you to take them. Taking bdco-hsz-czsitgd medicines, vitamins, herbs, and supplements. General instructions Follow instructions from your health care provider about eating and drinking. In most instances, you will not need to stop eating and drinking completely before the procedure. You will be given an enema. During an enema, a liquid is injected into your rectum to clear out waste. You may have a blood or urine sample taken. Ask your health care provider what steps will be taken to help prevent infection. These steps may include: ?Washing skin with a germ-killing soap. ?Taking antibiotic medicine. If you will be going home right after the procedure, plan to have a responsible adult: ?Take you home from the hospital or clinic. You will not be allowed to drive. ?Care for you for the time you are told. What happens during the procedure? An IV will be inserted into one of your veins. You will be given one or both of the following: ?A medicine to help you relax (sedative). ?A medicine to numb the area (local anesthetic). You will be placed on your left side, and your knees will be bent toward your chest. A probe with lubricated gel will be placed into your rectum, and images will be taken of your prostate and surrounding structures. Numbing medicine will be injected into your prostate. A biopsy needle will be inserted through your rectum or perineum and guided to your prostate using the ultrasound images. Prostate tissue samples will be removed, and the needle and probe will then be removed. The biopsy samples will be sent to a lab to be tested. The procedure may vary among health care providers and hospitals. What happens after the procedure? Your blood pressure, heart rate, breathing rate, and blood oxygen level will be monitored until youleave the hospital or clinic. You may have some discomfort in the rectal area. You will be given pain medicine as needed. If you were given a sedative during the procedure, it can affect you for several hours. Do not drive or operate machinery until your health care provider says that it is safe. It is up to you to get the results of your procedure. Ask your health care provider, or the department that is doing the procedure, when your results will be ready. Keep all follow-up visits. This is important. Summary A transrectal ultrasound-guided biopsy removes samples of tissue from your prostate using ultrasound-guided sound waves to help guide the process. This procedure is usually done to evaluate the prostate gland of men who have raised (elevated) levels of prostate-specific antigen (PSA), which can be a sign of prostate cancer or prostate enlargement related to aging. After your procedure, you may feel some discomfort in the rectal area. Plan to have a responsible adult take you home from the hospital or clinic, and follow up with yourhealth care provider for your results. This information is not intended to replace advice given to you by your health care provider. Make sure you discuss any questions you have with your health care provider. Document Revised: 09/04/2021 Document Reviewed: 09/04/2021 [employer] Patient Education 2023 [employer]. Follow Up Care 02/13/2024 16:03:36 With:HILARIO LOAIZA MD, URL Address: When: Unknown [facility] 12-02-2024 NotePatient Education Oncology Transrectal Ultrasound-Guided Prostate Biopsy A transrectal ultrasound-guided prostate biopsy is a procedure to remove samples of prostate tissuefor testing. The prostate is a walnut-sized gland that is located below the bladder and in front ofthe rectum. During this procedure, a small device (probe) is lubricated and put inside the rectum. The probe sends out sound waves that make a picture of the prostate and surrounding tissues (transrectal ultrasound). The images are used to help guide the process of removing the samples. The samplesare taken to a lab to be checked for prostate cancer. This procedure is usually done to evaluate the prostate gland of men who have raised (elevated) levels of prostate-specific antigen (PSA), which can be a sign of prostate cancer or prostate enlargement related to aging (benign prostatic hyperplasia, or BPH). Tell a health care provider about: ??? Any allergies you have. ??? All medicines you are taking, including vitamins, herbs, eye drops, creams, and fonm-edv-dibmxjd medicines. ??? Any problems you or family members have had with anesthetic medicines. ??? Any bleeding problems you have. ??? Any surgeries you have had. ??? Any medical conditions you have. ??? Any prostate infections you have had. What are the risks? Generally, this is a safe procedure. However, problems may occur, including: ??? Prostate infection. ??? Bleeding from the rectum. ??? Blood in the urine. ??? Allergic reactions to medicines. ??? Damage to surrounding structures such as blood vessels, organs, or muscles. ??? Difficulty passing urine. ??? Nerve damage. This is usually temporary. What happens before the procedure? Medicines Ask your health care provider about: ??? Changing or stopping your regular medicines. This is especially important if you are taking diabetes medicines or blood thinners. ??? Taking medicines such as aspirin and ibuprofen. These medicines can thin your blood. Do not take these medicines unless your health care provider tells you to take them. ??? Taking iwrt-rmm-chuqhli medicines, vitamins, herbs, and supplements. General instructions ??? Follow instructions from your health care provider about eating and drinking. In most instances, you will not need to stop eating and drinking completely before the procedure. ??? You will be given an enema. During an enema, a liquid is injected into your rectum to clear outwaste. ??? You may have a blood or urine sample taken. ??? Ask your health care provider what steps will be taken to help prevent infection. These steps may include: ? Washing skin with a germ-killing soap. ? Taking antibiotic medicine. ??? If you will be going home right after the procedure, plan to have a responsible adult: ? Take you home from the hospital or clinic. You will not be allowed to drive. ? Care for you for the time you are told. What happens during the procedure? An IV will be inserted into one of your veins. ??? You will be given one or both of the following: ? A medicine to help you relax (sedative). ? A medicine to numb the area (local anesthetic). ??? You will be placed on your left side, and your knees will be bent toward your chest. ??? A probe with lubricated gel will be placed into your rectum, and images will be taken of your prostate and surrounding structures. ??? Numbing medicine will be injected into your prostate. ??? A biopsy needle will be inserted through your rectum or perineum and guided to your prostate using the ultrasound images. ??? Prostate tissue samples will be removed, and the needle and probe will then be removed. ??? The biopsy samples will be sent to a lab to be tested. The procedure may vary among health care providers and hospitals. What happens after the procedure? Your blood pressure, heart rate, breathing rate, and blood oxygen level will be monitored untilyou leave the hospital or clinic. ??? You may have some discomfort in the rectal area. You will be given pain medicine as needed. ??? If you were given a sedative during the procedure, it can affect you for several hours. Do not drive or operate machinery until your health care provider says that it is safe. ??? It is up to you to get the results of your procedure. Ask your health care provider, or the department that is doing the procedure, when your results will be ready. ??? Keep all follow-up visits. This is important. Summary ??? A transrectal ultrasound-guided biopsy removes samples of tissue from your prostate using ultrasound-guided sound waves to help guide the process. ??? This procedure is usually done to evaluate the prostate gland of men who have raised (elevated)levels of prostate-specific antigen (PSA), which can be a sign of prostate cancer or prostate enlargement related to aging. ??? After your procedure, you may feel some discomfort in the rectal area. ?? (more content not included)...[facility]10-07-2024 History of Present illness Narrative* Chhaya Willard, DO - 12/30/2023 1:30 PM EDT General Surgery H&P Carmen Eason 1955 Carmen Eason is a 68 y.o. male presents with chief complaint of Colonoscopy (Pt presents todayfor a colonoscopy consult. Pt denies/admits to: admits to having a colonoscopy before. Last colonoscopy wasn about 10 years ago and it was normal. Pt denies abdominal pain. Pt denies rectal bleeding.Pt denies changes in bowel movements. Pt denies a family history of colon cancer that they know of.Pt denies any concern today. ) Denies hx [...] cancer. Colonoscopy can be scheduled electively. Patient informedof the risks of procedure which include but [...] you, Herminio Willard DO documented in this encounterSac-Osage [id number] Hospital Discharge instructions Patient Education 12/30/2023 10:48:00 Prostate Cancer Screening Prostate Cancer Screening Prostate cancer screening is testing that is done to check for the presence of prostate cancer in men. The prostate gland is a walnut-sized gland that is located below the bladder and in front of therectum in males. The function of the prostate is to add fluid to semen during ejaculation. Prostatecancer is one of the most common types of cancer in men. Who should have prostate cancer screening? Screening recommendations vary based on age and other risk factors, as well as between the professional organizations who make the recommendations. In general, screening is recommended if: You are age 50 to 70 and have an average risk for prostate cancer. You should talk with your healthcare provider about your need for screening and [...] diagnosed with prostate cancer. The risk is higherif your family member's cancer occurred at an early age or if you have multiple family members withprostate cancer at an early age. ?Being a [...] is a blood test called the prostate-specific antigen(PSA) test. PSA is a protein that is [...] treatment? Where to find more information [place] Cancer Society: www.cancer.org [place] Urological Association: www.auanet.org Contact a health care [...] the recommended screening test for prostate cancer, butit has associated risks. Discuss the risks and [...] provider. Document Revised: 09/04/2021 Document Reviewed: 09/04/2021 [employer] Patient Education 2023 [employer]. 12/30/2023 10:47:59 Erectile Dysfunction Erectile Dysfunction Erectile dysfunction (ED) is the inability to get or keep an erection in order to have sexual intercourse. ED is considered a symptom of an underlying disorder and is not considered a disease. ED mayinclude: Inability to get an erection. Lack of [...] back or pelvic injuries, multiple sclerosis, Parkinson's disease,spinal cord injury, and stroke. Certain medicines, such [...] or the penis may be too curved toallow for intercourse. Never having nighttime or morning [...] penis. During this procedure, a blood vessel froma different part of the body is placed into the penis to allow blood to flow around (bypass) damaged or blocked blood vessels. Lifestyle changes, such as exercising more, losing weight, and quitting smoking. Follow these instructions at home: Medicines Take oxln-yed-vxdysmo and prescription medicines only as told by your health care provider. Do not increase the dosage without first discussing it with your health care provider. If you are using self-injections, do injections as directed by your health care provider. Make sureyou avoid any veins that are on the surface of the penis. After giving an injection, apply pressureto the injection site for 5 minutes. Talk [...] you need help quitting, ask your health careprovider. Before using a vacuum pump, read the instructions that come with the pump and discuss any questionswith your health care provider. Keep all follow-up [...] provider. Document Revised: 06/07/2021 Document Reviewed: 06/07/2021 [employer] Patient Education 2023 [employer]. 12/30/2023 10:47:57 Benign Prostatic Hyperplasia Benign Prostatic Hyperplasia Benign prostatic hyperplasia (BPH) is an enlarged prostate gland that is caused by the normal agingprocess. The prostate may get bigger as a man gets older. The condition is not caused by cancer. The prostate is a walnut-sized gland that is involved in the production of semen. It is located in front of the rectum and below the bladder. The bladder stores urine. The urethra carries stored urine ou t of the body. An enlarged prostate can press on the urethra. This can make it harder to pass urine. The buildup of urine in the bladder can cause infection. Back pressure and infection may progress to bladder damage and kidney (renal) failure. What are the causes? This condition is part of the normal aging process. However, not all men develop problems from thiscondition. If the prostate enlarges away from the [...] urethra. Follow these instructions at home: Take bkbe-zxa-pvifziv and prescription medicines only as told by [...] provider. Document Revised: 09/27/2021 Document Reviewed: 09/27/2021 [employer] Patient Education 2023 [employer]. Follow Up Care 12/23/2023 09:57:46 With:JOSSE SINGH, HILARIO, ADRIANNAL Address: When: Unknown [facility] 10-07-2024 NotePatient Education Oncology Prostate Cancer Screening Prostate cancer screening is testing that is done to check for the presence of prostate cancer in men. The prostate gland is a walnut-sized gland that is located below the bladder and in front of therectum in males. The function of the prostate is to add fluid to semen during ejaculation. Prostatecancer is one of the most common types [...] , screening in this age group is generallyreserved for men who have a 10- to [...] is a blood test called the prostate-specific antigen(PSA) test. PSA is a protein that is [...] cancer, and most men with prostate cancer diefrom a different cause. What are the risks [...] Where to find more information ? [place] Cancer Society: www.cancer.org ? [place] Urological Association: www.auanet.org Contact a health care [...] front of the rectum. (more content not included)...[facility]09-09-2024 History of Present illness Narrative* Dmitry Thompson MD - 12/02/2023 9:41 AM EDTAssociated Problem(s): Annual physical exam Due for labs. Due for repeat colonoscopy and referral in chart. Discussed proper diet and regular aerobic exercise. Need aerobic exercise 5-6 days a week for 30 minutes at a time. Smaller portions and limit total calories. Tetanus every 10 years. Advised not to smoke. Discussed daily Aspirin therapy. * Dmitry Thompson MD - 12/02/2023 9:15 AM EDT Images from the original note were not included. Subjective Patient ID: Carmen Eason is a 68 y.o. male who presents for Annual Exam (wellness) and Abdominal Pain (Pain when eating). Presents for annual PE. Patient feels well today. Weight up 6 pounds. Recently not as active and not exercising or walking as much. Tries to watch diet and eat healthy. Increased fruits and vegetables. Smaller portions and limits snacking. Tries to limit total daily calories. Due for labs. Over 10 years since last colonoscopy and due for repeat. Review of Systems Constitutional: Negative for fatigue. Respiratory: Negative for cough, shortness of breath and wheezing. Cardiovascular: Negative for chest pain and palpitations. Gastrointestinal: Negative for abdominal pain, diarrhea, nausea and vomiting. Genitourinary: Negative for dysuria. Objective Physical Exam Constitutional: General: He is not in acute distress. Appearance: Normal appearance. HENT: Head: Normocephalic. Right Ear: Tympanic membrane and ear canal normal. Left Ear: Tympanic membrane and ear canal normal. Eyes: Extraocular Movements: Extraocular movements intact. Pupils: Pupils are equal, round, and reactive to light. Cardiovascular: Rate and Rhythm: Normal rate and regular rhythm. Heart sounds: No murmur heard. No friction rub. No gallop. Pulmonary: Breath sounds: Normal breath sounds. No wheezing, rhonchi or rales. Abdominal: General: Bowel sounds are normal. There is no distension. Palpations: Abdomen is soft. Tenderness: There is no abdominal tenderness. There is no guarding or rebound. Musculoskeletal: General: Normal range of motion. Left lower leg: No edema. Neurological: General: No focal deficit present. Mental Status: He is alert. Cranial Nerves: No cranial nerve deficit. Deep Tendon Reflexes: Reflexes normal. Assessment/Plan Problem List Items Addressed This Visit Annual physical exam - Primary Due for labs. Due for repeat colonoscopy and referral in chart. Discussed proper diet and regular aerobic exercise. Need aerobic exercise 5-6 days a week for 30 minutes at a time. Smaller portions and limit total calories. Tetanus every 10 years. Advised not to smoke. Discussed daily Aspirin therapy. Relevant Orders Hemoglobin A1c Basic metabolic panel CBC and differential Hepatic function panel Lipid panel PSA TSH Other Visit Diagnoses Colon cancer screening Relevant Orders Ambulatory referral to General Surgery documented in this encounterSac-Osage [id number] NoteNew patient here to establish care. Ref from Dr. Thompson for chest pain and palpitations. Had recent stress test, labs, and wore Holter monitor for 7 days. Says he's getting tired easier. He takes no medications, but is compliant with cpap therapy for BRODIE. Family hx is unknown as patient is adopted.[facility]08-23-[facility] NoteCardiology Clinic Note Chief Complaint: chest pain HPI: Carmen Eason is a 67 y.o. male With [...] mg daily. Discussed initiation of statin and beta-josi. Patient declines at this time -For palpitations, [...] or concerns. Cathi Sánchez MD [facility] No data available for this section [facility] Evaluation + Plan note Future Appointments Appointment Date:04/08/2024 12:00:00 PM Scheduled Provider: Location:[facility] Appointment Type:Urology CALL PAT FT Appointment Date:04/13/2024 03:00:00 PM Scheduled Provider: Location:[facility] Appointment Type:Urology FT Appointment Date:04/13/2024 03:00:00 PM Scheduled Provider: Location:FT.UROLOGY Appointment Type:US Prostate Urology (FT) Future Scheduled Tests Radiology* US Prostate, [facility] 04/13/24 [facility] Evaluation + Plan note Future Appointments Appointment Date:05/07/2024 10:40:00 AM Scheduled Provider:HILARIO LOAIZA MD Location:[facility] Appointment Type:URO Office Visit Diagnostic Tests Pending * Prostate Histology ([facility]) 04/20/24 [facility] Evaluation + Plan note Future Appointments Appointment Date:09/07/2024 09:40:00 AM Scheduled Provider:HILARIO LOAIZA MD Location:[facility] Appointment Type:URO Office Visit [facility] Evaluation + Plan note Future Appointments Appointment Date:10/26/2024 09:30:00 AM Scheduled Provider:HILARIO LOAIZA MD Location:[facility] Appointment Type:URO Office Visit [facility] Evaluation + Plan note Future Appointments Appointment Date:01/28/2025 09:30:00 AM Scheduled Provider:HILARIO LOAIZA MD Location:[facility] Appointment Type:URO Office Visit Diagnostic Tests Pending * PSA Free & Total 12/23/24 [facility] Evaluation note* Diagnosis Screening for malignant neoplasm of colon- Primary documented in this encounter [facility] HealthcareEvaluation noteNo assessment information availableSamaritan North Health Center Work Phone: Evaluation note* Diagnosis Annual physical exam- Primary Routine general medical examination at a health care facility Colon cancer screening Special screening for malignant neoplasms, colon documented in this encounter [facility] HealthcareEvaluation note* Diagnosis Elevated PSA- Primary Elevated prostate specific antigen (PSA) documented in this encounter [facility] HealthcareEvaluation note* Diagnosis Onset Date Resolution Status Admit Date Annual physical exam acuteSept2024 7:56am [facility] Work Phone: Hospital Discharge instructions No data available for this section [facility] Hospital Discharge instructionsAmbulatory Orders* Cardiac Catheterization Location: None [facility] Work Phone: Hospital Discharge instructionsAdditional Instructions 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 1. You were given conscious sedation. Do not operate a vehicle, power tools, make important decisions, or drink alcohol for 24 hours. You might be drowsy or light headed. Return to the Emergency Room if you have trouble breathing, walking or nausea and vomiting. 2. FOR BLEEDING: Apply continuous pressure to the site and call 911. 3. Operative Site Care: Keep the dressing clean and dry. You may change the dressing only if soiled or wet. You may remove the dressing the following morning. You may wash over the puncture site in the shower. If the puncture site is at the wrist no soaking for 3 days. Some bruising or slight swelling may be present. -Signs of infection are redness, warmth, swelling, getting more sore, colored drainage, fever or chills. -Should the arm or leg become cold, numb, blue or white, call the leather goods ii assembler immediately. 4. ACTIVITY: You are advised to go directly home from the hospital. Restrict your activities for the rest of the day. Resume light or normal activities tomorrow. Do not engage in any activity that will stress the puncture site. Avoid heavy lifting (over 15 lbs.), straining or bending at the catheter site for 48 hours after discharge. If the puncture site is at the wrist do not manipulate wrist for 24 hours and no lifting more than 3 lbs for 3 days. 5. DIET:You may eat your regular diet when you desire. 6. MEDICATIONS: Resume your daily prescription schedule. Prescriptions may be sent with you if needed. Use as directed. When taking pain medications, you may experience dizziness or drowsiness. Do not drink alcohol or drive when taking pain medications. 7. If you should experience episodes of angina e.g. chest discomfort, heaviness, tightness, pressure, burning, with or without radiation to the neck, jaws, arms, or back- Use 1 Nitrostat under your tongue every 5-10 minutes, and up to 3 tablets. If no relief- Call 911 and go to the nearest Emergency Room. -Notify the office for recurrent angina, chest pain or other concerns. You may NOT drive yourself home! Follow the medication instructions provided on your discharge. If the dosages and instructions on this sheet differ from the dosage and instructions on the bottle, follow the instructions on the bottle. [facility] is not responsible for incorrect prescription information provided by the patient during their visit. Do not stop your medications without consulting your health care provider. Please take the list with you to your next doctor's appointment.[facility] Work Phone: Progress note No data available for this section [facility] Reason for referral (narrative)* Consultation (Routine) - Pending ReviewSpecialtyDiagnoses / ProceduresReferred By ContactReferred To ContactGeneral Surgery Diagnoses Colon cancer screening Procedures [place] OFFICE[facility]OUTPATIENT [facility] 60 MINUTES Dmitry Thompson MD [address] [place] [address] Chhaya Willard DO [address] [place] [address] Referral IDStatusReasonStart DateExpiration DateVisits RequestedVisits [id number] Review Specialty Services Required JACQUELINE Hernandez for referral (narrative)* Consultation (Routine) - Pending ReviewSpecialtyDiagnoses / ProceduresReferred By ContactReferred To Contact Urology Diagnoses Elevated PSA Procedures IA OFFICE/OUTPATIENT [facility] 60 MINUTES Dmitry Thompson MD [address] [place] [address] Talha Luu MD [address] [place] [address] Referral IDStatusReasonStart DateExpiration DateVisits RequestedVisits [id number] Review Specialty Services Required / JACQUELINE HealthcareThu for referral (narrative)No reason for referral information availableTogus [facility] Work Phone: Summary Purpose Family History No Family History Records FoundNo Family History Records FoundNo Family History Records Found No data available for this section No data available for this section No data available for this section No data available for this section No Family History Records Found No data available for this section No data available for this section No data available for this section No Family History Records FoundNo Family History Records FoundNo Family History Records Found Advance Directives No Advanced Directives Records Found Advance Directive Response Recorded Date/ Time Advance Directives No January 15, 2024 3:18pm Advance Directive Response Recorded Date/ Time Advance Directives No January 15, 2024 4:18pm Chief Complaint and Reason for Visit Chief Complaint Admit Date r97.20 February 12, 2024 10:12am Chief Complaint Admit Date Established Patient December 07, 2024 7:56am Reason for Visit Admit Date Annual physical exam December 07 7:56am Chief Complaint Admit Date Established Patient December 07, 2024 7:56am chest pain, unspecified January 11 1:26pm Reason for Visit Admit Date Annual physical exam December 07 7:56am Chest pain December 07, 2024 7:56am Chief Complaint Admit Date Established Patient December 07, 2024 7:56am chest pain, unspecified January 11 1:26pm R07.9 January 11, 2025 1 :31pm Chest Pain, Abnormal Stress Test January 22, 2025 10:20am Reason for Visit Admit Date Annual physical exam December 07 7:56am Chest pain December 07, 2024 7:56am Obstructive sleep apnea January 11 1:26pm Abnormal cardiovascular stress test Deco 2024 1:26pm Atypical angina January 11, 2025 1 :26pm Additional Source Comments (unrecognized sect ion and content) No Status Records FoundNo Status Records FoundNo Status Records FoundNo Status Records FoundNo Status Records FoundNo Status Records FoundNo Status Records Found INFORMATION SOURCE (unrecogn ized section and content) DATE CREATED AUTHOR 12/29/2021 [facility] DATE CREATED AUTHOR AUTHOR'S ORGANIZ ATION 12/05/2022 [facility] DATE CREATED AUTHOR AUTHOR'S ORGANIZ ATION 12/31/2023 [facility] DATE CREATED AUTHOR AUTHOR'S ORGANIZ ATION 05/09/2024 [facility] DATE CREATED AUTHOR AUTHOR'S ORGANIZ ATION 11/22/2024 [facility] DATE CREATED AUTHOR AUTHOR'S ORGANIZ ATION 01/25/2025 [facility] DATE CREATED AUTHOR AUTHOR'S ORGANIZ ATION 01/27/2025 [facility] Care Teams (unrecognized sec tion and content) Team MemberRelationshipSpecialtyStart DateEnd Date Dmitry Thompson MD [address] [place] [address] PCP - GeneralFamily Medicine12/02/23Team MemberRelationshipSpecialtyStart DateEnd Date Dmitry Thompson MD [address] [place] [address] PCP - [facility]12/02/23 Team Status: Active Member Role Status Dates Dmitry Thompson MD Primary Care Provider Active Team Status: Inactive Member Role Status Dates Hilario Loaiza MD Attending Provider Active Start: February 12, 2024 End: February 12, 2024[facility] Pricila Thompsoncommunity hospitalpatrick Care ProviderActiveStart: February 12, 2024 End: February 12, 2024Team MemberRelationshipSpecialtyStart DateEnd Date Dmitry Thompson MD [address] [place] [address] [facility] - [facility]12/02/23Team MemberRelationshipSpecialtyStart DateEnd Date Dmitry Thompson MD [address] [place] [address] [facility] - [facility]12/02/23Team MemberRelationshipSpecialtyStart DateEnd Date Dmitry Thompson MD [address] [place] [address] PCP - [facility]12/02/23Team MemberRelationshipSpecialtyStart DateEnd Date Dmitry Thompson MD [address] [place] [address] [facility] - [facility]12/02/23Team MemberRelationshipSpecialtyStart DateEnd Date Dmitry Thompson MD [address] [place] [address] PCP - [facility]12/02/23 Team Status: Inactive Member Role Status Dates Dmitry Thompson MD Primary Care Provider Active S tart: December 07, 2024 End: December 07, 2024Ilir Natarajan ProviderActiveStart: December 07, 2024 End: December 07, 2024 Team Status: Active Member Role/Relationship Status Dates Dmitry Thompson MD Primary Care Provider Active Team Status: Inactive Member Role/Relationship Status Dates Dmitry Thompson MD Primary Care Provider Active S tart: December 07, 2024 End: December 07, 2024Ilir Natarajan ProviderActiveStart: December 07, 2024 End: December 07, 2024 Team Status: Inactive Member Role/Relationship Status Dates Dmitry Thompson MD Primary Care Provider Active S tart: January 11, 2025 End: January 11, 2025Da Natarajan ProviderActiveStart: January 11, 2025 End: January 11, 2025GeIlir Gagnon ProviderActive Start: January 11, 2025 End: January 11, 2025 Team Status: Active Member Role/Relationship Status Dates Dmitry Thompson MD Primary Care Provider Active S tart: January 11, 2025 Ilir Coughlin ProviderActiveStart: January 11, 2025 Team Status: Inactive Member Role/Relationship Status Dates Dmitry Thompson MD Primary Care Provider Active S tart: January 11, 2025 End: January 11, 2025GeIlir Gagnon ProviderActive Start: January 11, 2025 End: January 11, 2025 Team Status: Active Member Role/Relationship Status Dates Dmitry Thompson MD Primary Care Provider Active S tart: January 22, 2025 Ilir Coughlin ProviderActiveStart: January 22, 2025 Yuri Adamson MDOther ProviderActiveStart: January 22, 2025 Reason for Visit (unrecogniz ed section and content) ReasonCommentsColonoscopyPt presents today for a colonoscopy consult. Pt denies/admits to: admits to having a colonoscopy before. Last colonoscopy wasn about 10 years ago and it was normal. Pt denies abdominal pain. Pt denies rectal bleeding. Pt denies changes in bowel movements. Pt denies a family history of colon cancer that they know of. Pt denies any concern today.ReasonCommentsAnnual ExamwellnessAbdominal PainPain when eating Goals (unrecognized section and content) Goals may be documented in a n alternate section FOR RECORDS PERTAINING TO PATIENTS WHO ARE [...] BE BASED ON THE PRIMARY CLINICAL RECORDS. [facility]. provides no warranty or guarantee of the accuracy or completeness of information in this document.
--- OUTSIDE RECORDS SUMMARY | 2025-01-27 07:05 | XMS_ITS | Clinical Summary ---
Author Organization [facility] Healthcare Address [address] [place] [address] Care Team Providers Care Paper Steamer Name Role Phone Dmitry Pierre MD Primary Care Provider [phone] Allergies Active AllergyReactionsCriticalityNoted DateCommentsInfluenza VaccinesOther 12/02/2023 Medications MedicationSigDispense QuantityRefillsLast FilledStart DateEnd DateStatus hydroxychloroquine (Plaquenil) 200 MG tablet Take 200 mg by mouth 1 (one) time per weekActive ciprofloxacin (Cipro) 500 MG tablet Indications:Prostatitis, unspecified prostatitis typeTAKE 1 TABLET (500 MG) BY MOUTH IN THE MORNING AND BEFORE BEDTIME 60 tablet 5Active Active Problems ProblemNoted DateDiagnosed DateElevated PSA12/13/2023llergic bwixnsmz04/09/2024 Benign prostatic hyperplasia with lower urinary tract oppuvuga60/09/2024 Gilbert's cmfswjus30/09/2024Obstructive sleep apnea12/02/2023Superficial phlebitis and thrombophlebitis of left lower fshovkesf61/09/2024Varicose veins of both lower extremities with pain12/02/2023nnual physical exam12/02/2023 Assessment & Plan (12/02/2023 9:41 AM EDT): Due for labs. Due for repeat colonoscopy and referral in chart. Discussed proper diet and regular aerobic exercise. Need aerobic exercise 5-6 days a week for 30 minutes at a time. Smaller portions and limit total calories. Tetanus every 10 years. Advised not to smoke. Discussed daily Aspirin therapy. Resolved Problems ProblemNoted DateDiagnosed DateResolved DateCentral chest pain12/02/2023 12/02/2023 Social History Tobacco UseTypesPacks/DayYears UsedDateSmoking Tobacco: NeverSmokeless Tobacco: Never Tobacco Cessation:Counseling Given: Not Answered Sex and Gender InformationValueDate RecordedSex Assigned at BirthNot on file Legal DjnQbwi3910/12/2022 9:17 AM EDTGender IdentityNot on fileSexual Orientation Not on file Last Filed Vital Signs Vital SignReadingTime TakenCommentsBlood Szypsxhy197/6810 1:26 PM EDT Rchwc923712/30/2023 1:26 PM OVHBkmrjxaqlii40.4 ??C (97.5 ??F)12/02/2023 9:18 AM EDTRespiratory Vgyg3785 1:26 PM EDTOxygen Zndppdqljz49%12/30/2023 1:26 PM EDTInhaled Oxygen Concentration--Yyqtoh565 kg (226 lb)12/30/2023 1:26 PM EDT Povtyu705.4 cm (6' 1 )12/30/2023 1:26 PM EDTBody Mass Index29.8210 1:26 PM EDT Plan of Treatment Not on file Insurance Care Teams Team MemberRelationshipSpecialtyStart DateEnd Date Dmitry Pierre MD PCP - GeneralFamily Medicine12/02/23
--- OUTSIDE RECORDS SUMMARY | 2025-01-27 07:05 | XMS_ITS | Clinical Summary ---
Author Organization [facility] Address [address] [place] [address] Care Team Providers Care Certified Detention Deputy Name Role Phone Dmitry Pierre MD Primary Care Provider [phone] Allergies No known active allergies Medications No known medications Active Problems ProblemNoted DateDiagnosed DateAbnormal stress test11/14/2022 Social History Tobacco UseTypesPacks/DayYears UsedDateSmoking Tobacco: NeverSmokeless Tobacco: NeverAlcohol UseStandard Drinks/WeekCommentsYes0 (1 standard drink = 0.6 oz pure alcohol)occasionalUT Safety & EnvironmentAnswerDate RecordedFear of Current or Ex-PartnerNot on file05/17/2023Emotionally AbusedNot on file05/17/2023hysically AbusedNot on file05/17/2023Sexually AbusedNot on file05/17/2023hysically or Sexually AbusedNot on file05/17/2023Sex and Gender InformationValueDate Recorded Sex Assigned at BirthNot on fileLegal DzkYhdv7011/08/2022 8:47 AM EDTGender IdentityNot on fileSexual OrientationNot on file Last Filed Vital Signs Vital SignReadingTime TakenCommentsBlood Cjouolpp92/6408 1:38 PM EDT Asuzw8909 1:38 PM EDTTemperature--Respiratory Rate--Oxygen Asptuynhzy79% 11/14/2022 1:38 PM EDTInhaled Oxygen Concentration--Awcumv076 kg (225 lb) 11/14/2022 1:38 PM YLFWeroqs495.4 cm (6' 1 )11/14/2022 1:38 PM EDTBody Mass Index29.6908 1:38 PM EDT Plan of Treatment Health MaintenanceDue DateLast DoneCommentsCT Kbswckodapqy07/12/1957Colonoscopy 1956Colorectal Cancer Bzkfngjkx56/12/1957FIT-DNA1956FIT1956 FOBT1956 5142Brxbdgwhhgthd39/12/1957Depression Okwdqkrmj60/12/1969Adult Tetanus 1978Pneumococcal Vaccine: 50+ Years (1 of 1 - PCV)2006Zoster Vaccines (1 of 2)2006Fall Risk Bqokbbzfc06/12/2022OVID-19 Vaccine (1 - 2024- season)2024Influenza Vaccine (#1)2024HIB VaccinesAged OutNo longer eligible based on patient's age to complete this topicHPV VaccinesAged OutNo longer eligible based on patient's age to complete this topicIPV Vaccines Aged OutNo longer eligible based on patient's age to complete this topic Meningococcal B VaccineAged OutNo longer eligible based on patient's age to complete this topicMeningococcal VaccineAged OutNo longer eligible based on patient's age to complete this topicRotavirus VaccinesAged OutNo longer eligible based on patient's age to complete this topic Insurance Care Teams Team MemberRelationshipSpecialtyStart DateEnd Date Dmitry Pierre MD [address] [facility] [place] [place] [address] CBT - Tzxsccu11/13/22
[2025-01-28 08:09] LABS: PSA, Free 0.71 ng/mL
== END 2025-01-27 07:02 | disposition home or self-care (01) ==
LOC: LAB 07:03
PROVIDERS: PCP Family Medicine
DX: R97.20 Elevated prostate specific antigen [PSA] (principal)
CPT/HCPCS: 36415; 84153; 84154